=== PATIENT | female | born 1960 | race Caucasian/White ===

== ENCOUNTER 2017-10-03 11:19 | Emergency (ER) | payer OTHER, SELFPAY ==
[2017-10-03 11:31] VITALS: BP 163/73; PULSE 92; RESP 16; TEMP 36.1; O2SAT 99; BMI 44.4
--- NOTE | 2017-10-03 11:47 | DI.RAD.S_ITS ---
PROCEDURE: XR TOE LT MIN 2V INDICATIONS: big toe injury 4 days ago TECHNIQUE: 3 views of the first toe(s) acquired. COMPARISON: None. FINDINGS: Bones: There is dislocation at the first PIP joint. No visualized fracture. No suspicious bony lesions. Soft tissues: No suspicious soft tissue densities. IMPRESSION: First PIP joint dislocation without visualized fracture. Dictated by: Cierra Lombardi M.D. on 10/03/2017 at 12:08 Approved by: Cierra Lombardi M.D. on 10/03/2017 at 12:43
--- NOTE | 2017-10-03 12:05 | ED_ITS ---
HPI - Skin/Abscess/Foreign Bdy General Chief complaint: Skin/Abscess/Foreign Body Stated complaint: PRESSURE WOUND ON LEFT BIG TOE Time Seen by Provider: 10/03/17 11:42 Related Data Home Medications Medication Instructions Recorded Confirmed amitriptyline 25 mg PO DAILY 10/03/17 10/03/17 aspirin 81 mg PO DAILY 10/03/17 10/03/17 empagliflozin [Jardiance] 10 mg PO DAILY 10/03/17 10/03/17 ferrous sulfate 1 tab PO DAILY 10/03/17 10/03/17 insulin aspart U-100 [Novolog 10/03/17 10/03/17 U-100 Insulin aspart] insulin glargine [Toujeo SoloStar 10/03/17 10/03/17 U-300 Insulin] liraglutide [Victoza 2-Tremaine] 10/03/17 10/03/17 metformin 500 mg PO BID 10/03/17 10/03/17 omeprazole 20 mg PO BID 10/03/17 10/03/17 simvastatin 40 mg PO DAILY 10/03/17 10/03/17 valsartan [Diovan] 80 mg PO DAILY 10/03/17 10/03/17 Allergies Allergy/AdvReac Type Severity Reaction Status Date / Time codeine [CODEINE] AdvReac Unknown NAUSEA/VOMI Unverified 10/03/17 11:41 TTING COUNT INCLUDES THE [facility] Social History Smoking Status: Never smoker Exam Initial Vital Signs Initial Vital Signs: Vital Signs Temperature 97.0 F L 10/03/17 11:31 Pulse Rate 92 H 10/03/17 11:31 Respiratory Rate 16 10/03/17 11:31 Blood Pressure 163/73 H 10/03/17 11:31 Pulse Oximetry 99 10/03/17 11:31 Course Orders Ordered: ED Orders 10/03/17 11:47 XR toe LT min 2V Stat Vital Signs - 8 hr 10/03/17 11:31 Temperature 97.0 F L Pulse Rate 92 H Respiratory Rate 16 Blood Pressure 163/73 H Pulse Oximetry 99 Discharge Plan Departure Prescriptions: No Action valsartan [Diovan] 80 mg tablet 80 mg PO DAILY RF: 0 aspirin 81 mg tablet,delayed release (DR/EC) 81 mg PO DAILY RF: 0 simvastatin 40 mg tablet 40 mg PO DAILY RF: 0 amitriptyline 25 mg tablet 25 mg PO DAILY RF: 0 insulin aspart U-100 [Novolog U-100 Insulin aspart] 100 unit/mL solution RF: 0 omeprazole 20 mg capsule,delayed release(DR/EC) 20 mg PO BID RF: 0 metformin 500 mg tablet extended release 24 hr 500 mg PO BID RF: 0 ferrous sulfate 324 mg (65 mg iron) tablet,delayed release (DR/EC) 1 tab PO DAILY RF: 0 liraglutide [Victoza 2-Tremaine] 0.6 mg/0.1 mL (18 mg/3 mL) pen injector RF: 0 empagliflozin [Jardiance] 10 mg tablet 10 mg PO DAILY RF: 0 insulin glargine [Toujeo SoloStar U-300 Insulin] 300 unit/mL (1.5 mL) insulin pen RF: 0
[2017-10-03 12:43] VITALS: BP 146/78; PULSE 82; RESP 16; O2SAT 97
--- NOTE | 2017-10-03 12:52 | DI.RAD.S_ITS ---
PROCEDURE: XR TOE LT MIN 2V INDICATIONS: post reduction TECHNIQUE: 3 views of the left toe(s) acquired. COMPARISON: [facility], , XR TOE LT MIN 2V, 10/03/2017, 11:46. FINDINGS: Bones: No fractures or dislocations. There is anatomic alignment. Great toe interphalangeal joint degeneration, mild. No suspicious bony lesions. Soft tissues: No suspicious soft tissue densities. IMPRESSION: No fracture. Anatomic alignment which appears improved Dictated by: Cesar Lockwood M.D. on 10/03/2017 at 14:02 Approved by: Cesar Lockwood M.D. on 10/03/2017 at 14:06
--- NOTE | 2017-10-03 13:02 | ED.LOWEXIN ---
HPI - Extremity Injury (Lower) General Chief Complaint: Skin/Abscess/Foreign Body Stated Complaint: PRESSURE WOUND ON LEFT BIG TOE Time Seen by Provider: 10/03/17 11:42 Source: patient Mode of arrival: ambulatory Limitations: no limitations History of Present Illness HPI Narrative: Patient is a 57-year-old female who presents with left toe problem. She said she stubbed her toe 4 days ago. 2 days ago she noticed some blackening on her toe. She has bad diabetic neuropathy and does not have much feeling in her toes. She has in the past had a very severe case of cellulitis and pressure ulcers on that foot. So she is worried. She does not have any redness no fevers but she has noticed neuropathy is acting up. MD complaint: other (Left big toe injury) Related Data Home Medications Medication Instructions Recorded Confirmed Vitamin C 1 tab PO DAILY 10/03/17 10/03/17 amitriptyline 25 mg PO QPM 10/03/17 10/03/17 aspirin 81 mg PO QPM 10/03/17 10/03/17 ferrous sulfate 1 tab PO QPM 10/03/17 10/03/17 insulin aspart U-100 [Novolog 1 dose SUB-Q DIRECTED 10/03/17 10/03/17 U-100 Insulin aspart] insulin glargine [Toujeo SoloStar 66 units SUB-Q QPM 10/03/17 10/03/17 U-300 Insulin] liraglutide [Victoza 2-Tremaine] 1 dose SUB-Q DIRECTED 10/03/17 10/03/17 metformin 1,000 mg PO QPM 10/03/17 10/03/17 omega 8-jzc-mle-fish oil [Fish Oil] 1 cap PO DAILY 10/03/17 10/03/17 omeprazole 20 mg PO BID 10/03/17 10/03/17 sennosides [senna] 8.6 mg PO QPM 10/03/17 10/03/17 simvastatin 40 mg PO QPM 10/03/17 10/03/17 valsartan [Diovan] 80 mg PO QPM 10/03/17 10/03/17 Allergies Allergy/AdvReac Type Severity Reaction Status Date / Time codeine [CODEINE] AdvReac Unknown NAUSEA/VOMI Unverified 10/03/17 11:41 TTING Review of Systems Review of Systems GENERAL: Denies chills,fever HEENT: Denies throat pain RESPIRATORY: Denies dyspnea, cough, wheezing CARDIOVASCULAR: Denies chest pain, palpitations GASTROINTESTINAL: Denies nausea, vomiting MUSCULOSKELETAL: Denies extremity pain, injury SKIN: No rash, no laceration, no pruritus NEUROLOGIC: Denies weakness, dizziness, headache, numbness 8 point review of systems is negative except for those stated above and HPI All systems reviewed & are unremarkable except as noted in HPI and below PFSH Medical History Diabetes (Acute) Neuropathy (Acute) Social History Smoking Status: Never smoker Exam Initial Vital Signs Initial Vital Signs: Vital Signs Temperature 97.0 F L 10/03/17 11:31 Pulse Rate 92 H 10/03/17 11:31 Respiratory Rate 16 10/03/17 11:31 Blood Pressure 163/73 H 10/03/17 11:31 Pulse Oximetry 99 10/03/17 11:31 GENERAL: Well-appearing, well-nourished and in no acute distress. CARDIOVASCULAR: peripheral pulses in tact, cap refill <2 sec RESPIRATORY: No respiratory distress, speaks in full sentences without difficulty EXTREMITIES: Normal range of motion, no clubbing or edema. Neurovascularly intact NEUROLOGICAL: Cranial nerves II through XII grossly intact. Normal gait and speech. SKIN: Left big toe has 1.0 cm x 0.5 cm ecchymosis distal tip. No erythema nonpainful to touch. No gross pus were swelling trap refill less than 2 sec Procedures Orthopedic Joint Reduction Joint #1: Time Out Performed: Yes Side: left Joint Reduction Location: toe Analgesia: none Technique used: traction/counter-traction Post-reduction neuro exam: intact and no change Post-reduction vascular: intact and no change Post Reduction X-Ray Obtained: Yes Post Reduction X-Ray Results: reduced Splint Applied: No Patient Tolerated Procedure: Well Course Orders Ordered: ED Orders 10/03/17 11:47 XR toe LT min 2V Stat 10/03/17 12:52 XR toe LT min 2V Stat Vital Signs - 8 hr 10/03/17 11:31 10/03/17 12:43 Temperature 97.0 F L Pulse Rate 92 H 82 Respiratory Rate 16 16 Blood Pressure 163/73 H Blood Pressure [Left Arm] 146/78 H Pulse Oximetry 99 97 MDM - Extremity Injury (Lower) Imaging Data left toe x ray 1: Radiologist's impression: PROCEDURE: XR TOE LT MIN 2V INDICATIONS: big toe injury 4 days ago TECHNIQUE: 3 views of the first toe(s) acquired. COMPARISON: None. FINDINGS: Bones: There is dislocation at the first PIP joint. No visualized fracture. No suspicious bony lesions. Soft tissues: No suspicious soft tissue densities. IMPRESSION: First PIP joint dislocation without visualized fracture. Dictated by: Cierra Lombardi M.D. on 10/03/2017 at 12:08 left toe x ray 2: Radiologist's impression: PROCEDURE: XR TOE LT MIN 2V INDICATIONS: post reduction TECHNIQUE: 3 views of the left toe(s) acquired. COMPARISON: [facility], , XR TOE LT MIN 2V, 10/03/2017, 11:46. FINDINGS: Bones: No fractures or dislocations. There is anatomic alignment. Great toe interphalangeal joint degeneration, mild. No suspicious bony lesions. Soft tissues: No suspicious soft tissue densities. IMPRESSION: No fracture. Anatomic alignment which appears improved Dictated by: Cesar Lockwood M.D. on 10/03/2017 at 14:02 [facility] Narrative Medical decision making narrative: At this point I do not believe this to be a pressure sore. She has a distinct trauma and injury to her big toe. Does not appear infected no sign of cellulitis. Subsequently she was found have a dislocated toe. 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 Black spot and contusion should start to improve in get better over the next couple of days *Continue to take medications as directed *Follow up with your primary care provider in 2-3 days *Return to ER if you should have redness, pain, pus [or] any new, worsening or concerning symptoms Prescriptions: No Action valsartan [Diovan] 80 mg tablet 80 mg PO QPM RF: 0 aspirin 81 mg tablet,delayed release (DR/EC) 81 mg PO QPM RF: 0 simvastatin 40 mg tablet 40 mg PO QPM RF: 0 amitriptyline 25 mg tablet 25 mg PO QPM RF: 0 insulin aspart U-100 [Novolog U-100 Insulin aspart] 100 unit/mL solution 1 dose Sub-Q DIRECTED RF: 0 omeprazole 20 mg capsule,delayed release(DR/EC) 20 mg PO BID RF: 0 metformin 500 mg tablet extended release 24 hr 1,000 mg PO QPM RF: 0 ferrous sulfate 324 mg (65 mg iron) tablet,delayed release (DR/EC) 1 tab PO QPM RF: 0 liraglutide [Victoza 2-Tremaine] 0.6 mg/0.1 mL (18 mg/3 mL) pen injector 1 dose Sub-Q DIRECTED RF: 0 insulin glargine [Toujeo SoloStar U-300 Insulin] 300 unit/mL (1.5 mL) insulin pen 66 units Sub-Q QPM RF: 0 sennosides [senna] 8.6 mg Tablet 8.6 mg PO QPM RF: 0 omega 3-bqv-xpu-fish oil [Fish Oil] 1,000 mg (120 mg-180 mg) Capsule 1 cap PO DAILY RF: 0 Vitamin C 1 tab PO DAILY RF: 0 Referrals: Ayden Scruggs MD [Primary Care Provider] -
== END 2017-10-03 13:20 | disposition home or self-care (01) ==
PROVIDERS: Emergency Provider Emergency Medicine; PCP Internal Medicine
DX: S93.105A Unspecified dislocation of left toe(s), initial encounter (principal); S90.112A Contusion of left great toe without damage to nail, initial encounter; W22.8XXA Striking against or struck by other objects, initial encounter
CPT/HCPCS: 73660; 99282; 99283

== ENCOUNTER → 2017-10-10 13:12 | Outpatient (CLI) | payer OTHER, SELFPAY ==
--- NOTE | 2017-10-10 | OV.WND_ITS ---
Progress Note Details Patient Name: Alida Solano Patient Number: [id number] PatientPatientDate: 10/10/2017 Clinician: Olena Cantu Physician / Laboratory Helper: Justin Avlia SUBJECTIVE Chief Complaint This information was obtained from the patient Trauma to left great toe Allergies codeine HPI This information was obtained from the patient 10/10/17. Seen by Dr. Avila. The patient returns to clinic for review of a possible distal left 1st toe diabetic ulcer following a recent traumatic injury of the toe from hitting it on a chair. She reports increased pain initially and was seen in the ER where xrays indicated a possible dislocation of the DIP joint however she's not seen orthopedics and does not feel the toe is different in terms of size or shape and she does not currently report pain in the toe. 05/06/17. Seen by Rob Pollock PA-C. The patient reports no drainage from her ulcer since her last dressing change. 04/29/17. Seen by Dr. Avila. The patient does not report increased drainage or pain associated with the chronic left foot diabetic ulcer since her last visit. 04/22/17. Seen by Dr. Avila. The patient does not report increased drainage or pain associated with the chronic left foot diabetic ulcer since her last visit. 04/18/17. Seen by Dr. Avila. The patient does not report increased drainage or pain associated with the chronic left foot diabetic ulcer since her last visit. 04/15/17. Seen by Dr. Avila. The patient does not report increased drainage or pain associated with the chronic left foot diabetic ulcer since her last visit and she is tolerating negative pressure wound therapy without difficulty. 04/11/17. Seen by Dr. Avila. The patient does not report increased drainage or pain associated with the chronic left foot diabetic ulcer since her last visit and she is tolerating negative pressure wound therapy without difficulty. Her blood sugars are also much better controlled with most below 150. 04/01/17. Seen by Dr. Avila. The patient states that again the wound VAC became dysfunctional within a few hours of placement after her last visit. She does not report significant drainage from the Wynn grade 3 left foot diabetic ulcer and she is now off antibiotics. Her blood sugar has also improved since she is restarted her Lantus. 03/28/17. Seen by Dr. Avila. The patient had a staph negative pressure dressing placed 2 days ago however she said by the evening it had developed a leak and become dysfunctional she removed. She does not report pain associated with a Wynn grade 3 left foot diabetic ulcer nor increased drainage and she continues on doxycycline for wound infection that started as an abscess. She states her blood sugars have actually been over 300 and her primary care provider is adjusting her medication. She is told to stop her Lantus however her new prescription has not been filled. 03/26/17. Seen by Dr. Avila. The patient does not report pain or increased drainage associated with chronic left foot diabetic ulcer since her last visit. She completed her course of doxycycline yesterday that's been treating the abscess and associated cellulitis. 03/21/17. Seen by Dr. Avila. The patient does not report pain or increased drainage associated with the left foot diabetic ulcers since her last visit. She continues on antibiotics for the recently IandD'd associated abscess and does not report ever side effects and states her blood sugars are well controlled. She is offloading as recommended as well. 03/14/17. Seen by Dr. Avila. The patient is new to our clinic and presents with a left forefoot Wynn grade 3 diabetic ulcer that started as an abscess resulting from two sewing needles stuck in the foot. She developed cellulitis and presented to the [facility] on March 02 where the abscess was IandD'd. She developed severe acute renal failure soon thereafter likely due to IV contrast and possibly IV vancomycin. She was transferred to [facility] for emergent dialysis and her creatinine has now returned to normal. She was seen by her primary care provider earlier today who is concerned about the patient's follow-up since discharge from the hospital on Friday and in a particular her plan for dressings and wound care follow-up going forward. The patient does not report pain in the foot , fevers, or feeling unwell and she is now on doxycycline covering the Staph cultured introperatively. Her diabetes has historically been poorly controlled with her most recent A1c in December being around 10. Family History This information was obtained from the patient Cancer - Mother, Diabetes - Mother, Maternal Grandparents, Sibling, Child, Heart Disease - Father, Hypertension - Father, Sibling Social History This information was obtained from the patient Never smoker, Alcohol Use - None, Caffeine Use - Rarely, Children, Lives in - Private home, Marital Status - , Retired Past Medical History This information was obtained from the patient Patient has a medical history of: Type II Diabetes Acute Renal Failure Hypertension Diabetic foot ulcer - 03/02/2017 (Wynn grade 3; left foot 1st interdiginous space) Surgical History This information was obtained from the patient Patient has a surgical history of: Surgical removal of needles in left foot Tonsillectomy Vitrectomy Cataract surgery Complaints and Symptoms This information was obtained from the patient Patient complains of: General Notes: I have reviewed and concur with the Review of Systems and Past Family Social History documents completed by the clinician, I have reviewed and concur with the Wound Assessment document completed by the clinician Integumentary (Hair/Skin/Nails): Open Sore Musculoskeletal: Assistive Devices, Deformities Neurological: Loss of Protective Sensation Prior Wound History: Drainage, Erythema Patient denies complaints or symptoms related to: Cardiovascular (Central): Irregular heart beat Cardiovascular (Central/Peripheral): Intermittent Claudication, Lower extremity (leg) resting pain, Lower extremity (leg) swelling Constitutional Symptoms (General Health): Chills, Fever Gastrointestinal (GI): Stomach/abdominal pain Hematologic/Lymphatic: Bleeding / Clotting Disorders, Bleeding Tendency Prior Wound History: Bleeding, Pain Psychiatric: Memory Loss Respiratory: Oxygen Use, Shortness of Breath General Notes: Up to date Medications Victoza 2-Tremaine 0.6 mg/0.1 mL (18 mg/3 mL) subcutaneous pen injector subcutaneous pen injector subcutaneous once daily simvastatin 40 mg tablet oral tablet oral once daily metformin 1,000 mg tablet oral 2 2 tablet oral once daily valsartan 80 mg tablet oral tablet oral Novolog U-100 Insulin aspart 100 unit/mL subcutaneous solution subcutaneous 15- 20 15-20 solution subcutaneous every 6-8 hours as needed Gary Uriartear U-300 Insulin 300 unit/mL (1.5 mL) subcutaneous pen subcutaneous 66 66 insulin pen subcutaneous take at bedtime iron 325 mg (65 mg iron) tablet oral tablet oral Aspir-81 81 mg tablet,delayed release oral tablet,delayed release (DR/EC) oral omeprazole 40 mg capsule,delayed release oral capsule,delayed release(DR/EC) oral once daily amitriptyline 25 mg tablet oral tablet oral OBJECTIVE Constitutional Vital signs reviewed and noted. Well developed. Alert. Clean appearing.. Height/ Length: 66 in (167.64 cm), Weight: 275.7 lbs (125.32 kgs), BMI: 44.5. Ears, Nose, Mouth, and Throat: No clinically significant hearing loss on informal examination. Cardiovascular: Affected extremity exhibits no peripheral edema or cyanosis, is warm, and is well perfused. Capillary refill is less than 2 seconds. Gastrointestinal (GI): Obese. Nondistended.. Musculoskeletal: Significant plantar flexion of left 1st toe. Integumentary (Hair, Skin) No periwound erythema, warmth, or significant drainage. No periwound rashes appreciated or noted otherwise.. Refer to appropriate clinician wound documentation for this visit.. Moderate amount of callus over the left distal toe with capillary hemorrhage noted. ASSESSMENT Active Problems ICD-10 (Encounter Diagnosis) M20.62 - Acquired deformities of toe(s), unspecified, left foot (Encounter Diagnosis) L84 - Corns and callosities (Encounter Diagnosis) E11.8 - Type 2 diabetes mellitus with unspecified complications PLAN Additional Orders: Follow-Up Appointments Other information: If you develop fever, chills, increased pain, drainage, redness or swelling please call our office. If after hours, respond to the ER. Should you experience any significant changes in your wound(s) or have any questions regarding your home care instructions please contact the wound center @ [phone]. If after hours, contact your primary care physician or go to the hospital emergency room. Discharge from Outpatient Services. - No wound at this time Scribing Attestation I attest, as the nurse, that I scribed these orders for the physician. I've reviewed the clinician's documentation and agree with the evaluation and plan as written. Also, there's no ulcer over the distal left 1st toe today however there's a significant amount of callus present. She's been advised to liaise with Dr. Gamez, her mmd unit teacher, to discuss diabetic footwear in light of the evolving 1st toe plantarflexion deformity. Electronic Signature(s) Signed By: Date: Justin Avila MD 10/10/2017 15:59:11 Entered By: Justin Avila on 10/10/2017 14:37:06
== END ==
PROVIDERS: PCP Internal Medicine; Visit Provider Internal Medicine
DX: M20.62 Acquired deformities of toe(s), unspecified, left foot (principal); L84 Corns and callosities; E11.8 Type 2 diabetes mellitus with unspecified complications
CPT/HCPCS: 99212

== ENCOUNTER 2019-10-11 07:02 | Emergency (ER) | payer OTHER, SELFPAY ==
[2019-10-11 07:18] VITALS: BP 184/79; PULSE 96; RESP 16; TEMP 36.6; O2SAT 98
--- NOTE | 2019-10-11 07:48 | DI.RAD.S_ITS ---
PROCEDURE: XR FOOT LT MIN 3V INDICATIONS: pustular infected injured left great toe TECHNIQUE: 3 views of the foot were acquired. COMPARISON: None. FINDINGS: Bones: Questionable subtle cortical erosive changes are noted at the distal aspect of the distal first phalanx. No acute fracture or dislocation. Soft tissues: No tibiotalar joint effusion. Achilles tendon appears normal. IMPRESSION: Findings suspicious for bony abnormalities underlying infected right great toe. Findings may be associated with early osteomyelitis. If further characterization is warranted, MRI of the foot with and without contrast could be used. Dictated by: Betzaida Awan M.D. on 10/11/2019 at 8:20 Approved by: Betzaida Awan M.D. on 10/11/2019 at 8:21
--- NOTE | 2019-10-11 07:52 | ED.WOUNDLAC ---
HPI - Wound/Laceration General Chief Complaint: Wound/Laceration Stated Complaint: infection of left foot big toe Time Seen by Provider: 10/11/19 07:48 Source: patient Mode of arrival: Ambulatory Limitations: no limitations History of Present Illness HPI narrative: CC: Infected left great toe HPI: The patient is a 59-year-old female who is a type 2 diabetic with a history of hypertension who comes into the emergency department complaining that she has an infected left great toe. She injured the toe on and about September 28 when she was wearing shoes without socks and developed degloving an abrasion to her great toe. The patient developed a progressive ulcer and infection. She was seen at [facility] last Friday 1 week ago and administered an IV antibiotic and placed on Keflex orally. She was referred to the wound clinic but has not been seen in the wound clinic or been called by the wound clinic. She states that she has neuropathy and is not having any pain or discomfort at this time but periodically has pain from her neuropathy. She states that she has developed worsening pustular drainage as well as a cellulitis over the dorsum of her foot and distal left leg. She denies any new injury. She does not smoke cigarettes drink alcohol or use any drugs. She denies any fever chills or sweats as well as any headache or abnormal behavior. She has had no sore throat nasal congestion cough shortness of breath chest pain palpitations or dizziness. She denies any abdominal pain nausea vomiting diarrhea or any urinary symptoms. Related Data Home Medications Medication Instructions Recorded Confirmed Vitamin C 1 tab PO DAILY 10/03/17 10/03/17 amitriptyline 25 mg PO QPM 10/03/17 10/03/17 aspirin 81 mg PO QPM 10/03/17 10/03/17 ferrous sulfate 1 tab PO QPM 10/03/17 10/03/17 insulin aspart U-100 [Novolog 1 dose SUB-Q DIRECTED 10/03/17 10/03/17 U-100 Insulin aspart] insulin glargine U-300 conc 66 units SUB-Q QPM 10/03/17 10/03/17 [Toujeo SoloStar U-300 Insulin] liraglutide [Victoza 2-Tremaine] 1 dose SUB-Q DIRECTED 10/03/17 10/03/17 metformin 1,000 mg PO QPM 10/03/17 10/03/17 omega 1-zlf-dms-fish oil [Fish Oil] 1 cap PO DAILY 10/03/17 10/03/17 omeprazole 20 mg PO BID 10/03/17 10/03/17 sennosides [senna] 8.6 mg PO QPM 10/03/17 10/03/17 simvastatin 40 mg PO QPM 10/03/17 10/03/17 valsartan [Diovan] 80 mg PO QPM 10/03/17 10/03/17 Previous Rx's Medication Instructions Recorded doxycycline hyclate 100 mg PO BID #20 tab 10/11/19 levofloxacin [Levaquin] 500 mg PO DAILY #10 tab 10/11/19 metronidazole [Flagyl] 500 mg PO BID #20 tab 10/11/19 ondansetron HCl [Zofran] 4 mg PO Q8H PRN #12 tab 10/11/19 Allergies Allergy/AdvReac Type Severity Reaction Status Date / Time codeine [CODEINE] AdvReac Unknown NAUSEA/VOMI Verified 10/11/19 10:46 TTING Review of Systems Review of Systems Narrative: The patient's review of systems were all negative except for those mentioned in the history of present illness. Patient History Medical History Diabetes (Acute) Neuropathy (Acute) Social History Smoking Status: Never smoker Smoking Status: Never smoker Substance Use Type: does not use Exam Narrative Exam Narrative: PHYSICAL EXAM: CONSTITUTIONAL: Awake, Alert, Oriented, Coherent, Cooperative in NAD. Does not appear toxic or ill. HEAD: AT/NC EENT: PERRL, FROM of eyes, NOSE:No epistaxis or nasal drainage MOUTH:Oral mucosa is moist and pink, posterior pharynx is without erythema or exudate. NECK: Supple, no obvious JVD, Trachea is midline without stridor,. SPINE: Palpationof the cervical, Thoracic, Lumbar or Sacral spine reveals no gross deformity or tenderness. No CVA tenderness. THORAX: No deformity, retractions, chest wall tenderness. LUNGS: Clear, symmetrical breath sounds without respiratory distress. HEART: Normal heart tones, regular rhythm and rate without murmur. ABDOMEN: Soft, non-tender, without guarding, rebound, rigidity or palpable mass. EXTREMITIES: The tip of his left great toe is degloved with no skin. It is ulcerated with superficial pus. The dorsum of the foot is minimally erythematous as is the distal left leg without any warmth tenderness or excessive swelling. SKIN: No rash, bruising, petechiae or purpura. NEURO: Awake, alert, oriented, conversive, cranial nerves II-XII are symmetrical , moves all 4 extremities and is ambulatory. The patient has neuropathy in her foot and does not have any pain or discomfort at this time. MENTAL HEALTH: Does not appear anxious or depressed. Initial Vital Signs Initial Vital Signs: Vital Signs Temperature 97.9 F 10/11/19 07:18 Pulse Rate 96 H 10/11/19 07:18 Respiratory Rate 16 10/11/19 07:18 Blood Pressure 184/79 H 10/11/19 07:18 Pulse Oximetry 98 10/11/19 07:18 Course Course Course Narrative: 1045: Patient's laboratory tests are within normal limits. Her inflammatory markers an infectious markers are not tremendously elevated. White blood count is normal. The patient's x-ray suggests the possibility of early osteomyelitis. The patient's antibiotic therapy will be changed to Doxycycline 100 mg BID and Flagyl 500 mg b.i.d.. The patient is a diabetic. Flagyl will be added toanaerobes doxycycline to treat staph Orders Ordered: Discontinued Medications Bacitracin (Bacitracin) 1 applic TOP NOW ONE Stop: 10/11/19 10:22 Vancomycin HCl/Dextrose (Vancomycin) 1,500 mg in 300 mls @ 200 mls/hr IV NOW ONE Stop: 10/11/19 09:20 Last Infusion: 10/11/19 10:45 Dose: 0 mls/hr Documented by: Admin: 10/11/19 08:16 Dose: 200 mls/hr Documented by: JUANCHO Vital Signs Vital signs: Vital Signs - 8 hr 10/11/19 07:18 10/11/19 09:29 Temperature 97.9 F Pulse Rate 96 H 80 Respiratory Rate 16 16 Blood Pressure 184/79 H 107/53 L Pulse Oximetry 98 97 MDM - Wound/Laceration Lab Data Result diagrams: 10/11/19 07:57 10/11/19 07:57 Labs: Lab Results 10/11/19 10/11/1910/10/20 Range/Units 07:57 07:57 07:57 WBC 7.3 (4.5-11.0) X10^3/uL RBC 5.30 H (4.0-5.2) X10^6/uL Hgb 14.9 (12.0-16.0) g/dL Hct 45.0 (36-46) % MCV 85.0 (80-100) fL MCH 28.1 (26-34) PG MCHC 33.0 (30-36) % RDW 13.9 (11.6-14.8) % Plt Count 221 (150-400) X10^3/uL Neut % (Auto) 61.5 (50-75) % Lymph % (Auto) 28.8 (25-40) % [place] % (Auto) 6.6 (3-14) % Eos % (Auto) 2.2 (2-4) % Baso % (Auto) 0.9 (0-2) % Neut # (Auto) 4500 (5788-9186) /uL Lymph # (Auto) 2100 (4313-5000) /uL Lancaster # (Auto) 500 (0-900) /uL Eos # (Auto) 200 (0-450) /uL Baso # (Auto) 100 (0-100) /uL ESR 4 (0-20) MM/HR Sodium 135 L (137-145) mmol/L Potassium 4.4 (3.4-5.1) mmol/L Chloride 98 (98-107) mmol/L Carbon Dioxide 32 (22-32) mmol/L BUN 15 (7-17) mg/dL Creatinine 0.51 L (0.52-1.04) mg/dL Estimated GFR > 60.0 (>60) mL/min BUN/Creatinine Ratio 29.4 H (6-22) Glucose 293 H (70-100) mg/dL Lactate (0.7-2.1) mmol/L Calcium 9.1 (8.4-10.2) mg/dL Total Bilirubin 0.3 (0.2-1.3) mg/dL AST 22 (14-36) IU/L ALT 19 (<35) IU/L Alkaline Phosphatase 132 H (38-126) U/L C-Reactive Protein 1.7 H (<1.0) mg/dL Total Protein 6.4 (6.3-8.2) g/dL Albumin 3.5 (3.5-5.0) g/dL Globulin 2.9 (1.7-4.1) g/dL Albumin/Globulin Ratio 1.2 (1.0-2.8) Procalcitonin < 0.05 (<0.5) ng/mL 10/11/19 Range/Units 07:57 WBC (4.5-11.0) X10^3/uL RBC (4.0-5.2) X10^6/uL Hgb (12.0-16.0) g/dL Hct (36-46) % MCV (80-100) fL MCH (26-34) PG MCHC (30-36) % RDW (11.6-14.8) % Plt Count (150-400) X10^3/uL Neut % (Auto) (50-75) % Lymph % (Auto) (25-40) % Lancaster % (Auto) (3-14) % Eos % (Auto) (2-4) % Baso % (Auto) (0-2) % Neut # (Auto) (0765-7707) /uL Lymph # (Auto) (6376-5601) /uL Lancaster # (Auto) (0-900) /uL Eos # (Auto) (0-450) /uL Baso # (Auto) (0-100) /uL ESR (0-20) MM/HR Sodium (137-145) mmol/L Potassium (3.4-5.1) mmol/L Chloride (98-107) mmol/L Carbon Dioxide (22-32) mmol/L BUN (7-17) mg/dL Creatinine (0.52-1.04) mg/dL Estimated GFR (>60) mL/min BUN/Creatinine Ratio (6-22) Glucose (70-100) mg/dL Lactate 2.0 (0.7-2.1) mmol/L Calcium (8.4-10.2) mg/dL Total Bilirubin (0.2-1.3) mg/dL AST (14-36) IU/L ALT (<35) IU/L Alkaline Phosphatase (38-126) U/L C-Reactive Protein (<1.0) mg/dL Total Protein (6.3-8.2) g/dL Albumin (3.5-5.0) g/dL Globulin (1.7-4.1) g/dL Albumin/Globulin Ratio (1.0-2.8) Procalcitonin (<0.5) ng/mL Discharge Plan Departure Patient Disposition: Home Clinical Impression: Injury of toe on left foot Qualifiers: Encounter type: initial encounter Qualified Code(s): S99.922A - Unspecified injury of left foot, initial encounter Diabetic toe ulcer Qualifiers: Diabetes mellitus type: type 2 Laterality: left Non-pressure ulcer stage: unspecified non-pressure ulcer stage Qualified Code(s): E11.621 - Type 2 diabetes mellitus with foot ulcer Cellulitis Qualifiers: Site of cellulitis: extremity Site of cellulitis of extremity: lower extremity Laterality: left Qualified Code(s): L03.116 - Cellulitis of left lower limb Discharge Date/Time: 10/11/19 11:33 Instructions: DI for Cellulitis -- Adult, DI for Osteomyelitis, DI for Wound Infection Activity Restrictions/Additional Instructions: 1. You need to follow-up with your primary care physician. You need to be re-evaluated in 48-72 hours for a wound infection.. 2. You need to take the antibiotics as prescribed. Doxycycline 100 mg twice a day and Flagyl 500 mg twice a day. 3. You need to make an appointment in be seen in follow-up by the wound clinic as soon as possible. 4. If you develop high worsening pain discomfort fever chills or sweats persistent nausea and vomiting feeling faint or passing-out you need to return to the emergency department. Prescriptions: New ondansetron HCl [Zofran] 4 mg tablet 4 mg PO Q8H PRN (Reason: nausea and vomiting) Qty: 12 RF: 0 levofloxacin [Levaquin] 500 mg tablet 500 mg PO DAILY Qty: 10 RF: 0 metronidazole [Flagyl] 500 mg tablet 500 mg PO BID Qty: 20 RF: 0 doxycycline hyclate 100 mg tablet 100 mg PO BID Qty: 20 RF: 0 No Action valsartan [Diovan] 80 mg tablet 80 mg PO QPM RF: 0 aspirin 81 mg tablet,delayed release (DR/EC) 81 mg PO QPM RF: 0 simvastatin 40 mg tablet 40 mg PO QPM RF: 0 amitriptyline 25 mg tablet 25 mg PO QPM RF: 0 insulin aspart U-100 [Novolog U-100 Insulin aspart] 100 unit/mL solution 1 dose Sub-Q DIRECTED RF: 0 omeprazole 20 mg capsule,delayed release(DR/EC) 20 mg PO BID RF: 0 metformin 500 mg tablet extended release 24 hr 1,000 mg PO QPM RF: 0 ferrous sulfate 324 mg (65 mg iron) tablet,delayed release (DR/EC) 1 tab PO QPM RF: 0 liraglutide [Victoza 2-Tremaine] 0.6 mg/0.1 mL (18 mg/3 mL) pen injector 1 dose Sub-Q DIRECTED RF: 0 insulin glargine U-300 conc [Toujeo SoloStar U-300 Insulin] 300 unit/mL (1.5 mL) insulin pen 66 units Sub-Q QPM RF: 0 sennosides [senna] 8.6 mg Tablet 8.6 mg PO QPM RF: 0 omega 3-ekj-xgd-fish oil [Fish Oil] 1,000 mg (120 mg-180 mg) Capsule 1 cap PO DAILY RF: 0 Vitamin C 1 tab PO DAILY RF: 0 Referrals: Sisi Rushing [Primary Care Provider] -
[2019-10-11 08:10] LABS: Add Manual Diff / Slide Review NO; Basophils Absolute Auto 100 /uL (0-100); Basophils Percent Auto 0.9 % (0-2); Eosinophils Absolute Auto 200 /uL (0-450); Eosinophils Percent Auto 2.2 % (2-4); Hemoglobin 14.9 g/dL (12.0-16.0); Lymphocytes Absolute Auto 2100 /uL (1100-4500); Lymphocytes Percent Auto 28.8 % (25-40); Mean Corpuscular Hemoglobin 28.1 PG (26-34); Monocytes Absolute Auto 500 /uL (0-900); Monocytes Percent Auto 6.6 % (3-14); Neutrophils Absolute Auto 4500 /uL (1500-7000); Neutrophils Percent Auto 61.5 % (50-75); Platelet Count 221 X10^3/uL (150-400); Red Cell Distribution Width 13.9 % (11.6-14.8); White Blood Cell Count 7.3 X10^3/uL (4.5-11.0)
[2019-10-11] MEDS: VANCOMYCIN 1,500 MG/300 ML FROZ.PIGGY 200 MG IV (08:16)
[2019-10-11 08:25] LABS: Alanine Aminotransferase 19 IU/L (<35); Albumin 3.5 g/dL (3.5-5.0); Albumin Globulin Ratio 1.2 (1.0-2.8); Alkaline Phosphatase 132 U/L (38-126); Aspartate Aminotransferase 22 IU/L (14-36); BUN Creatinine Ratio 29.4 (6-22); Bilirubin Total 0.3 mg/dL (0.2-1.3); Blood Urea Nitrogen 15 mg/dL (7-17); C-Reactive Protein Quant 1.7 mg/dL (<1.0); Calcium 9.1 mg/dL (8.4-10.2); Carbon Dioxide 32 mmol/L (22-32); Chloride 98 mmol/L (98-107); Estimated Glomerular Filt Rate > 60.0 mL/min (>60); Globulin 2.9 g/dL (1.7-4.1); Glucose 293 mg/dL (70-100); HEMOLYSIS < 15 (0-50); Potassium 4.4 mmol/L (3.4-5.1); Sodium 135 mmol/L (137-145); Total Protein 6.4 g/dL (6.3-8.2)
[2019-10-11 08:29] LABS: Erythrocyte Sedimentation Rate 4 MM/HR (0-20)
[2019-10-11 08:37] LABS: Procalcitonin < 0.05 ng/mL (<0.5)
[2019-10-11 09:26] VITALS: PULSE 81; O2SAT 96
[2019-10-11 09:29] VITALS: BP 107/53; PULSE 80; RESP 16; O2SAT 97
[2019-10-11 09:30] VITALS: PULSE 81; O2SAT 98
[2019-10-11 09:31] VITALS: BP 107/53; PULSE 81; O2SAT 99
[2019-10-11 10:00] VITALS: PULSE 83; O2SAT 99
--- NOTE | 2019-10-11 11:04 | PC.NURSE ---
Pt scheduled for wound care appointment at [facility] for 10/12/19 at 2pm check in. Pt provided information.
== END 2019-10-11 11:33 | disposition home or self-care (01) ==
PROVIDERS: Emergency Provider Emergency Medicine; PCP Internal Medicine
DX: E11.621 Type 2 diabetes mellitus with foot ulcer (principal); L03.116 Cellulitis of left lower limb; I10 Essential (primary) hypertension
CPT/HCPCS: 36415; 73630; 80053; 83605; 84145; 85025; 85651; 86140; 87070; 87077; 87147; 87205; 96365; 96366; 99284

== ENCOUNTER → 2019-10-12 14:56 | Outpatient (CLI) | payer OTHER, SELFPAY | PROVIDERS: PCP Internal Medicine; Referring Provider Emergency Medicine; Visit Provider Family Medicine | DX: E11.621 Type 2 diabetes mellitus with foot ulcer (principal); L97.521 Non-pressure chronic ulcer of other part of left foot limited to breakdown of skin; L08.9 Local infection of the skin and subcutaneous tissue, unspecified; L60.0 Ingrowing nail | CPT/HCPCS: 11042; 11765; 99203; 99213 ==

== ENCOUNTER → 2019-10-19 11:01 | Outpatient (CLI) | payer OTHER, SELFPAY | PROVIDERS: PCP Internal Medicine; Referring Provider Internal Medicine; Visit Provider Family Medicine | DX: E11.621 Type 2 diabetes mellitus with foot ulcer (principal); L97.521 Non-pressure chronic ulcer of other part of left foot limited to breakdown of skin; L08.9 Local infection of the skin and subcutaneous tissue, unspecified | CPT/HCPCS: 11042 ==

== ENCOUNTER → 2019-10-26 09:59 | Outpatient (CLI) | payer OTHER, SELFPAY | PROVIDERS: PCP Internal Medicine; Referring Provider Internal Medicine; Visit Provider Family Medicine | DX: E11.621 Type 2 diabetes mellitus with foot ulcer (principal); L97.521 Non-pressure chronic ulcer of other part of left foot limited to breakdown of skin; L03.116 Cellulitis of left lower limb | CPT/HCPCS: 99213; 99214 ==

== ENCOUNTER → 2019-10-26 10:05 | Outpatient (CLI) | payer OTHER, SELFPAY ==
[2019-10-26 11:39] LABS: Add Manual Diff / Slide Review NO; Basophils Absolute Auto 100 /uL (0-100); Basophils Percent Auto 0.7 % (0-2); Eosinophils Absolute Auto 200 /uL (0-450); Eosinophils Percent Auto 2.1 % (2-4); Hematocrit 45.6 % (36-46); Hemoglobin 14.9 g/dL (12.0-16.0); Lymphocytes Absolute Auto 3200 /uL (1100-4500); Lymphocytes Percent Auto 37.1 % (25-40); Mean Corpuscular HGB Conc 32.7 % (30-36); Mean Corpuscular Hemoglobin 27.6 PG (26-34); Mean Corpuscular Volume 84.3 fL (80-100); Monocytes Absolute Auto 600 /uL (0-900); Monocytes Percent Auto 6.8 % (3-14); Neutrophils Absolute Auto 4600 /uL (1500-7000); Neutrophils Percent Auto 53.3 % (50-75); Platelet Count 228 X10^3/uL (150-400); White Blood Cell Count 8.6 X10^3/uL (4.5-11.0)
[2019-10-26 11:53] LABS: Erythrocyte Sedimentation Rate 1 MM/HR (0-20)
[2019-10-26 12:24] LABS: C-Reactive Protein Quant 1.4 mg/dL (<1.0)
== END ==
PROVIDERS: PCP Internal Medicine; Referring Provider Family Medicine; Visit Provider Family Medicine
DX: E11.621 Type 2 diabetes mellitus with foot ulcer (principal); L97.521 Non-pressure chronic ulcer of other part of left foot limited to breakdown of skin; L08.9 Local infection of the skin and subcutaneous tissue, unspecified; L03.116 Cellulitis of left lower limb
CPT/HCPCS: 36415; 85025; 85651; 86140; 99213

== ENCOUNTER → 2019-10-28 15:05 | Outpatient (CLI) | payer OTHER, SELFPAY ==
--- NOTE | 2019-10-28 15:06 | DI.NM.S_ITS ---
PROCEDURE: NM BONE 3 PHASE RADIOPHARMACEUTICAL: 19.8 mCi Tc-99m MDP IV. INDICATIONS: Type 2 diabetes mellitus with foot ulcer TECHNIQUE: Multiple bone scintigrams were obtained after intravenous injection of Tc-99m MDP, including flow, blood pool, and delayed images centered to the region of interest. COMPARISON: [facility], CR, XR TOE LT MIN 2V, 10/03/2017, 12:52. [facility], CR, XR TOE LT MIN 2V, 10/03/2017, 11:46. [facility], CR, XR FOOT LT MIN 3V, 10/11/2019, 8:05. FINDINGS: The flow and blood pool images demonstrate increased vascular activity in the distal aspect of the left great toe. Delayed images demonstrate increased activity in the distal left great toe. The comparison radiograph of the left foot demonstrates bony erosion involving the tuft of the 1st distal phalanx. The scintigraphic findings are consistent with osteomyelitis. There is also increased activity on flow, blood pool and delayed images in the lateral aspect of the right foot at the right search, 4th, and 5th metatarsal base. Note is made of degenerative/arthritic changes in multiple interphalangeal joints. IMPRESSION: 1. Osteomyelitis of the distal right great toe. 2. There is also increased activity on flow, blood pool and delayed images in the lateral aspect of the right foot at the right 3rd, 4th, and 5th metatarsal base. Differential diagnosis include infection, acute trauma and inflammatory arthritis. Recommend radiographic correlation. Dictated by: Danisha De La Garza M.D. on 10/29/2019 at 12:50 Approved by: Danisha De La Garza M.D. on 10/29/2019 at 18:00
== END ==
PROVIDERS: PCP Internal Medicine; Referring Provider Family Medicine; Visit Provider Family Medicine
DX: E11.621 Type 2 diabetes mellitus with foot ulcer (principal); L97.521 Non-pressure chronic ulcer of other part of left foot limited to breakdown of skin; M86.9 Osteomyelitis, unspecified; L08.9 Local infection of the skin and subcutaneous tissue, unspecified
CPT/HCPCS: 78315; A9503

== ENCOUNTER → 2019-11-02 14:27 | Outpatient (CLI) | payer OTHER, SELFPAY | PROVIDERS: PCP Internal Medicine; Referring Provider Internal Medicine; Visit Provider Family Medicine | DX: E11.621 Type 2 diabetes mellitus with foot ulcer (principal); L97.521 Non-pressure chronic ulcer of other part of left foot limited to breakdown of skin; L03.116 Cellulitis of left lower limb; M86.172 Other acute osteomyelitis, left ankle and foot | CPT/HCPCS: 99213; 99214 ==

== ENCOUNTER → 2019-11-09 09:39 | Outpatient (CLI) | payer OTHER, SELFPAY | PROVIDERS: PCP Internal Medicine; Referring Provider Internal Medicine; Visit Provider Family Medicine | DX: E11.621 Type 2 diabetes mellitus with foot ulcer (principal); L97.521 Non-pressure chronic ulcer of other part of left foot limited to breakdown of skin; L03.116 Cellulitis of left lower limb; M86.172 Other acute osteomyelitis, left ankle and foot | CPT/HCPCS: 36415; 85025; 85651; 86140; 99213; 99214 ==

== ENCOUNTER → 2019-11-09 09:57 | Outpatient (CLI) | payer OTHER, SELFPAY ==
[2019-11-09 10:53] LABS: Add Manual Diff / Slide Review NO; Basophils Absolute Auto 100 /uL (0-100); Basophils Percent Auto 0.7 % (0-2); Eosinophils Absolute Auto 100 /uL (0-450); Eosinophils Percent Auto 1.7 % (2-4); Hematocrit 45.9 % (36-46); Hemoglobin 14.9 g/dL (12.0-16.0); Lymphocytes Absolute Auto 2200 /uL (1100-4500); Lymphocytes Percent Auto 26.8 % (25-40); Mean Corpuscular HGB Conc 32.6 % (30-36); Mean Corpuscular Hemoglobin 27.5 PG (26-34); Mean Corpuscular Volume 84.5 fL (80-100); Monocytes Absolute Auto 500 /uL (0-900); Neutrophils Absolute Auto 5300 /uL (1500-7000); Neutrophils Percent Auto 64.8 % (50-75); Platelet Count 202 X10^3/uL (150-400); Red Blood Cell Count 5.42 X10^6/uL (4.0-5.2); Red Cell Distribution Width 14.1 % (11.6-14.8); White Blood Cell Count 8.2 X10^3/uL (4.5-11.0)
[2019-11-09 11:20] LABS: Erythrocyte Sedimentation Rate 2 MM/HR (0-20)
[2019-11-09 11:23] LABS: C-Reactive Protein Quant 1.5 mg/dL (<1.0)
== END ==
PROVIDERS: PCP Internal Medicine; Referring Provider Family Medicine; Visit Provider Family Medicine
DX: E11.621 Type 2 diabetes mellitus with foot ulcer (principal); L97.521 Non-pressure chronic ulcer of other part of left foot limited to breakdown of skin
CPT/HCPCS: 36415; 85025; 85651; 86140

== ENCOUNTER → 2019-11-16 09:53 | Outpatient (CLI) | payer OTHER, SELFPAY | PROVIDERS: PCP Internal Medicine; Referring Provider Internal Medicine; Visit Provider Family Medicine | DX: E11.621 Type 2 diabetes mellitus with foot ulcer (principal); L97.521 Non-pressure chronic ulcer of other part of left foot limited to breakdown of skin; M86.172 Other acute osteomyelitis, left ankle and foot; L03.116 Cellulitis of left lower limb | CPT/HCPCS: 99213 ==

== ENCOUNTER → 2019-11-23 13:14 | Outpatient (CLI) | payer OTHER, SELFPAY | PROVIDERS: PCP Internal Medicine; Referring Provider Internal Medicine; Visit Provider Family Medicine | DX: E11.621 Type 2 diabetes mellitus with foot ulcer (principal); L97.521 Non-pressure chronic ulcer of other part of left foot limited to breakdown of skin; M86.172 Other acute osteomyelitis, left ankle and foot | CPT/HCPCS: 11042; 99213 ==

== ENCOUNTER → 2019-11-30 09:18 | Outpatient (CLI) | payer OTHER, SELFPAY | PROVIDERS: PCP Internal Medicine; Referring Provider Internal Medicine; Visit Provider Family Medicine | DX: E11.621 Type 2 diabetes mellitus with foot ulcer (principal); L97.521 Non-pressure chronic ulcer of other part of left foot limited to breakdown of skin; M86.172 Other acute osteomyelitis, left ankle and foot; L08.9 Local infection of the skin and subcutaneous tissue, unspecified; R53.81 Other malaise; R68.83 Chills (without fever); M79.10 Myalgia, unspecified site; R51 Headache; R53.83 Other fatigue; R94.5 Abnormal results of liver function studies; R79.82 Elevated C-reactive protein (CRP); R63.4 Abnormal weight loss; R63.0 Anorexia; E11.65 Type 2 diabetes mellitus with hyperglycemia | CPT/HCPCS: 36415; 80053; 83605; 84145; 85025; 86140; 87040; 97597; 99214 ==

== ENCOUNTER → 2019-11-30 10:22 | Outpatient (CLI) | payer OTHER, SELFPAY ==
[2019-11-30 11:20] LABS: Add Manual Diff / Slide Review NO; Basophils Absolute Auto 0 /uL (0-100); Basophils Percent Auto 0.7 % (0-2); Eosinophils Absolute Auto 0 /uL (0-450); Eosinophils Percent Auto 1.1 % (2-4); Hematocrit 43.2 % (36-46); Hemoglobin 14.2 g/dL (12.0-16.0); Lymphocytes Absolute Auto 900 /uL (1100-4500); Lymphocytes Percent Auto 19.1 % (25-40); Mean Corpuscular HGB Conc 32.9 % (30-36); Mean Corpuscular Hemoglobin 27.6 PG (26-34); Mean Corpuscular Volume 83.7 fL (80-100); Monocytes Absolute Auto 500 /uL (0-900); Neutrophils Absolute Auto 3100 /uL (1500-7000); Neutrophils Percent Auto 68.1 % (50-75); Platelet Count 129 X10^3/uL (150-400); Red Blood Cell Count 5.16 X10^6/uL (4.0-5.2); Red Cell Distribution Width 14.3 % (11.6-14.8); White Blood Cell Count 4.5 X10^3/uL (4.5-11.0)
[2019-11-30 11:31] LABS: Lactate (Lactic Acid) 1.2 mmol/L (0.7-2.1)
[2019-11-30 11:41] LABS: Alanine Aminotransferase 66 IU/L (<35); Albumin 3.2 g/dL (3.5-5.0); Albumin Globulin Ratio 1.3 (1.0-2.8); Alkaline Phosphatase 116 U/L (38-126); Aspartate Aminotransferase 64 IU/L (14-36); BUN Creatinine Ratio 19.3 (6-22); Blood Urea Nitrogen 11 mg/dL (7-17); Calcium 8.7 mg/dL (8.4-10.2); Carbon Dioxide 31 mmol/L (22-32); Chloride 99 mmol/L (98-107); Estimated Glomerular Filt Rate > 60.0 mL/min (>60); Globulin 2.5 g/dL (1.7-4.1); Glucose 303 mg/dL (70-100); HEMOLYSIS < 15 (0-50); Potassium 4.5 mmol/L (3.4-5.1); Sodium 135 mmol/L (137-145); Total Protein 5.7 g/dL (6.3-8.2)
[2019-11-30 12:05] LABS: Procalcitonin 1.12 ng/mL (<0.5)
[2019-11-30 12:08] LABS: C-Reactive Protein Quant 17.5 mg/dL (<1.0)
== END ==
PROVIDERS: PCP Internal Medicine; Referring Provider Family Medicine; Visit Provider Family Medicine
DX: E11.621 Type 2 diabetes mellitus with foot ulcer (principal); L97.521 Non-pressure chronic ulcer of other part of left foot limited to breakdown of skin; M86.172 Other acute osteomyelitis, left ankle and foot
CPT/HCPCS: 36415; 80053; 83605; 84145; 85025; 86140; 87040

== ENCOUNTER → 2019-12-07 09:38 | Outpatient (CLI) | payer OTHER, SELFPAY | PROVIDERS: PCP Internal Medicine; Referring Provider Internal Medicine; Visit Provider Family Medicine | DX: E11.621 Type 2 diabetes mellitus with foot ulcer (principal); L97.521 Non-pressure chronic ulcer of other part of left foot limited to breakdown of skin; M86.172 Other acute osteomyelitis, left ankle and foot; L08.9 Local infection of the skin and subcutaneous tissue, unspecified; Z79.2 Long term (current) use of antibiotics | CPT/HCPCS: 11042; 99212 ==

== ENCOUNTER → 2019-12-14 11:39 | Outpatient (CLI) | payer OTHER, SELFPAY | PROVIDERS: PCP Internal Medicine; Referring Provider Internal Medicine; Visit Provider Family Medicine | DX: E11.621 Type 2 diabetes mellitus with foot ulcer (principal); L97.521 Non-pressure chronic ulcer of other part of left foot limited to breakdown of skin; M86.172 Other acute osteomyelitis, left ankle and foot; L08.9 Local infection of the skin and subcutaneous tissue, unspecified; Z79.2 Long term (current) use of antibiotics | CPT/HCPCS: 11042 ==

== ENCOUNTER → 2019-12-21 09:15 | Outpatient (CLI) | payer OTHER, SELFPAY | PROVIDERS: PCP Internal Medicine; Referring Provider Internal Medicine; Visit Provider Family Medicine | DX: E11.621 Type 2 diabetes mellitus with foot ulcer (principal); L97.521 Non-pressure chronic ulcer of other part of left foot limited to breakdown of skin; M86.172 Other acute osteomyelitis, left ankle and foot; L08.9 Local infection of the skin and subcutaneous tissue, unspecified; Z79.2 Long term (current) use of antibiotics | CPT/HCPCS: 15275; Q4137 ==

== ENCOUNTER → 2019-12-28 10:57 | Outpatient (CLI) | payer OTHER, SELFPAY | PROVIDERS: PCP Internal Medicine; Referring Provider Internal Medicine; Visit Provider Family Medicine | DX: E11.621 Type 2 diabetes mellitus with foot ulcer (principal); L97.521 Non-pressure chronic ulcer of other part of left foot limited to breakdown of skin; M86.172 Other acute osteomyelitis, left ankle and foot; Z79.2 Long term (current) use of antibiotics | CPT/HCPCS: 15275; 99212; Q4137 ==

== ENCOUNTER → 2020-01-05 10:37 | Outpatient (CLI) | payer OTHER, SELFPAY | PROVIDERS: PCP Internal Medicine; Referring Provider Internal Medicine; Visit Provider Family Medicine | DX: E11.621 Type 2 diabetes mellitus with foot ulcer (principal); L97.521 Non-pressure chronic ulcer of other part of left foot limited to breakdown of skin; M86.09 Acute hematogenous osteomyelitis, multiple sites; E11.40 Type 2 diabetes mellitus with diabetic neuropathy, unspecified; Z79.2 Long term (current) use of antibiotics | CPT/HCPCS: 15275; Q4137 ==

== ENCOUNTER → 2020-01-12 10:56 | Outpatient (CLI) | payer OTHER, SELFPAY | PROVIDERS: PCP Internal Medicine; Referring Provider Internal Medicine; Visit Provider Family Medicine | DX: E11.621 Type 2 diabetes mellitus with foot ulcer (principal); L97.521 Non-pressure chronic ulcer of other part of left foot limited to breakdown of skin; M86.172 Other acute osteomyelitis, left ankle and foot; Z79.2 Long term (current) use of antibiotics | CPT/HCPCS: 15275; 99213; Q4137 ==

== ENCOUNTER → 2020-01-18 11:16 | Outpatient (CLI) | payer OTHER, SELFPAY | PROVIDERS: PCP Internal Medicine; Referring Provider Internal Medicine; Visit Provider Family Medicine | DX: E11.43 Type 2 diabetes mellitus with diabetic autonomic (poly)neuropathy (principal); M86.172 Other acute osteomyelitis, left ankle and foot; Z79.2 Long term (current) use of antibiotics | CPT/HCPCS: 99212; 99213 ==

== ENCOUNTER → 2020-02-10 14:11 | Outpatient (CLI) | payer OTHER, SELFPAY | PROVIDERS: PCP Internal Medicine; Referring Provider Internal Medicine; Visit Provider Family Medicine | DX: E11.43 Type 2 diabetes mellitus with diabetic autonomic (poly)neuropathy (principal); R23.4 Changes in skin texture | CPT/HCPCS: 99213 ==

== ENCOUNTER 2020-12-08 08:42 | Emergency (ER) | payer OTHER, SELFPAY ==
[2020-12-08] VITALS (20 sets, daily range): BP systolic 167–204; BP diastolic 72–107; PULSE 75–111; RESP 12–25; TEMP 36.9; O2SAT 87–97; BMI 46.2
--- NOTE | 2020-12-08 08:55 | DI.RAD.S_ITS ---
PROCEDURE: XR CHEST 1V INDICATIONS: short of breath TECHNIQUE: One view of the chest was acquired. COMPARISON: None. FINDINGS: Surgical changes and devices: None. Lungs and pleura: Bilateral interstitial prominence. Linear densities in the left midlung zone is likely atelectasis. No pleural effusions or pneumothorax. Mediastinum: Mediastinal contours appear normal. Heart size is normal. Bones and chest wall: No suspicious bony lesions. Overlying soft tissues appear unremarkable. IMPRESSION: 1. Bilateral interstitial prominence suggesting mild pulmonary congestion. 2. Atelectasis in the left midlung zone. Dictated by: Danisha De La Garza M.D. on 12/08/2020 at 10:05 Approved by: Danisha De La Garza M.D. on 12/08/2020 at 10:06
[2020-12-08 09:29] LABS: Add Manual Diff / Slide Review NO; Basophils Absolute Auto 100 /uL (0-100); Eosinophils Absolute Auto 200 /uL (0-450); Eosinophils Percent Auto 2.6 % (2-4); Hematocrit 40.4 % (36-46); Hemoglobin 12.9 g/dL (12.0-16.0); Lymphocytes Absolute Auto 1500 /uL (1100-4500); Lymphocytes Percent Auto 23.7 % (25-40); Mean Corpuscular HGB Conc 31.8 % (30-36); Mean Corpuscular Volume 81.8 fL (80-100); Monocytes Absolute Auto 400 /uL (0-900); Monocytes Percent Auto 6.7 % (3-14); Neutrophils Absolute Auto 4200 /uL (1500-7000); Platelet Count 230 X10^3/uL (150-400); Red Blood Cell Count 4.94 X10^6/uL (4.0-5.2); Red Cell Distribution Width 15.6 % (11.6-14.8); White Blood Cell Count 6.4 X10^3/uL (4.5-11.0)
--- NOTE | 2020-12-08 09:29 | ED_ITS ---
HPI - SOB/Dyspnea General Chief Complaint: Shortness of Breath/Dyspnea Stated Complaint: SOB Time Seen by Provider: 12/08/20 08:49 Source: patient Mode of arrival: Wheelchair Limitations: no limitations History of Present Illness HPI Narrative: Patient is a 60-year-old female history of diabetes, hypertension who presents with increasing shortness of breath for last 2 days. She has had increased orthopnea shortness of breath with exertion, peripheral was swelling and abdominal swelling. She says that she feels like her abdomen is so swollen. She denies any severe chest pain but has maybe some rate sided chest mild discomfort. She has not had any fever or chills. She denies any productive cough. She is fully COVID vaccinated. Related Data Home Medications Medication Instructions Recorded Confirmed Vitamin C 1 tab PO DAILY 10/03/17 10/03/17 amitriptyline 25 mg tablet 25 mg PO QPM 10/03/17 10/03/17 aspirin 81 mg tablet,delayed 81 mg PO QPM 10/03/17 10/03/17 release ferrous sulfate 324 mg (65 mg 1 tab PO QPM 10/03/17 10/03/17 iron) tablet,delayed release insulin aspart U-100 100 unit/mL 1 dose SUB-Q DIRECTED 10/03/17 10/03/17 subcutaneous solution insulin glargine U-300 conc 300 66 units SUB-Q QPM 10/03/17 10/03/17 unit/mL (1.5 mL) subcutaneous pen liraglutide 0.6 mg/0.1 mL (18 mg/3 1 dose SUB-Q DIRECTED 10/03/17 10/03/17 mL) subcutaneous pen injector metformin 500 mg tablet,extended 1,000 mg PO QPM 10/03/17 10/03/17 release 24 hr omega 9-imp-lnn-fish oil 1,000 mg 1 cap PO DAILY 10/03/17 10/03/17 (120 mg-180 mg) capsule (Fish Oil) omeprazole 20 mg capsule,delayed 20 mg PO BID 10/03/17 10/03/17 release sennosides 8.6 mg tablet (senna) 8.6 mg PO QPM 18 10/03/17 simvastatin 40 mg tablet 40 mg PO QPM 10/03/17 10/03/17 valsartan 80 mg tablet 80 mg PO QPM 10/03/17 10/03/17 Previous Rx's Medication Instructions Recorded doxycycline hyclate 100 mg tablet 100 mg PO BID #20 tab 10/11/19 levofloxacin 500 mg tablet 500 mg PO DAILY #10 tab 10/11/19 (Levaquin) metronidazole 500 mg tablet 500 mg PO BID #20 tab 10/11/19 (Flagyl) ondansetron HCl 4 mg tablet 4 mg PO Q8H PRN #12 tab 10/11/19 (Zofran) furosemide 20 mg tablet (Lasix) 20 mg PO QAM #5 tab 12/08/20 Allergies Allergy/AdvReac Type Severity Reaction Status Date / Time codeine [CODEINE] AdvReac Unknown NAUSEA/VOMI Verified 10/11/19 10:46 TTING iv contrast Allergy Uncoded 12/08/20 08:54 Review of Systems Review of Systems Narrative: GENERAL: Denies chills, fatigue, malaise, fever, sweats, travel HEENT: Denies sinus pain, ear pain, sore throat, difficulty swallowing, neck pain RESPIRATORY: See HPI CARDIOVASCULAR: Denies chest pain, palpitations, orthopnea, edema GASTROINTESTINAL: Denies nausea, vomiting, abdominal pain, diarrhea, constipation, melena. : Denies dysuria, frequency, incontinence, hematuria, urinary retention, flank pain. MUSCULOSKELETAL: Denies weakness, joint pain, or bony pain SKIN: No rash, no erythema, no pruritus NEUROLOGIC: Denies weakness, dizziness, headache, numbness, change in speech, confusion PSYCHIATRIC: No concerning psychosocial issues. 12 point review of systems is negative except for those stated above and HPI Patient History Medical History (Updated 12/08/20 @ 12:47 by Juliana Bhatti DO) Diabetes Neuropathy Social History Smoking Status: Never smoker Smoking Status: Never smoker alcohol intake frequency: holidays/special occasions only Substance Use Type: does not use Exam Initial Vital Signs Initial Vital Signs: Vital Signs Temperature 98.5 F 12/08/20 08:50 Pulse Rate 82 12/08/20 08:50 Respiratory Rate 19 12/08/20 08:50 Blood Pressure 191/107 H 12/08/20 08:50 Pulse Oximetry 97 12/08/20 08:50 GENERAL: Alert 60-year-old female BMI 46 HEENT: Head atraumatic,EOMI, pupils reactive, face symmetric, moist mucous membranes CARDIOVASCULAR: Regular rate and rhythm without murmurs, rubs or gallops. RESPIRATORY: Breath sounds equal bilaterally, no wheezes rales or rhonchi. ABDOMEN: Soft, nontender. Normoactive bowel sounds all 4 quadrants. No guarding or rebound. EXTREMITIES: Normal range of motion, no clubbing. +2 pitting edema. Neur ovascularly intact NEUROLOGICAL: Alert and oriented x4.Normal gait and speech. SKIN: Warm, dry, no laceration, no petechiae, no rashes or lesions. Course Orders Ordered: ED Orders 12/08/20 09:25 Complete Blood Count AUTO DIFF Stat Comprehensive Metabolic Panel Stat D Dimer Stat Magnesium Stat NT-proBNP (BNP-Adult 18+) Stat Troponin & CK Cardiac Panel Stat 12/08/20 10:36 Urinalysis and Microscopic Stat 12/08/20 11:29 US periph venous low extrem bi Stat Discontinued Medications Albuterol/Ipratropium (Albuterol/Ipratropium 3 Ml Ampul) 3 ml INH NOW ONE Stop: 12/08/20 08:55 Last Admin: 12/08/20 09:31 Dose: 3 ml Documented by: TYLER Diphenhydramine HCl (Diphenhydramine 50 Mg/Ml Vial) 25 mg IV NOW ONE Stop: 12/08/20 11:13 Last Admin: 12/08/20 11:37 Dose: Not Given Documented by: JUNIOR Furosemide (Furosemide 40 Mg/4 Ml Vial) 40 mg IV NOW ONE Stop: 12/08/20 09:55 Last Admin: 12/08/20 10:07 Dose: 40 mg Documented by: OSWALDO Methylprednisolone (Methylprednisolone 125 Mg/2 Ml Vial) 125 mg IV NOW ONE Stop: 12/08/20 11:13 Last Admin: 12/08/20 11:38 Dose: Not Given Documented by: JUNIOR Vital Signs Vital signs: Vital Signs - 8 hr 12/08/20 10:36 12/08/20 11:01 12/08/20 11:03 Pulse Rate 83 111 H 95 H Respiratory Rate 13 25 H 18 Blood Pressure 191/87 H Pulse Oximetry 95 87 L 93 12/08/20 11:30 12/08/20 11:31 12/08/20 12:00 Pulse Rate 83 82 84 Respiratory Rate 13 19 21 Blood Pressure 173/72 H Pulse Oximetry 92 93 92 12/08/20 12:01 12/08/20 12:30 12/08/20 12:31 Pulse Rate 84 83 83 Respiratory Rate 18 16 21 Blood Pressure 197/82 H 181/77 H Pulse Oximetry 95 91 94 12/08/20 12:44 12/08/20 12:46 12/08/20 13:00 Pulse Rate 83 80 80 Respiratory Rate 12 15 22 Blood Pressure 200/87 H 188/75 H 187/88 H Pulse Oximetry 94 95 93 MDM - SOB/Dyspnea Lab Data Result diagrams: 12/08/20 09:25 12/08/20 09:25 Labs: Lab Results 12/08/20 12/08/20 12/08/20 Range/Units 09:12 09:25 09:25 WBC 6.4 (4.5-11.0) X10^3/uL RBC 4.94 (4.0-5.2) X10^6/uL Hgb 12.9 (12.0-16.0) g/dL Hct 40.4 (36-46) % MCV 81.8 (80-100) fL MCH 26.0 (26-34) PG MCHC 31.8 (30-36) % RDW 15.6 H (11.6-14.8) % Plt Count 230 (150-400) X10^3/uL Neut % (Auto) 66.0 (50-75) % Lymph % (Auto) 23.7 L (25-40) % [place] % (Auto) 6.7 (3-14) % Eos % (Auto) 2.6 (2-4) % Baso % (Auto) 1.0 (0-2) % Neut # (Auto) 4200 (7909-7095) /uL Lymph # (Auto) 1500 (0240-7370) /uL [place] # (Auto) 400 (0-900) /uL Eos # (Auto) 200 (0-450) /uL Baso # (Auto) 100 (0-100) /uL D-Dimer (<230) ng/mL Sodium (137-145) mmol/L Potassium (3.4-5.1) mmol/L Chloride (98-107) mmol/L Carbon Dioxide (22-32) mmol/L BUN (7-17) mg/dL Creatinine (0.52-1.04) mg/dL Estimated GFR (>60) mL/min BUN/Creatinine Ratio (6-22) Glucose (70-100) mg/dL Calcium (8.4-10.2) mg/dL Magnesium (1.6-2.3) mg/dL Total Bilirubin (0.2-1.3) mg/dL AST (14-36) IU/L ALT (<35) IU/L Alkaline Phosphatase (38-126) U/L Total Creatine Kinase (30-135) U/L CK-MB (CK-2) CK-MB (CK-2) Rel Index Troponin I (0.01-0.034) ng/mL NT-Pro-B Natriuret Pep 330 H (<125) pg/mL Total Protein (6.3-8.2) g/dL Albumin (3.5-5.0) g/dL Globulin (1.7-4.1) g/dL Albumin/Globulin Ratio (1.0-2.8) Urine Color Urine Appearance Urine pH (4.5-8.0) Ur Specific [place] (1.000-1.035) Urine Protein (Negative) Urine Glucose (UA) (Negative) g/dL Urine Ketones (NEGATIVE) Urine Occult Blood (Negative) Urine Nitrate (Negative) Urine Bilirubin (NEGATIVE) Urine Urobilinogen (0.2) E.U./dL Ur Leukocyte Esterase (NEGATIVE) Urine RBC (0-5/HPF) Urine WBC (0-5/HPF) Ur Squamous Epith Cells (0-5/HPF) Urine Bacteria (None) Ur Culture Indicated? SARS-CoV-2 (PCR) Negative (Negative) 12/08/20 12/08/20 12/08/20 Range/Units 09:25 09:25 10:36 WBC (4.5-11.0) X10^3/uL RBC (4.0-5.2) X10^6/uL Hgb (12.0-16.0) g/dL Hct (36-46) % MCV (80-100) fL MCH (26-34) PG MCHC (30-36) % RDW (11.6-14.8) % Plt Count (150-400) X10^3/uL Neut % (Auto) (50-75) % Lymph % (Auto) (25-40) % [place] % (Auto) (3-14) % Eos % (Auto) (2-4) % Baso % (Auto) (0-2) % Neut # (Auto) (5282-9612) /uL Lymph # (Auto) (3902-4689) /uL [place] # (Auto) (0-900) /uL Eos # (Auto) (0-450) /uL Baso # (Auto) (0-100) /uL D-Dimer 386 H (<230) ng/mL Sodium 136 L (137-145) mmol/L Potassium 4.5 (3.4-5.1) mmol/L Chloride 100 (98-107) mmol/L Carbon Dioxide 31 (22-32) mmol/L BUN 15 (7-17) mg/dL Creatinine 0.52 (0.52-1.04) mg/dL Estimated GFR > 60.0 (>60) mL/min BUN/Creatinine Ratio 28.8 H (6-22) Glucose 295 H (70-100) mg/dL Calcium 9.3 (8.4-10.2) mg/dL Magnesium 1.7 (1.6-2.3) mg/dL Total Bilirubin 0.5 (0.2-1.3) mg/dL AST 20 (14-36) IU/L ALT 19 (<35) IU/L Alkaline Phosphatase 112 (38-126) U/L Total Creatine Kinase 23 L (30-135) U/L CK-MB (CK-2) TNP CK-MB (CK-2) Rel Index TNP Troponin I < 0.012 (0.01-0.034) ng/mL NT-Pro-B Natriuret Pep (<125) pg/mL Total Protein 6.5 (6.3-8.2) g/dL Albumin 3.6 (3.5-5.0) g/dL Globulin 2.9 (1.7-4.1) g/dL Albumin/Globulin Ratio 1.2 (1.0-2.8) Urine Color Yellow Urine Appearance Clear Urine pH 7.0 (4.5-8.0) Ur Specific [place] 1.015 (1.000-1.035) Urine Protein 2+ H (Negative) Urine Glucose (UA) 2+ H (Negative) g/dL Urine Ketones Negative (NEGATIVE) Urine Occult Blood Negative (Negative) Urine Nitrate Negative (Negative) Urine Bilirubin Negative (NEGATIVE) Urine Urobilinogen 0.2 (0.2) E.U./dL Ur Leukocyte Esterase Negative (NEGATIVE) Urine RBC None seen (0-5/HPF) Urine WBC None seen (0-5/HPF) Ur Squamous Epith Cells 5-10 /hpf H (0-5/HPF) Urine Bacteria None seen (None) Ur Culture Indicated? Cult not indicated SARS-CoV-2 (PCR) (Negative) Imaging Data Chest x-ray: Radiologist's Impression: PROCEDURE:? XR CHEST 1V ? INDICATIONS:? short of breath ? TECHNIQUE:? One view of the chest was acquired.? ? COMPARISON:? None. ? FINDINGS:? ? Surgical changes and devices:? None.? ? Lungs and pleura:? Bilateral interstitial prominence.? Linear densities in the left midlung zone is likely atelectasis.? No pleural effusions or pneumothorax.? ? Mediastinum:? Mediastinal contours appear normal.? Heart size is normal.? ? Bones and chest wall:? No suspicious bony lesions.? Overlying soft tissues appear unremarkable.? ? IMPRESSION:? ? 1. Bilateral interstitial prominence suggesting mild pulmonary congestion. 2. Atelectasis in the left midlung zone.? ? ? Dictated by: Danisha De La Garza M.D. on 12/08/2020 at 10:05 ? ? US - DVT: Radiologist's Impression: PROCEDURE:? US PERIPH VENOUS LOW EXTREM BI ? INDICATIONS:? ELEVATED D-DIMER ? TECHNIQUE:? Real-time imaging, as well as color and pulse Doppler interrogation, were performed of the deep veins of both legs from the inguinal ligament to the popliteal fossa.? ? COMPARISON:? None. ? FINDINGS:? Technically limited due to patient's body habitus. ? Right: The common femoral, femoral and popliteal veins are normally compressible, and free of intraluminal thrombus.? Color and pulse Doppler demonstrate normal phasic intravascular flow.? There is normal augmentation response to distal compression maneuver.? ? Left: The common femoral, femoral and popliteal veins are normally compressible, and free of intraluminal thrombus.? Color and pulse Doppler demonstrate normal phasic intravascular flow.? There is normal augmentation response to distal compression maneuver.? ? IMPRESSION:? No deep venous thrombosis in lower extremities identified. ? ? Dictated by: Danisha De La Garza M.D. on 12/08/2020 at 12:56 ? ? Approved by: Danisha De La Garza M.D. on 12/08/2020 at 12:56 ? ECG Data Interpretation: Normal sinus rhythm rate 77 WI interval 138 QRS [address] changes no T-wave inversions no priors to compare MDM Narrative Medical decision making narrative: Patient D-dimer slightly elevated. Initially CT angio ordered however she had renal issues with contrast in the past. She is taking metformin. We did discuss holding metformin and continuing do CT angio however patient's symptoms are very consistent with water retention and probable new onset congestive heart failure. O2 sats within normal limits BNP slightly elevated at 300. Decision for ultrasound the lower extremities bilaterally which are negative. Will start patient on Lasix with close outpatient follow-up and outpatient echocardiogram Patient has been to the bathroom numerous times she is overall feeling significantly better already. I discussed with her daily weights and decrease salt intake. She will follow-up with her PCP in regards to echocardiogram Discharge Plan Departure Patient Disposition: Home Clinical Impression: Edema, peripheral Instructions: DI for Heart Failure, Edema Activity Restrictions/Additional Instructions: *You have been diagnosed with peripheral edema *What to do: At this time her symptoms are most concerning for congestive heart failure. You will need an outpatient echocardiogram to look at how well your heart is pumping. For now let us take off some of the fluid with a water pill. You will need to follow up with her primary care provider next week so please call today to schedule an appointment I recommend weighing herself every day to see if you are gaining water weight *Continue to take medications as directed Lasix 20 mg once a day for 4 days--> SENT TO [facility] *Follow up with your primary care provider in 2-3 days *Return to ER if you should have increasing shortness of breath, chest pain, fever any new, worsening or concerning symptoms Prescriptions: New furosemide [Lasix] 20 mg tablet 20 mg PO QAM Qty: 5 RF: 0 No Action valsartan [Diovan] 80 mg tablet 80 mg PO QPM RF: 0 aspirin 81 mg tablet,delayed release (DR/EC) 81 mg PO QPM RF: 0 simvastatin 40 mg tablet 40 mg PO QPM RF: 0 amitriptyline 25 mg tablet 25 mg PO QPM RF: 0 insulin aspart U-100 [Novolog U-100 Insulin aspart] 100 unit/mL solution 1 dose Sub-Q DIRECTED RF: 0 omeprazole 20 mg capsule,delayed release(DR/EC) 20 mg PO BID RF: 0 metformin 500 mg tablet extended release 24 hr 1,000 mg PO QPM RF: 0 ferrous sulfate 324 mg (65 mg iron) tablet,delayed release (DR/EC) 1 tab PO QPM RF: 0 liraglutide [Victoza 2-Tremaine] 0.6 mg/0.1 mL (18 mg/3 mL) pen injector 1 dose Sub-Q DIRECTED RF: 0 insulin glargine U-300 conc [Toujeo SoloStar U-300 Insulin] 300 unit/mL (1.5 mL) insulin pen 66 units Sub-Q QPM RF: 0 sennosides [senna] 8.6 mg Tablet 8.6 mg PO QPM RF: 0 omega 1-zxe-pte-fish oil [Fish Oil] 1,000 mg (120 mg-180 mg) Capsule 1 cap PO DAILY RF: 0 Vitamin C 1 tab PO DAILY RF: 0 ondansetron HCl [Zofran] 4 mg tablet 4 mg PO Q8H PRN (Reason: nausea and vomiting) Qty: 12 RF: 0 levofloxacin [Levaquin] 500 mg tablet 500 mg PO DAILY Qty: 10 RF: 0 metronidazole [Flagyl] 500 mg tablet 500 mg PO BID Qty: 20 RF: 0 doxycycline hyclate 100 mg tablet 100 mg PO BID Qty: 20 RF: 0 Referrals: Sisi Rushing MD [Primary Care Provider] -
[2020-12-08] MEDS: ALBUTEROL/IPRATROPIUM 3 ML AMPUL INH (09:31)
--- NOTE | 2020-12-08 09:35 | RT ---
Pt ksotas sethi tx well, on room air with no distress noted. at bedside
[2020-12-08 09:37] LABS: COVID19 -Nasal RAPID Negative (Negative)
[2020-12-08 09:40] LABS: Alanine Aminotransferase 19 IU/L (<35); Albumin 3.6 g/dL (3.5-5.0); Albumin Globulin Ratio 1.2 (1.0-2.8); Alkaline Phosphatase 112 U/L (38-126); Aspartate Aminotransferase 20 IU/L (14-36); BUN Creatinine Ratio 28.8 (6-22); Bilirubin Total 0.5 mg/dL (0.2-1.3); Blood Urea Nitrogen 15 mg/dL (7-17); Calcium 9.3 mg/dL (8.4-10.2); Carbon Dioxide 31 mmol/L (22-32); Chloride 100 mmol/L (98-107); Creatine Kinase 23 U/L (30-135); Estimated Glomerular Filt Rate > 60.0 mL/min (>60); Globulin 2.9 g/dL (1.7-4.1); Glucose 295 mg/dL (70-100); HEMOLYSIS < 15 (0-50); Magnesium 1.7 mg/dL (1.6-2.3); Potassium 4.5 mmol/L (3.4-5.1); Sodium 136 mmol/L (137-145); Total Protein 6.5 g/dL (6.3-8.2)
[2020-12-08 09:49] LABS: NT-proBNP (BNP-Adult 18+) 330 pg/mL (<125)
[2020-12-08 09:51] LABS: Troponin I < 0.012 ng/mL (0.01-0.034)
--- NOTE | 2020-12-08 09:54 | PC.NURSE ---
pt states she hasn't been feeling well since nov 18. started with abd bloating with tenderness on palpation. and discomfort and a feeling of fullness and decreased appetite. Pt states SOB aproxx 4 days ago worse with ambulation and is unable to lay flat. Reports a increase of edema to BLE with 2+ pitting.
[2020-12-08] MEDS: FUROSEMIDE 40 MG/4 ML VIAL IV (10:07)
[2020-12-08 10:13] LABS: D Dimer 386 ng/mL (<230)
[2020-12-08 10:45] LABS: Bacteria Urine None Seen; RBC Urine None Seen (0-5/HPF); WBC Urine None Seen (0-5/HPF)
[2020-12-08 10:46] LABS: Appearance Urine UA CLEAR; Bilirubin Urine UA NEGATIVE (NEGATIVE); Color Urine UA YELLOW; Glucose Urine UA 2+ g/dL (Negative); Ketones Urine UA NEGATIVE (NEGATIVE); Leukocyte Esterase Urine UA NEGATIVE (NEGATIVE); Nitrite Urine UA NEGATIVE (Negative); Occult Blood Urine UA NEGATIVE (Negative); Protein Urine UA 2+ (Negative); Specific Gravity Urine UA 1.015 (1.000-1.035); Urobilinogen Urine UA 0.2 E.U./dL (0.2)
[2020-12-08 10:53] LABS: Culture Indicated Urine Cult Not Indicated; Squamous Epithelial Cell Urine 5-10 /HPF (0-5/HPF)
--- NOTE | 2020-12-08 11:29 | DI.US.S_ITS ---
PROCEDURE: US PERIPH VENOUS LOW EXTREM BI INDICATIONS: ELEVATED D-DIMER TECHNIQUE: Real-time imaging, as well as color and pulse Doppler interrogation, were performed of the deep veins of both legs from the inguinal ligament to the popliteal fossa. COMPARISON: None. FINDINGS: Technically limited due to patient's body habitus. Right: The common femoral, femoral and popliteal veins are normally compressible, and free of intraluminal thrombus. Color and pulse Doppler demonstrate normal phasic intravascular flow. There is normal augmentation response to distal compression maneuver. Left: The common femoral, femoral and popliteal veins are normally compressible, and free of intraluminal thrombus. Color and pulse Doppler demonstrate normal phasic intravascular flow. There is normal augmentation response to distal compression maneuver. IMPRESSION: No deep venous thrombosis in lower extremities identified. Dictated by: Danisha De La Garza M.D. on 12/08/2020 at 12:56 Approved by: Danisha De La Garza M.D. on 12/08/2020 at 12:56
== END 2020-12-08 13:16 | disposition home or self-care (01) ==
PROVIDERS: Emergency Provider Emergency Medicine; PCP Internal Medicine
DX: R60.9 Edema, unspecified (principal); R19.00 Intra-abdominal and pelvic swelling, mass and lump, unspecified site; R79.89 Other specified abnormal findings of blood chemistry; Z20.822 Contact with and (suspected) exposure to COVID-19
CPT/HCPCS: 36415; 71045; 80053; 81001; 82550; 83735; 83880; 84484; 85025; 85379; 87635; 93005; 93970; 94640; 96374; 99284; C9803; J1940

== ENCOUNTER → 2021-02-22 14:51 | Outpatient (CLI) | payer OTHER, SELFPAY ==
--- NOTE | 2021-02-22 15:16 | DI.ECHO.S_ITS ---
:Referring: KRUPA ROBLES : + + Interpretation Summary The left ventricular cavity is small. There is mild concentric left ventricular hypertrophy. The ejection fraction is estimated to be 70-75%. The LV is hyperdynamic. Doppler measurement is suggestive of an intracavitary gradient. Diastolic parameters suggest probable normal left ventricular diastolic function and normal filling pressures Right ventricular systolic function is at the lower limits of normal. The IVC is of normal diameter and collapses greater than 50% with a sniff. This suggests a low right atrial pressure of 3 mm Hg. No significnant valvular disease. There is no pericardial effusion. Procedure: A two-dimensional transthoracic echocardiogram with color flow and Doppler was performed. The study quality was technically adequate. Comparison is made with the echocardiogram of 03/05/2017. The patient was in sinus rhythm with heart rates between 76-94 bpm during the exam. Left Ventricle: The left ventricular cavity is small. An intracavitary gradient is suspected. There is mild concentric left ventricular hypertrophy. The ejection fraction is estimated to be 70-75%. Left ventricular wall motion is normal. Diastolic parameters suggest probable normal left ventricular diastolic function and normal filling pressures. Right Ventricle: The right ventricle is normal size. Right ventricular systolic function is at the lower limits of normal. Atria: The left atrial size is normal. Right atrial size is normal. There is no Doppler evidence for an interatrial shunt. Mitral Valve: The mitral valve leaflets are slightly calcified. There is mild mitral annular calcification. There is trace mitral regurgitation. Aortic Valve: The aortic valve is trileaflet. The aortic valve opens well. There is no aortic valve stenosis. No aortic regurgitation is present. Tricuspid Valve: The tricuspid valve is not well visualized, but is grossly normal. There is a trace or physiologic amount of tricuspid regurgitation. Pulmonic Valve: The pulmonic valve is not well visualized. There is no pulmonic valvular regurgitation. Great Vessels: The aortic root is normal size. The dimensions of the ascending aorta are normal. The IVC is of normal diameter and collapses greater than 50% with a sniff. This suggests a low right atrial pressure of 3 mm Hg. Pericardium/ Pleura There is no pericardial effusion. There is no pleural effusion. MMode/2D Measurements & Calculations LVIDd: 3.4 cm LVOT diam: 2.1 cm LVIDs: 2.2 cm Ao root diam: 3.1 cm FS: 35.8 % asc Aorta Diam: 3.1 cm IVSd: 1.0 cm LVPWd: 1.2 cm LV boles. diameter/BSA (cm/m^2): 1.5 LV sys. diameter/BSA (cm/m^2): 0.96 LA A2 area: 17.5 cm2 RA long axis: 4.6 cm LA A4 area: 15.5 cm2 RA area: 12.4 cm2 LA length (vol): 4.9 cm RA vol: 28.1 ml LA vol: 46.7 ml RA : 12.3 ml/m2 LA vol index: 20.5 ml/m2 IVC diam: 0.85 cm RVD1 (basal): 3.1 cm TAPSE: 1.5 cm Doppler Measurements & Calculations Ao V2 max: 148.5 cm/sec LVOT Max Surya: 98.3 cm/sec Ao V2 mean: 105.7 cm/sec LV V1 max P.9 mmHg Ao max P.8 mmHg LV V1 VTI: 19.6 cm Ao mean P.8 mmHg FANY(I,D): 2.3 cm2 Ao V2 VTI: 29.9 cm FANY(V,D): 2.4 cm2 sev ratio: 0.66 FANY indexed to BSA (cm^2/m^2): 1.0 MV E max surya: 95.8 cm/sec PA V2 max: 125.5 cm/sec MV A max surya: 99.6 cm/sec PA V2 mean: 90.6 cm/sec MV E/A: 0.96 PA mean P.6 mmHg Med Peak E' Surya: 6.1 cm/sec PA pr(Accel): 41.3 mmHg E/E' med: 15.6 Lat Peak E' Surya: 9.9 cm/sec E/E' lat: 9.7 E/e' average: 12.7 MV dec time: 0.24 sec SV(LVOT): 69.6 ml Reading Physician:PM
== END ==
PROVIDERS: PCP Internal Medicine; Referring Provider Internal Medicine; Visit Provider Internal Medicine
DX: I50.9 Heart failure, unspecified (principal)
CPT/HCPCS: 93306

== ENCOUNTER 2022-09-23 07:47 | Emergency (ER) | payer OTHER, SELFPAY ==
[2022-09-23] VITALS (8 sets, daily range): BP systolic 146–208; BP diastolic 68–94; PULSE 74–91; RESP 16; TEMP 36.2; O2SAT 93–97; BMI 47.0
--- NOTE | 2022-09-23 08:09 | DI.US.S_ITS ---
PROCEDURE: US PERIPH VENOUS LOW EXTREM LT INDICATIONS: CELLULITIS; EDEMA TECHNIQUE: Real-time imaging, as well as color and pulse Doppler interrogation, were performed of the lower extremity deep veins from the inguinal ligament to the popliteal fossa. COMPARISON: None. FINDINGS: The common femoral, femoral and popliteal veins are normally compressible, and free of intraluminal thrombus. Color and pulse Doppler demonstrate normal phasic intraluminal flow. There is normal augmentation response to distal compression maneuver. IMPRESSION: No deep venous thrombosis. Dictated by: Cierra Lombardi M.D. on 09/23/2022 at 9:24 Approved by: Cierra Lombardi M.D. on 09/23/2022 at 9:25
--- NOTE | 2022-09-23 08:10 | ED.EXTPRO ---
HPI - Extremity Problem General Chief complaint: Extremity Problem,Nontraumatic Stated complaint: thinks she has a blood clot in LT leg Time Seen by Provider: 09/23/22 08:02 History of Present Illness HPI Narrative: Patient here with . Complains of left lower have anterior leg discomfort and redness. Patient states feels like cellulitis again. She was treated for the same the past 3 years by primary care with doxycycline and it did resolve. She has diabetes with neuropathy. Neuropathy pain increased with this in the past 4 days when symptoms started this past . No known injury or skin injury. No prior history of blood clots in legs or lungs. She denies any calf pain at this time. No thigh pain. No fever chills. Patient in no distress. Pants removed for exam. Shoes and socks removed Related Data Home Medications Medication Instructions Recorded Confirmed Vitamin C 1 tab PO DAILY 10/03/17 10/03/17 amitriptyline 25 mg tablet 25 mg PO QPM 10/03/17 10/03/17 aspirin 81 mg tablet,delayed 81 mg PO QPM 10/03/17 10/03/17 release ferrous sulfate 324 mg (65 mg 1 tab PO QPM 10/03/17 10/03/17 iron) tablet,delayed release insulin aspart U-100 100 unit/mL 1 dose SUBCUT DIRECTED 10/03/17 10/03/17 subcutaneous solution insulin glargine U-300 conc 300 66 units SUBCUT QPM 10/03/17 10/03/17 unit/mL (1.5 mL) subcutaneous pen liraglutide 0.6 mg/0.1 mL (18 mg/3 1 dose SUBCUT DIRECTED 10/03/17 10/03/17 mL) subcutaneous pen injector metformin 500 mg tablet,extended 1,000 mg PO QPM 10/03/17 10/03/17 release 24 hr omega [id number] oil 1,000 mg 1 cap PO DAILY 10/03/17 10/03/17 (120 mg-180 mg) capsule (Fish Oil) omeprazole 20 mg capsule,delayed 20 mg PO BID 10/03/17 10/03/17 release sennosides 8.6 mg tablet (senna) 8.6 mg PO QPM 10/03/17 10/03/17 simvastatin 40 mg tablet 40 mg PO QPM 10/03/17 10/03/17 valsartan 80 mg tablet 80 mg PO QPM 10/03/17 10/03/17 Previous Rx's Medication Instructions Recorded doxycycline hyclate 100 mg tablet 100 mg PO BID #20 tabs 10/11/19 levofloxacin 500 mg tablet 500 mg PO DAILY #10 tabs 10/11/19 (Levaquin) metronidazole 500 mg tablet 500 mg PO BID #20 tabs 10/11/19 (Flagyl) ondansetron HCl 4 mg tablet 4 mg PO Q8H PRN nausea and 10/11/19 (Zofran) vomiting #12 tabs furosemide 20 mg tablet (Lasix) 20 mg PO QAM #5 tabs 12/08/20 doxycycline monohydrate 100 mg 100 mg PO BID #14 caps 09/23/22 capsule Allergies Allergy/AdvReac Type Severity Reaction Status Date / Time codeine [CODEINE] AdvReac Unknown NAUSEA/VOMI Verified 10/11/19 10:46 TTING iv contrast Allergy Uncoded 12/08/20 08:54 Review of Systems Review of Systems Narrative: GENERAL: negative chills, fatigue, malaise, fever, sweats. HEENT: negative sinus pain, ear pain, sore throat RESPIRATORY: negative dyspnea, cough CARDIOVASCULAR: negative chest pain, palpitations GASTROINTESTINAL: negative nausea, vomiting, abdominal pain : negative dysuria, frequency, hematuria MUSCULOSKELETAL: negative muscle or bony pain SKIN: negative rash, skin lesions, positive erythema NEUROLOGIC: negative weakness, numbness ROS Unobtainable: All systems reviewed & are unremarkable except as noted in HPI and below Patient History Medical History (Updated 09/23/22 @ 08:32 by Justin Macario MD) Diabetes Neuropathy Social History Smoking Status: Never smoker Smoking Status: Never smoker alcohol intake frequency: holidays/special occasions only Substance Use Type: does not use Exam Narrative Exam Narrative: GENERAL: in no distress, not toxic not dyspneic HEAD: Normocephalic. EYES: Pupils equal round EXTREMITIES: No gross deformities. Examination left lower extremity nontender knee and ankle and foot. Foot warm soft and pink with brisk cap refills and strong pedal pulse. There is mild erythema to the distal 3rd of the anterior left leg. There is no no calf tenderness. Negative Harmon test negative Homans test. No palpable cords in the calf. Skin is intact. No lymphangitis or red streaking. The area erythema has no induration. It is dry. No vesicles. No lesions. No crepitus. No pain out of proportion to exam. Clinically not necrotizing fasciitis NEURO: AOx4. SKIN: Warm and dry PSYCH: Not anxious, is cooperative Initial Vital Signs Initial Vital Signs: Vital Signs Pulse Rate 91 H 09/23/22 07:58 Blood Pressure 208/94 H 09/23/22 07:58 Pulse Oximetry 96 09/23/22 07:58 Course Orders Ordered: Discontinued Medications Doxycycline Hyclate (Doxycycline Hyclate 100 Mg Tablet) 100 mg PO NOW ONE Stop: 09/23/22 08:10 Last Admin: 09/23/22 08:17 Dose: 100 mg Documented By: CTS Vital Signs Vital signs: Vital Signs - 8 hr 09/23/22 07:59 09/23/22 07:58 09/23/22 07:58 Temperature 97.1 F L Pulse Rate 91 H 91 H Respiratory Rate 16 Blood Pressure 208/94 H 208/94 H Pulse Oximetry 97 96 Oxygen Delivery Method Room Air 09/23/22 08:00 09/23/22 08:01 09/23/22 08:01 Temperature Pulse Rate 87 80 Respiratory Rate Blood Pressure 177/77 H Pulse Oximetry 96 96 Oxygen Delivery Method 09/23/22 08:30 09/23/22 08:31 09/23/22 08:31 Temperature Pulse Rate 75 75 Respiratory Rate Blood Pressure 146/68 H Pulse Oximetry 95 94 Oxygen Delivery Method 09/23/22 09:00 09/23/22 09:00 09/23/22 09:30 Temperature Pulse Rate 74 Respiratory Rate Blood Pressure 158/69 H 168/79 H Pulse Oximetry 93 Oxygen Delivery Method 09/23/22 09:30 Temperature Pulse Rate 75 Respiratory Rate Blood Pressure Pulse Oximetry 94 Oxygen Delivery Method Room Air MDM - Extremity (Nontraumatic) Imaging Data US - DVT: Radiologist's Impression: Ultrasound Report Signed Patient: Alida Solano MR#: [id number] : 1960 Acct:[id number] Age/Sex: 62 / F Date of Service: 09/23/22 Loc: ED Accession Number: [id number] ?? Procedure: US periph venous low extrem lt Ordering Provider: Justin Macario MD PROCEDURE:? US PERIPH VENOUS LOW EXTREM LT ? INDICATIONS:? CELLULITIS; EDEMA ? TECHNIQUE:? Real-time imaging, as well as color and pulse Doppler interrogation, were performed of the lower extremity deep veins from the inguinal ligament to the popliteal fossa.? ? COMPARISON:? None. ? FINDINGS:? The common femoral, femoral and popliteal veins are normally compressible, and free of intraluminal thrombus.? Color and pulse Doppler demonstrate normal phasic intraluminal flow.? There is normal augmentation response to distal compression maneuver. ? ? IMPRESSION:? No deep venous thrombosis. ? ? Dictated by: Cierra Lombardi M.D. on 09/23/2022 at 9:24 ? ? Approved by: Cierra Lombardi M.D. on 09/23/2022 at 9:25 ? MDM Narrative Medical decision making narrative: Patient here with . Complains of left lower have anterior leg discomfort and redness. Patient states feels like cellulitis again. She was treated for the same the past 3 years by primary care with doxycycline and it did resolve. She has diabetes with neuropathy. Neuropathy pain increased with this in the past 4 days when symptoms started this past . No known injury or skin injury. No prior history of blood clots in legs or lungs. She denies any calf pain at this time. No thigh pain. No fever chills. Patient in no distress. Pants removed for exam. Shoes and socks removed After history and exam doxycycline venous ultrasound of the leg [facility] CC: Left leg redness Complicating co-morbidities: History of cellulitis in the same leg. History of diabetes. History of neuropathy Data collected from: Patient and Medical records reviewed: Primary care office visit for left leg cellulitis October 11, 2019 and treated with doxycycline Differential considered: Includes but not limited to DVT SVT cellulitis necrotizing fasciitis Exam documented above, pertinent findings include: Mild erythema distal 3rd of the anterior left leg, nontender calf, no crepitus Lab Test results independently reviewed as above. Pertinent findings: No blood work indicated this time. Patient not toxic. Exam is reassuring Imaging studies independently reviewed: Left lower extremity venous Doppler negative for DVT Consultations: None indicated at this time Treatments: Doxycycline Re-evaluations: 9:37 a.m. Reviewed results with patient and . Patient agrees with treatment plan. Return precautions reviewed with her. She does agree for treatment of likely early cellulitis. She agrees at this time no blood work is indicated. Patient is not toxic. She desires discharge home. Blood pressure 158/79. Patient states she was just nervous when she arrived here. Discussion: Appropriate for discharge home. Treated clinically for early cellulitis. Clinically not necrotizing fasciitis. No blood work indicated at this time. No known injury. Antibiotics have been started here. Patient has primary care to follow up with this week. Nontoxic at discharge. Return precautions reviewed with her. She desires discharge home. Diagnosis: Left leg cellulitis Discharge Plan Departure Patient Disposition: Home Clinical Impression: Cellulitis Instructions: DI for Cellulitis -- Adult Activity Restrictions/Additional Instructions: Please see family doctor this week for re-evaluation. Please continue home medications. Prescription antibiotic doxycycline has been sent to your pharmacy to continue this afternoon. Return if worse if any questions or concerns. Prescriptions: New doxycycline monohydrate 100 mg capsule 100 mg PO BID Qty: 14 0RF No Action furosemide [Lasix] 20 mg tablet 20 mg PO QAM Qty: 5 0RF valsartan [Diovan] 80 mg tablet 80 mg PO QPM aspirin 81 mg tablet,delayed release (DR/EC) 81 mg PO QPM simvastatin 40 mg tablet 40 mg PO QPM amitriptyline 25 mg tablet 25 mg PO QPM insulin aspart U-100 [Novolog U-100 Insulin aspart] 100 unit/mL solution 1 dose Sub-Q DIRECTED omeprazole 20 mg capsule,delayed release(DR/EC) 20 mg PO BID metformin 500 mg tablet extended release 24 hr 1,000 mg PO QPM ferrous sulfate 324 mg (65 mg iron) tablet,delayed release (DR/EC) 1 tab PO QPM liraglutide [Victoza 2-Tremaine] 0.6 mg/0.1 mL (18 mg/3 mL) pen injector 1 dose Sub-Q DIRECTED Patient Comments: patient has not started yet insulin glargine U-300 conc [Toujeo SoloStar U-300 Insulin] 300 unit/mL (1.5 mL) insulin pen 66 units Sub-Q QPM sennosides [senna] 8.6 mg Tablet 8.6 mg PO QPM omega [id number]-fish oil [Fish Oil] 1,000 mg (120 mg-180 mg) Capsule 1 cap PO DAILY Vitamin C 1 tab PO DAILY ondansetron HCl [Zofran] 4 mg tablet 4 mg PO Q8H PRN (Reason: nausea and vomiting) Qty: 12 0RF levofloxacin [Levaquin] 500 mg tablet 500 mg PO DAILY Qty: 10 0RF metronidazole [Flagyl] 500 mg tablet 500 mg PO BID Qty: 20 0RF doxycycline hyclate 100 mg tablet 100 mg PO BID Qty: 20 0RF Referrals: ProviderJeff [Primary Care Provider] - Stand Alone Forms: Patient Portal/API
[2022-09-23] MEDS: DOXYCYCLINE HYCLATE 100 MG TABLET PO (08:17)
== END 2022-09-23 09:45 | disposition home or self-care (01) ==
PROVIDERS: Emergency Provider Emergency Medicine
DX: L03.116 Cellulitis of left lower limb (principal); Z79.899 Other long term (current) drug therapy
CPT/HCPCS: 93971; 99283

== ENCOUNTER 2022-10-25 12:35 | Inpatient (IN) | payer OTHER, SELFPAY ==
[2022-10-25] VITALS (30 sets, daily range): BP systolic 128–190; BP diastolic 58–82; PULSE 109–121; RESP 17–24; TEMP 36.3–37.3; O2SAT 95–100; BMI 43.0; BMI 40.7
--- NOTE | 2022-10-25 12:54 | DI.RAD.S_ITS ---
PROCEDURE: XR CHEST 1V INDICATIONS: suspected sepsis TECHNIQUE: One view of the chest was acquired. COMPARISON: [facility], CR, XR CHEST 1V, 12/08/2020, 9:08. FINDINGS: Surgical changes and devices: None. Lungs and pleura: Lungs are clear. No pleural effusions or pneumothorax. Mediastinum: Mediastinal contours appear normal. Heart size is normal. Bones and chest wall: No suspicious bony lesions. Overlying soft tissues appear unremarkable. IMPRESSION: No acute cardiopulmonary abnormality. Dictated by: Khai Colmenares M.D. on 10/25/2022 at 13:22 Approved by: Khai Colmenares M.D. on 10/25/2022 at 13:23
[2022-10-25 13:13] LABS: Prothrombin Time 11.2 SECONDS (10.1-12.7)
[2022-10-25] MEDS: SODIUM CHLORIDE 0.9% 1,000 ML 1000 ML IV ×7 (13:14→19:12)
[2022-10-25] MEDS: ONDANSETRON 4 MG/2 ML INJ IV ×3 (13:15→21:23)
[2022-10-25 13:16] LABS: PTT Partial Thromboplastin Tim 36 SECONDS (26-36)
[2022-10-25 13:19] LABS: Add Manual Diff / Slide Review NO; Basophils Absolute Auto 100 /uL (0-100); Basophils Percent Auto 0.5 % (0-2); Eosinophils Absolute Auto 0 /uL (0-450); Hematocrit 53.3 % (36-46); Hemoglobin 16.3 g/dL (12.0-16.0); Lymphocytes Absolute Auto 1900 /uL (1100-4500); Lymphocytes Percent Auto 15.5 % (25-40); Mean Corpuscular HGB Conc 30.5 % (30-36); Mean Corpuscular Hemoglobin 26.4 PG (26-34); Mean Corpuscular Volume 86.5 fL (80-100); Monocytes Absolute Auto 1100 /uL (0-900); Neutrophils Absolute Auto 9300 /uL (1500-7000); Platelet Count 329 X10^3/uL (150-400); Red Blood Cell Count 6.16 X10^6/uL (4.0-5.2); White Blood Cell Count 12.4 X10^3/uL (4.5-11.0)
[2022-10-25 13:20] LABS: Lactate (Lactic Acid) 3.1 mmol/L (0.7-2.1)
[2022-10-25 13:21] LABS: Alanine Aminotransferase 21 IU/L (<35); Albumin 4.1 g/dL (3.5-5.0); Albumin Globulin Ratio 1.5 (1.0-2.8); Alkaline Phosphatase 133 U/L (38-126); Aspartate Aminotransferase 33 IU/L (14-36); BUN Creatinine Ratio 17.2 (6-22); Bilirubin Total 0.4 mg/dL (0.2-1.3); Blood Urea Nitrogen 26 mg/dL (7-17); Calcium 9.2 mg/dL (8.4-10.2); Chloride 97 mmol/L (98-107); Estimated Glomerular Filt Rate 39 mL/min (>60); Globulin 2.7 g/dL (1.7-4.1); HEMOLYSIS < 15 (0-50); Lipase 53 U/L (23-300); Potassium 5.1 mmol/L (3.4-5.1); Sodium 135 mmol/L (137-145); Total Protein 6.8 g/dL (6.3-8.2)
[2022-10-25 13:31] LABS: Carbon Dioxide 7 mmol/L (22-32); Glucose 698 mg/dL (80-110)
[2022-10-25 13:37] LABS: Procalcitonin 0.15 ng/mL (<0.5)
[2022-10-25 13:52] LABS: Influenza A - CEPHEID Flu A NEGATIVE (NEGATIVE); Influenza B - CEPHEID Flu B NEGATIVE (NEGATIVE); Respiratory Syncytial Virus Negative (Negative)
[2022-10-25 14:00] LABS: COVID-19 CEPHEID 4-PLEX PCR Negative (Negative)
--- NOTE | 2022-10-25 14:14 | ED.NAVMDI ---
HPI - Nausea/Vomiting/Diarrhea General Chief complaint: Nausea/Vomiting/Diarrhea Stated complaint: N/V T-2 Time Seen by Provider: 10/25/22 13:39 Source: patient Mode of arrival: Wheelchair History of Present Illness HPI Narrative: Patient 62-year-old female history of insulin-dependent diabetes, with neuropathy, hypertension hyperlipidemia presents today with nausea vomiting. Reports that it started yesterday she is been throwing up nonstop for the last 24 hours. She reports that she is not felt well for last 1 week having some cough and congestion. Denies fever or chills. He denies any abdominal pain. She can not keep anything down. Denies any abdominal pain. Related Data Home Medications Medication Instructions Recorded Confirmed Vitamin C 1 tab PO DAILY 10/03/17 10/25/22 amitriptyline 25 mg tablet 25 mg PO QPM 10/03/17 10/25/22 aspirin 81 mg tablet,delayed 81 mg PO QPM 10/03/17 10/25/22 release insulin aspart U-100 100 unit/mL 1 dose SUBCUT DIRECTED 10/03/17 10/25/22 subcutaneous solution insulin glargine U-300 conc 300 66 units SUBCUT QPM 10/03/17 10/25/22 unit/mL (1.5 mL) subcutaneous pen metformin 500 mg tablet,extended 1,000 mg PO QPM 10/03/17 10/25/22 release 24 hr omega 6-beo-lny-fish oil 1,000 mg 1 cap PO DAILY 10/03/17 10/25/22 (120 mg-180 mg) capsule (Fish Oil) omeprazole 20 mg capsule,delayed 20 mg PO BID 10/03/17 10/25/22 release sennosides 8.6 mg tablet (senna) 8.6 mg PO QPM 10/03/17 10/25/22 simvastatin 40 mg tablet 40 mg PO QPM 10/03/17 10/25/22 valsartan 80 mg tablet 80 mg PO QPM 10/03/17 10/25/22 Previous Rx's Medication Instructions Recorded doxycycline hyclate 100 mg tablet 100 mg PO BID #20 tabs 10/11/19 metronidazole 500 mg tablet 500 mg PO BID #20 tabs 10/11/19 (Flagyl) ondansetron HCl 4 mg tablet 4 mg PO Q8H PRN nausea and 10/11/19 (Zofran) vomiting #12 tabs doxycycline monohydrate 100 mg 100 mg PO BID #14 caps 09/23/22 capsule Allergies Allergy/AdvReac Type Severity Reaction Status Date / Time Iodinated Contrast Media Allergy Severe Difficulty Verified 10/25/22 12:44 Breathing codeine [CODEINE] AdvReac Unknown NAUSEA/VOMI Verified 10/11/19 10:46 TTING Review of Systems Review of Systems ROS Unobtainable: All systems reviewed & are unremarkable except as noted in HPI and below Patient History Medical History (Updated 10/25/22 @ 14:35 by Juliana Bhatti DO) Diabetes Neuropathy Social History household members: spouse Smoking Status: Never smoker Smoking Status: Never smoker alcohol intake frequency: holidays/special occasions only Substance Use Type: does not use Exam Initial Vital Signs Initial Vital Signs: Vital Signs Temperature 97.4 F L 10/25/22 12:38 Pulse Rate 115 H 10/25/22 12:38 Respiratory Rate 22 10/25/22 12:38 Blood Pressure 128/58 L 10/25/22 12:38 Pulse Oximetry 99 10/25/22 12:38 Oxygen Delivery Method Room Air 10/25/22 12:38 GENERAL: Alert 62-year-old female appears to not feel well HEENT: Head atraumatic,EOMI, pupils reactive, face symmetric, dry mucous membranes CARDIOVASCULAR: Regular rate and rhythm without murmurs, rubs or gallops. RESPIRATORY: Breath sounds equal bilaterally, no wheezes rales or rhonchi. ABDOMEN: Soft, nontender. Normoactive bowel sounds all 4 quadrants. No guarding or rebound. EXTREMITIES: Normal range of motion, no clubbing or edema. Neurovascularly intact NEUROLOGICAL: Alert and oriented x4. SKIN: Warm, dry, no laceration, no petechiae, no rashes or lesions. Course Orders Ordered: ED Orders 10/25/22 12:35 Ketones (Beta-Hydroxybutyrate) Stat 10/25/22 12:54 XR chest 1V Stat EKG-12 Lead Stat RT Consult Eval and Treat NOW 10/25/22 12:55 Complete Blood Count AUTO DIFF Stat Comprehensive Metabolic Panel Stat Covid-19 + FLU A/B + RSV - PCR Stat Lactate (Lactic Acid) Stat Lipase Stat PTT Partial Thromboplastin Mal Stat Procalcitonin Stat Prothrombin Time INR Stat 10/25/22 13:57 Blood Culture Stat Venous Blood Gas Stat 10/25/22 14:33 Respiratory Panel (Film Array) Stat Acetaminophen (Acetaminophen 325 Mg Tablet) 650 mg PO Q4HR PRN PRN Reason: Fever/Mild Pain (1-3) Famotidine (Famotidine 20 Mg/2 Ml Vial) 20 mg IV BID ANNE Last Admin: 10/25/22 16:04 Dose: 20 mg Documented By: EDILSON Heparin Sodium (Porcine) (Heparin 5,000 Unit/Ml Vial) 5,000 unit SUBCUT BID ANNE Insulin Human Regular 100 unit (/ Sodium Chloride) 101 mls @ 6 mls/hr IV TITRATE ANNE; Protocol Last Titration: 10/25/22 16:06 Dose: 19.4 ml/hr, 19.4 mls/hr Documented By: EDILSON Co-signed By: MS Admin: 10/25/22 14:23 Dose: 6 ml/hr, 6 mls/hr Documented By: SB Co-signed By: EDILSON(2) Sodium Chloride (Normal Saline 0.9%) 1,000 mls @ 250 mls/hr IV CONT ANNE Stop: 10/26/22 02:59 Last Admin: 10/25/22 16:04 Dose: 999 mls/hr Documented By: EDILSON Sodium Chloride (Normal Saline 0.9%) 1,000 mls @ 1,000 mls/hr IV BOLUS ONE Stop: 10/25/22 19:09 Last Admin: 10/25/22 18:44 Dose: 1,000 mls/hr Documented By: EDILSON Sodium Chloride (Normal Saline 0.9%) 1,000 mls @ 1,000 mls/hr IV BOLUS ONE Stop: 10/25/22 19:45 Melatonin (Melatonin 3 Mg Tablet) 6 mg PO BEDTIME PRN PRN Reason: Insomnia Metoclopramide HCl (Metoclopramide 10 Mg/2 Ml Inj) 10 mg IV Q6HR PRN PRN Reason: Nausea And Vomiting Naloxone HCl (Naloxone 0.4 Mg/Ml Vial) 0.2 mg IV Q2MIN PRN PRN Reason: Opiate Reversal Ondansetron HCl (Ondansetron 4 Mg Odt) 4 mg SL NOW PRN PRN Reason: Nausea And Vomiting Ondansetron HCl (Ondansetron 4 Mg/2 Ml Inj) 4 mg IV Q4HR PRN PRN Reason: Nausea And Vomiting Last Admin: 10/25/22 16:06 Dose: 4 mg Documented By: EDILSON Polyethylene Glycol (Polyethylene Glycol 3350 17 Gm Powd.Pack) 17 gm PO DAILY PRN PRN Reason: Constipation Sennosides (Sennosides 8.6 Mg Tablet) 8.6 mg PO BID PRN PRN Reason: Constipation Discontinued Medications Sodium Chloride (Normal Saline 0.9%) 1,000 mls @ 1,000 mls/hr IV BOLUS ONE Stop: 10/25/22 13:53 Last Infusion: 10/25/22 14:30 Dose: 0 mls/hr Documented By: Admin: 10/25/22 13:14 Dose: 1,000 mls/hr Documented By: MARTÍNEZ Sodium Chloride (Normal Saline 0.9%) 1,000 mls @ 1,000 mls/hr IV BOLUS ONE Stop: 10/25/22 15:19 Last Infusion: 10/25/22 15:32 Dose: 0 mls/hr Documented By: Admin: 10/25/22 14:30 Dose: 1,000 mls/hr Documented By: DEEJAY Sodium Chloride (Normal Saline 0.9%) 1,000 mls @ 1,000 mls/hr IV BOLUS ONE Stop: 10/25/22 15:58 Last Admin: 10/25/22 15:34 Dose: 1,000 mls/hr Documented By: DEEJAY Sodium Chloride (Normal Saline 0.9%) 1,000 mls @ 1,000 mls/hr IV BOLUS ONE Stop: 10/25/22 17:08 Last Admin: 10/25/22 16:51 Dose: 1,000 mls/hr Documented By: EDILSON Sodium Chloride (Normal Saline 0.9%) 1,000 mls @ 1,000 mls/hr IV BOLUS ONE Stop: 10/25/22 18:08 Last Admin: 10/25/22 17:18 Dose: 1,000 mls/hr Documented By: EDILSON Ondansetron HCl (Ondansetron 4 Mg/2 Ml Inj) 4 mg IV NOW PRN PRN Reason: Nausea And Vomiting Last Admin: 10/25/22 13:15 Dose: 4 mg Documented By: MARTÍNEZ Vital Signs Vital signs: Vital Signs - 8 hr 10/25/22 12:38 10/25/22 14:07 10/25/22 14:08 Temperature 97.4 F L Pulse Rate 115 H 118 H 116 H Respiratory Rate 22 Blood Pressure 128/58 L Pulse Oximetry 99 95 100 Oxygen Delivery Method Room Air 10/25/22 14:08 10/25/22 14:30 10/25/22 14:30 Temperature Pulse Rate 118 H Respiratory Rate 20 Blood Pressure 136/60 137/63 Pulse Oximetry 100 Oxygen Delivery Method MDM - Nausea/Vomiting/Diarrhea Lab Data 10/25/22 12:55 10/25/22 17:24 Labs: Lab Results 10/25/22 10/25/22 10/25/22 Range/Units 12:35 12:35 12:35 WBC (4.5-11.0) X10^3/uL RBC (4.0-5.2) X10^6/uL Hgb (12.0-16.0) g/dL Hct (36-46) % MCV (80-100) fL MCH (26-34) PG MCHC (30-36) % RDW (11.6-14.8) % Plt Count (150-400) X10^3/uL Neut % (Auto) (50-75) % Lymph % (Auto) (25-40) % [place] % (Auto) (3-14) % Eos % (Auto) (2-4) % Baso % (Auto) (0-2) % Neut # (Auto) (9107-9022) /uL Lymph # (Auto) (6103-9357) /uL [place] # (Auto) (0-900) /uL Eos # (Auto) (0-450) /uL Baso # (Auto) (0-100) /uL PT (10.1-12.7) SECONDS INR (0.9-1.3) APTT (26-36) SECONDS VBG pH (7.33-7.43) VBG pCO2 (45-50) mmHg VBG pO2 (35-45) mmHg VBG HCO3 (24-28) mmol/L VBG Total CO2 (24-29) mmol/L VBG O2 Saturation (70-75) % VBG Base Excess (0-4) mmol/L FiO2 Sodium (137-145) mmol/L Potassium (3.4-5.1) mmol/L Chloride (98-107) mmol/L Carbon Dioxide (22-32) mmol/L BUN (7-17) mg/dL Creatinine (0.52-1.04) mg/dL Estimated GFR (>60) mL/min BUN/Creatinine Ratio (6-22) Glucose (80-110) mg/dL Hemoglobin A1c Cancelled Lactate (0.7-2.1) mmol/L Calcium (8.4-10.2) mg/dL Magnesium 2.2 (1.6-2.3) mg/dL Total Bilirubin (0.2-1.3) mg/dL AST (14-36) IU/L ALT (<35) IU/L Alkaline Phosphatase (38-126) U/L Total Protein (6.3-8.2) g/dL Albumin (3.5-5.0) g/dL Globulin (1.7-4.1) g/dL Albumin/Globulin Ratio (1.0-2.8) Lipase (23-300) U/L Procalcitonin (<0.5) ng/mL Ketones 10.42 H (<0.27) mmol/L Chlamy pneumoniae PCR (Not Detect) Adenovirus (PCR) (Not Detect) B. pertussis DNA (PCR) (Not Detecte) B.parapertussis DNA PCR (Not Detecte) Coronavirus OC43 (PCR) (Not Detect) Coronavirus HKU1 (PCR) (Not Detect) Coronavirus 229E (PCR) (Not Detect) SARS-CoV-2 (PCR) (Negative) Coronavirus NL63 (PCR) (Not Detect) Human Metapneumovir PCR (Not Detect) Influenza A (RT-PCR) (NEGATIVE) Influenza Type A (PCR) (Not Detect) Influenza B (RT-PCR) (NEGATIVE) Influenza Type B (PCR) (Not Detect) M. pneumoniae (PCR) (Not Detect) Parainfluenza 1 (PCR) (Not Detect) Parainfluenza 2 (PCR) (Not Detect) Parainfluenza 3 (PCR) (Not Detect) Parainfluenza 4 (PCR) (Not Detect) RSV (PCR) (Negative) Entero/Rhino (PCR) (Not Detect) 10/25/22 10/25/22 10/25/22 Range/Units 12:55 12:55 12:55 WBC 12.4 H (4.5-11.0) X10^3/uL RBC 6.16 H (4.0-5.2) X10^6/uL Hgb 16.3 H (12.0-16.0) g/dL Hct 53.3 H (36-46) % MCV 86.5 (80-100) fL MCH 26.4 (26-34) PG MCHC 30.5 (30-36) % RDW 16.0 H (11.6-14.8) % Plt Count 329 (150-400) X10^3/uL Neut % (Auto) 75.0 (50-75) % Lymph % (Auto) 15.5 L (25-40) % [place] % (Auto) 9.0 (3-14) % Eos % (Auto) 0.0 L (2-4) % Baso % (Auto) 0.5 (0-2) % Neut # (Auto) 9300 H (5216-2922) /uL Lymph # (Auto) 1900 (5421-5297) /uL [place] # (Auto) 1100 H (0-900) /uL Eos # (Auto) 0 (0-450) /uL Baso # (Auto) 100 (0-100) /uL PT 11.2 (10.1-12.7) SECONDS INR 1.0 (0.9-1.3) APTT 36 (26-36) SECONDS VBG pH (7.33-7.43) VBG pCO2 (45-50) mmHg VBG pO2 (35-45) mmHg VBG HCO3 (24-28) mmol/L VBG Total CO2 (24-29) mmol/L VBG O2 Saturation (70-75) % VBG Base Excess (0-4) mmol/L FiO2 Sodium 135 L (137-145) mmol/L Potassium 5.1 (3.4-5.1) mmol/L Chloride 97 L (98-107) mmol/L Carbon Dioxide 7 L* (22-32) mmol/L BUN 26 H (7-17) mg/dL Creatinine 1.51 H (0.52-1.04) mg/dL Estimated GFR 39 L (>60) mL/min BUN/Creatinine Ratio 17.2 (6-22) Glucose 698 H* (80-110) mg/dL Hemoglobin A1c Lactate (0.7-2.1) mmol/L Calcium 9.2 (8.4-10.2) mg/dL Magnesium (1.6-2.3) mg/dL Total Bilirubin 0.4 (0.2-1.3) mg/dL AST 33 (14-36) IU/L ALT 21 (<35) IU/L Alkaline Phosphatase 133 H (38-126) U/L Total Protein 6.8 (6.3-8.2) g/dL Albumin 4.1 (3.5-5.0) g/dL Globulin 2.7 (1.7-4.1) g/dL Albumin/Globulin Ratio 1.5 (1.0-2.8) Lipase 53 (23-300) U/L Procalcitonin 0.15 (<0.5) ng/mL Ketones (<0.27) mmol/L Chlamy pneumoniae PCR (Not Detect) Adenovirus (PCR) (Not Detect) B. pertussis DNA (PCR) (Not Detecte) B.parapertussis DNA PCR (Not Detecte) Coronavirus OC43 (PCR) (Not Detect) Coronavirus HKU1 (PCR) (Not Detect) Coronavirus 229E (PCR) (Not Detect) SARS-CoV-2 (PCR) (Negative) Coronavirus NL63 (PCR) (Not Detect) Human Metapneumovir PCR (Not Detect) Influenza A (RT-PCR) (NEGATIVE) Influenza Type A (PCR) (Not Detect) Influenza B (RT-PCR) (NEGATIVE) Influenza Type B (PCR) (Not Detect) M. pneumoniae (PCR) (Not Detect) Parainfluenza 1 (PCR) (Not Detect) Parainfluenza 2 (PCR) (Not Detect) Parainfluenza 3 (PCR) (Not Detect) Parainfluenza 4 (PCR) (Not Detect) RSV (PCR) (Negative) Entero/Rhino (PCR) (Not Detect) 10/25/22 10/25/22 10/25/22 Range/Units 12:55 12:55 13:57 WBC (4.5-11.0) X10^3/uL RBC (4.0-5.2) X10^6/uL Hgb (12.0-16.0) g/dL Hct (36-46) % MCV (80-100) fL MCH (26-34) PG MCHC (30-36) % RDW (11.6-14.8) % Plt Count (150-400) X10^3/uL Neut % (Auto) (50-75) % Lymph % (Auto) (25-40) % [place] % (Auto) (3-14) % Eos % (Auto) (2-4) % Baso % (Auto) (0-2) % Neut # (Auto) (4680-4695) /uL Lymph # (Auto) (2139-0453) /uL [place] # (Auto) (0-900) /uL Eos # (Auto) (0-450) /uL Baso # (Auto) (0-100) /uL PT (10.1-12.7) SECONDS INR (0.9-1.3) APTT (26-36) SECONDS VBG pH 7.08 L* (7.33-7.43) VBG pCO2 29.0 L (45-50) mmHg VBG pO2 36 (35-45) mmHg VBG HCO3 9 L (24-28) mmol/L VBG Total CO2 9 L (24-29) mmol/L VBG O2 Saturation 48 L (70-75) % VBG Base Excess -22.0 L (0-4) mmol/L FiO2 20 Sodium (137-145) mmol/L Potassium (3.4-5.1) mmol/L Chloride (98-107) mmol/L Carbon Dioxide (22-32) mmol/L BUN (7-17) mg/dL Creatinine (0.52-1.04) mg/dL Estimated GFR (>60) mL/min BUN/Creatinine Ratio (6-22) Glucose (80-110) mg/dL Hemoglobin A1c Lactate 3.1 H (0.7-2.1) mmol/L Calcium (8.4-10.2) mg/dL Magnesium (1.6-2.3) mg/dL Total Bilirubin (0.2-1.3) mg/dL AST (14-36) IU/L ALT (<35) IU/L Alkaline Phosphatase (38-126) U/L Total Protein (6.3-8.2) g/dL Albumin (3.5-5.0) g/dL Globulin (1.7-4.1) g/dL Albumin/Globulin Ratio (1.0-2.8) Lipase (23-300) U/L Procalcitonin (<0.5) ng/mL Ketones (<0.27) mmol/L Chlamy pneumoniae PCR (Not Detect) Adenovirus (PCR) (Not Detect) B. pertussis DNA (PCR) (Not Detecte) B.parapertussis DNA PCR (Not Detecte) Coronavirus OC43 (PCR) (Not Detect) Coronavirus HKU1 (PCR) (Not Detect) Coronavirus 229E (PCR) (Not Detect) SARS-CoV-2 (PCR) Negative (Negative) Coronavirus NL63 (PCR) (Not Detect) Human Metapneumovir PCR (Not Detect) Influenza A (RT-PCR) Flu a negative (NEGATIVE) Influenza Type A (PCR) (Not Detect) Influenza B (RT-PCR) Flu b negative (NEGATIVE) Influenza Type B (PCR) (Not Detect) M. pneumoniae (PCR) (Not Detect) Parainfluenza 1 (PCR) (Not Detect) Parainfluenza 2 (PCR) (Not Detect) Parainfluenza 3 (PCR) (Not Detect) Parainfluenza 4 (PCR) (Not Detect) RSV (PCR) Negative (Negative) Entero/Rhino (PCR) (Not Detect) 10/25/22 Range/Units 14:33 WBC (4.5-11.0) X10^3/uL RBC (4.0-5.2) X10^6/uL Hgb (12.0-16.0) g/dL Hct (36-46) % MCV (80-100) fL MCH (26-34) PG MCHC (30-36) % RDW (11.6-14.8) % Plt Count (150-400) X10^3/uL Neut % (Auto) (50-75) % Lymph % (Auto) (25-40) % [place] % (Auto) (3-14) % Eos % (Auto) (2-4) % Baso % (Auto) (0-2) % Neut # (Auto) (8131-5526) /uL Lymph # (Auto) (1457-5312) /uL [place] # (Auto) (0-900) /uL Eos # (Auto) (0-450) /uL Baso # (Auto) (0-100) /uL PT (10.1-12.7) SECONDS INR (0.9-1.3) APTT (26-36) SECONDS VBG pH (7.33-7.43) VBG pCO2 (45-50) mmHg VBG pO2 (35-45) mmHg VBG HCO3 (24-28) mmol/L VBG Total CO2 (24-29) mmol/L VBG O2 Saturation (70-75) % VBG Base Excess (0-4) mmol/L FiO2 Sodium (137-145) mmol/L Potassium (3.4-5.1) mmol/L Chloride (98-107) mmol/L Carbon Dioxide (22-32) mmol/L BUN (7-17) mg/dL Creatinine (0.52-1.04) mg/dL Estimated GFR (>60) mL/min BUN/Creatinine Ratio (6-22) Glucose (80-110) mg/dL Hemoglobin A1c Lactate (0.7-2.1) mmol/L Calcium (8.4-10.2) mg/dL Magnesium (1.6-2.3) mg/dL Total Bilirubin (0.2-1.3) mg/dL AST (14-36) IU/L ALT (<35) IU/L Alkaline Phosphatase (38-126) U/L Total Protein (6.3-8.2) g/dL Albumin (3.5-5.0) g/dL Globulin (1.7-4.1) g/dL Albumin/Globulin Ratio (1.0-2.8) Lipase (23-300) U/L Procalcitonin (<0.5) ng/mL Ketones (<0.27) mmol/L Chlamy pneumoniae PCR Not detected (Not Detect) Adenovirus (PCR) Not detected (Not Detect) B. pertussis DNA (PCR) Not detected (Not Detecte) B.parapertussis DNA PCR Not detected (Not Detecte) Coronavirus OC43 (PCR) Not detected (Not Detect) Coronavirus HKU1 (PCR) Not detected (Not Detect) Coronavirus 229E (PCR) Not detected (Not Detect) SARS-CoV-2 (PCR) Not detected (Negative) Coronavirus NL63 (PCR) Not detected (Not Detect) Human Metapneumovir PCR Not detected (Not Detect) Influenza A (RT-PCR) (NEGATIVE) Influenza Type A (PCR) Not detected (Not Detect) Influenza B (RT-PCR) (NEGATIVE) Influenza Type B (PCR) Not detected (Not Detect) M. pneumoniae (PCR) Not detected (Not Detect) Parainfluenza 1 (PCR) Not detected (Not Detect) Parainfluenza 2 (PCR) Not detected (Not Detect) Parainfluenza 3 (PCR) Not detected (Not Detect) Parainfluenza 4 (PCR) Not detected (Not Detect) RSV (PCR) Not detected (Negative) Entero/Rhino (PCR) Not detected (Not Detect) Imaging Data Chest x-ray: Radiologist's Impression: PROCEDURE:? XR CHEST 1V ? INDICATIONS:? suspected sepsis ? TECHNIQUE:? One view of the chest was acquired.? ? COMPARISON:? [facility], , XR CHEST 1V, 12/08/2020, 9:08. ? FINDINGS:? ? Surgical changes and devices:? None.? ? Lungs and pleura:? Lungs are clear.? No pleural effusions or pneumothorax.? ? Mediastinum:? Mediastinal contours appear normal.? Heart size is normal.? ? Bones and chest wall:? No suspicious bony lesions.? Overlying soft tissues appear unremarkable.? ? IMPRESSION:? No acute cardiopulmonary abnormality. ? ? ? Dictated by: Khai Colmenares M.D. on 10/25/2022 at 13:22 ? ECG Data Interpretation: Sinus tachycardia rate 117 [place] interval 140 QRS [address] changes low voltage no T-wave inversions MDM Narrative Medical decision making narrative: Patient 62-year-old female history of insulin-dependent diabetes not for about 1 week presents today for nausea vomiting. She is confirmed to be in DKA with a pH is 7.0 bicarb 7 glucose of 698 is an anion gap of 31. IV fluids have been started insulin drip has been started Zofran given. She is clinically dry on exam. No obvious source of infection her viral panel is negative chest x-ray is clear. She is some mild leukocytosis of 12 with a lactate of 3.1. Still awaiting urine sample. Dr. Sharma updated patient's symptoms test results and kindly accepts to the ICU Discharge Plan Departure Patient Disposition: Admitted As Inpatient Clinical Impression: DKA (diabetic ketoacidosis) Admit Date/Time: 10/25/22 14:39 Admit Provider: Chas Sharma
[2022-10-25] MEDS: INSULIN REGULAR, HUMAN 100 UNIT in SODIUM CHLORIDE 0.9% 100 ML 6 UNIT IV (14:23)
[2022-10-25 14:37] LABS: HCO3 VBG 9 mmol/L (24-28); PO2 VBG 36 mmHg (35-45)
[2022-10-25 14:38] LABS: Fractionated Inspired Oxygen 20; Oxygen Saturation VBG 48 % (70-75); Total CO2 VBG 9 mmol/L (24-29); pH VBG 7.08 (7.33-7.43)
--- NOTE | 2022-10-25 14:57 | PM.HP.1 ---
History of Present Illness History of Present Illness Date Patient Seen: 10/25/22 Chief complaint: N/V T-2 Narrative: Alida Solano is a 62-year-old female with past medical history of type 2 diabetes, neuropathy, hypertension, hyperlipidemia, GERD, and morbid obesity who presents with acute NV and found to be in DKA. Patient states she began feeling poorly the past few days. Had diarrhea yesterday and then began vomiting shortly after non-stop. She stopped taking her insulin because she was feeling so bad. She came to the ED where she was found to be in DKA with BG of 698, pH of 7, bicarb of 7 and gap of 31. She reports having DKA once back in 2007. She denies cough, sore throat, rhinorrhea or SOB. No dysuria. She was given 2L boluses and started on insulin drip with DKA protocol. [facility] Medical History (Updated 10/25/22 @ 14:35 by Juliana Bhatti DO) Diabetes Neuropathy Social History household members: spouse Smoking Status: Never smoker Meds Home Medications and Allergies Home Medications Medication Instructions Recorded Confirmed Type Vitamin C 1 tab PO DAILY 10/03/17 10/25/22 History amitriptyline 25 mg tablet 25 mg PO QPM 10/03/17 10/25/22 History aspirin 81 mg tablet,delayed 81 mg PO QPM 10/03/17 10/25/22 History release insulin aspart U-100 100 unit/mL 1 dose SUBCUT DIRECTED 10/03/17 10/25/22 History subcutaneous solution insulin glargine U-300 conc 300 66 units SUBCUT QPM 10/03/17 10/25/22 History unit/mL (1.5 mL) subcutaneous pen metformin 500 mg tablet,extended 1,000 mg PO QPM 10/03/17 10/25/22 History release 24 hr omega 2-ozj-urw-fish oil 1,000 mg 1 cap PO DAILY 10/03/17 10/25/22 History (120 mg-180 mg) capsule (Fish Oil) omeprazole 20 mg capsule,delayed 20 mg PO BID 10/03/17 10/25/22 History release sennosides 8.6 mg tablet (senna) 8.6 mg PO QPM 10/03/17 10/25/22 History simvastatin 40 mg tablet 40 mg PO QPM 10/03/17 10/25/22 History valsartan 80 mg tablet 80 mg PO QPM 10/03/17 10/25/22 History doxycycline hyclate 100 mg tablet 100 mg PO BID #20 tabs 10/11/19 10/25/22 Rx metronidazole 500 mg tablet 500 mg PO BID #20 tabs 10/11/19 10/25/22 Rx (Flagyl) ondansetron HCl 4 mg tablet 4 mg PO Q8H PRN nausea and 10/11/19 10/25/22 Rx (Zofran) vomiting #12 tabs doxycycline monohydrate 100 mg 100 mg PO BID #14 caps 09/23/22 10/25/22 Rx capsule Allergies Allergy/AdvReac Type Severity Reaction Status Date / Time Iodinated Contrast Media Allergy Severe Difficulty Verified 10/25/22 12:44 Breathing codeine [CODEINE] AdvReac Unknown NAUSEA/VOMI Verified 10/11/19 10:46 TTING Review of Systems Review of Systems Narrative: All other systems reviewed with the patient and are negative unless otherwise stated. Exam Vital Signs (past 8 hours): - 10/25/22 12:38 Temperature 97.4 F L Pulse Rate 115 H Respiratory Rate 22 Blood Pressure 128/58 L Pulse Oximetry 99 Oxygen Delivery Method Room Air Oxygen Delivery Method Room Air Narrative Exam Narrative: GEN: ill-appearing obese female HEENT: very dry mucous membranes, PERRL NECK: trachea midline, no JVD CV: regular rate and rhythm, no murmurs PULM: clear bilaterally ABD: soft, nontender, nondistended, no organomegaly EXT: warm and well perfused with no edema NEURO: awake, alert, oriented, no focal deficits Objective Labs 10/25/22 12:55 10/25/22 12:55 Labs: Laboratory Results - last 24 hr 10/25/22 10/25/22 10/25/22 12:55 12:55 12:55 WBC 12.4 H RBC 6.16 H Hgb 16.3 H Hct 53.3 H MCV 86.5 MCH 26.4 MCHC 30.5 RDW 16.0 H Plt Count 329 Neut % (Auto) 75.0 Lymph % (Auto) 15.5 L [place] % (Auto) 9.0 Eos % (Auto) 0.0 L Baso % (Auto) 0.5 Neut # (Auto) 9300 H Lymph # (Auto) 1900 [place] # (Auto) 1100 H Eos # (Auto) 0 Baso # (Auto) 100 PT 11.2 INR 1.0 APTT 36 VBG pH VBG pCO2 VBG pO2 VBG HCO3 VBG Total CO2 VBG O2 Saturation VBG Base Excess FiO2 Sodium 135 L Potassium 5.1 Chloride 97 L Carbon Dioxide 7 L* BUN 26 H Creatinine 1.51 H Estimated GFR 39 L BUN/Creatinine Ratio 17.2 Glucose 698 H* Lactate Calcium 9.2 Total Bilirubin 0.4 AST 33 ALT 21 Alkaline Phosphatase 133 H Total Protein 6.8 Albumin 4.1 Globulin 2.7 Albumin/Globulin Ratio 1.5 Lipase 53 Procalcitonin 0.15 SARS-CoV-2 (PCR) Influenza A (RT-PCR) Influenza B (RT-PCR) RSV (PCR) 10/25/22 10/25/22 10/25/22 12:55 12:55 13:57 WBC RBC Hgb Hct MCV MCH MCHC RDW Plt Count Neut % (Auto) Lymph % (Auto) [place] % (Auto) Eos % (Auto) Baso % (Auto) Neut # (Auto) Lymph # (Auto) [place] # (Auto) Eos # (Auto) Baso # (Auto) PT INR APTT VBG pH 7.08 L* VBG pCO2 29.0 L VBG pO2 36 VBG HCO3 9 L VBG Total CO2 9 L VBG O2 Saturation 48 L VBG Base Excess -22.0 L FiO2 20 Sodium Potassium Chloride Carbon Dioxide BUN Creatinine Estimated GFR BUN/Creatinine Ratio Glucose Lactate 3.1 H Calcium Total Bilirubin AST ALT Alkaline Phosphatase Total Protein Albumin Globulin Albumin/Globulin Ratio Lipase Procalcitonin SARS-CoV-2 (PCR) Negative Influenza A (RT-PCR) Flu a negative Influenza B (RT-PCR) Flu b negative RSV (PCR) Negative Assessment & Plan Assessment & Plan narrative: # severe DKA -presented with NV, found to have BG of 698, bicarb 7, pH 7 and gap 31 -continue insulin drip -s/p 3L NS boluses -ketones positive at 10 -continue DKA protocol -tele-ICU consulted # PATY -rerenal due to NV -Cr 1.51 and baseline 0.5 -IVF -monitor # hypertension -hold home ARB due to PATY #hyperlipidemia -continue statin # GERD -continue PPI # morbid obesity -BMI 40.7 # neuropathy -continue amitriptyline Code status is full code. DVT prophylaxis with heparin subcutaneous. Proxy is spouse Lemuel. I have reviewed home meds and used all available resources to reconcile the home meds. I spent a total of 35 minutes of critical care time on this patient's care today; this time is exclusive of procedural time. This patient will be admitted as ICU and will require greater than 2 midnights of hospital time to treat severe DKA.
[2022-10-25 15:01] LABS: Reflexed Lactate in 2 Hours Y
[2022-10-25 15:18] LABS: Magnesium 2.2 mg/dL (1.6-2.3)
[2022-10-25 15:39] LABS: Adenovirus Not Detected (Not Detect); B. parapertussis Not Detected (Not Detecte); Bordetella pertussis Not Detected (Not Detecte); Chlamydophila pneumoniae Not Detected (Not Detect); Coronavirus 229E Not Detected (Not Detect); Coronavirus HKU1 Not Detected (Not Detect); Coronavirus NL 63 Not Detected (Not Detect); Coronavirus OC43 Not Detected (Not Detect); Human Metapneumovirus Not Detected (Not Detect); Human Rhinovirus/Enterovirus Not Detected (Not Detect); Influenza A Not Detected (Not Detect); Influenza B Not Detected (Not Detect); Mycoplasma pneumoniae Not Detected (Not Detect); Parainfluenza Virus 1 Not Detected (Not Detect); Parainfluenza Virus 2 Not Detected (Not Detect); Parainfluenza Virus 3 Not Detected (Not Detect); Parainfluenza Virus 4 Not Detected (Not Detect); Respiratory Syncytial Virus Not Detected (Not Detect); SARS- CoV-2 Not Detected (Not Detecte)
[2022-10-25 15:46] LABS: Lactate 2HR (Lactic Acid Rflx) 1.9 mmol/L (0.7-2.1)
[2022-10-25 15:56] LABS: Ketones (Beta-Hydroxybutyrate) 10.42 mmol/L (<0.27)
[2022-10-25] MEDS: FAMOTIDINE 20 MG/2 ML VIAL IV (16:04)
[2022-10-25] MEDS: SODIUM CHLORIDE 0.9% 1,000 ML 999 ML IV (16:04)
--- NOTE | 2022-10-25 16:04 | PM.CN.EICU ---
History of Present Illness Consult details IF CAMERA ACTIVATED, patient seen via real-time interactive audiovisual communication: Camera activated Chief complaint: N/V T-2 Consent obtained for tele-board certified behavioral analyst care: Yes Patient Location: ICU Provider location (State): [place] Other participants/roles: bedside nursing team Dr. Sharma [facility] Medical History (Updated 10/25/22 @ 14:35 by Juliana Bhatti DO) Diabetes Neuropathy Social History Smoking Status: Never smoker Current Medications Current Medications Medications: Home Medications Vitamin C 1 tab PO DAILY 10/03/17 [History Confirmed 10/03/17] amitriptyline 25 mg tablet 25 mg PO QPM 10/03/17 [History Confirmed 10/03/17] aspirin 81 mg tablet,delayed release 81 mg PO QPM 10/03/17 [History Confirmed 10/03/17] ferrous sulfate 324 mg (65 mg iron) tablet,delayed release 1 tab PO QPM 10/03/17 [History Confirmed 10/03/17] insulin aspart U-100 100 unit/mL subcutaneous solution 1 dose SUBCUT DIRECTED 10/03/17 [History Confirmed 10/03/17] insulin glargine U-300 conc 300 unit/mL (1.5 mL) subcutaneous pen 66 units SUBCUT QPM 10/03/17 [History Confirmed 10/03/17] liraglutide 0.6 mg/0.1 mL (18 mg/3 mL) subcutaneous pen injector 1 dose SUBCUT DIRECTED 10/03/17 [History Confirmed 10/03/17] metformin 500 mg tablet,extended release 24 hr 1,000 mg PO QPM 10/03/17 [History Confirmed 10/03/17] omega [id number]-[id number]-diq-fish oil 1,000 mg (120 mg-180 mg) capsule (Fish Oil) 1 cap PO DAILY 10/03/17 [History Confirmed 10/03/17] omeprazole 20 mg capsule,delayed release 20 mg PO BID 10/03/17 [History Confirmed 10/03/17] sennosides 8.6 mg tablet (senna) 8.6 mg PO QPM 10/03/17 [History Confirmed 10/03/17] simvastatin 40 mg tablet 40 mg PO QPM 10/03/17 [History Confirmed 10/03/17] valsartan 80 mg tablet 80 mg PO QPM 10/03/17 [History Confirmed 10/03/17] doxycycline hyclate 100 mg tablet 100 mg PO BID #20 tabs 10/11/19 [Rx] levofloxacin 500 mg tablet (Levaquin) 500 mg PO DAILY #10 tabs 10/11/19 [Rx] metronidazole 500 mg tablet (Flagyl) 500 mg PO BID #20 tabs 10/11/19 [Rx] ondansetron HCl 4 mg tablet (Zofran) 4 mg PO Q8H PRN nausea and vomiting #12 tabs 10/11/19 [Rx] furosemide 20 mg tablet (Lasix) 20 mg PO QAM #5 tabs 12/08/20 [Rx] doxycycline monohydrate 100 mg capsule 100 mg PO BID #14 caps 09/23/22 [Rx] Visit Medications (administered) Generic Name Dose Route Start Last Admin Trade Name Freq PRN Reason Stop Dose Admin Insulin Human Regular 100 unit 101 mls @ 6 mls/hr 10/25/22 13:45 10/25/22 14:23 / Sodium Chloride IV 6 ml/hr TITRATE ANNE 6 mls/hr Administration Protocol Exam Vital Signs (past 8 hours): - 10/25/22 12:38 10/25/22 14:07 10/25/22 14:08 Temperature 97.4 F L Pulse Rate 115 H 118 H 116 H Respiratory Rate 22 Blood Pressure 128/58 L Pulse Oximetry 99 95 100 Oxygen Delivery Method Room Air 10/25/22 14:08 10/25/22 14:30 10/25/22 14:30 Temperature Pulse Rate 118 H Respiratory Rate 20 Blood Pressure 136/60 137/63 Pulse Oximetry 100 Oxygen Delivery Method 10/25/22 14:49 10/25/22 14:49 10/25/22 15:00 Temperature Pulse Rate 118 H Respiratory Rate 21 Blood Pressure 135/60 161/82 H Pulse Oximetry 99 Oxygen Delivery Method 10/25/22 15:00 10/25/22 15:16 10/25/22 15:24 Temperature Pulse Rate 119 H 121 H Respiratory Rate 21 Blood Pressure 186/70 H Pulse Oximetry 100 Oxygen Delivery Method 10/25/22 15:24 10/25/22 15:30 Temperature Pulse Rate 117 H Respiratory Rate 22 Blood Pressure 150/66 H Pulse Oximetry 99 Oxygen Delivery Method Room Air Oxygen Delivery Method Room Air Objective Labs 10/25/22 12:55 10/25/22 12:55 Labs: Laboratory Results - last 24 hr 10/25/22 10/25/22 10/25/22 12:35 12:35 12:35 WBC RBC Hgb Hct MCV MCH MCHC RDW Plt Count Neut % (Auto) Lymph % (Auto) [place] % (Auto) Eos % (Auto) Baso % (Auto) Neut # (Auto) Lymph # (Auto) [place] # (Auto) Eos # (Auto) Baso # (Auto) PT INR APTT VBG pH VBG pCO2 VBG pO2 VBG HCO3 VBG Total CO2 VBG O2 Saturation VBG Base Excess FiO2 Sodium Potassium Chloride Carbon Dioxide BUN Creatinine Estimated GFR BUN/Creatinine Ratio Glucose Hemoglobin A1c Cancelled Lactate Calcium Magnesium 2.2 Total Bilirubin AST ALT Alkaline Phosphatase Total Protein Albumin Globulin Albumin/Globulin Ratio Lipase Procalcitonin Ketones 10.42 H Chlamy pneumoniae PCR Adenovirus (PCR) B. pertussis DNA (PCR) B.parapertussis DNA PCR Coronavirus OC43 (PCR) Coronavirus HKU1 (PCR) Coronavirus 229E (PCR) SARS-CoV-2 (PCR) Coronavirus NL63 (PCR) Human Metapneumovir PCR Influenza A (RT-PCR) Influenza Type A (PCR) Influenza B (RT-PCR) Influenza Type B (PCR) M. pneumoniae (PCR) Parainfluenza 1 (PCR) Parainfluenza 2 (PCR) Parainfluenza 3 (PCR) Parainfluenza 4 (PCR) RSV (PCR) Entero/Rhino (PCR) 10/25/22 10/25/22 10/25/22 12:55 12:55 12:55 WBC 12.4 H RBC 6.16 H Hgb 16.3 H Hct 53.3 H MCV 86.5 MCH 26.4 MCHC 30.5 RDW 16.0 H Plt Count 329 Neut % (Auto) 75.0 Lymph % (Auto) 15.5 L [place]ains % (Auto) 9.0 Eos % (Auto) 0.0 L Baso % (Auto) 0.5 Neut # (Auto) 9300 H Lymph # (Auto) 1900 [place]ains # (Auto) 1100 H Eos # (Auto) 0 Baso # (Auto) 100 PT 11.2 INR 1.0 APTT 36 VBG pH VBG pCO2 VBG pO2 VBG HCO3 VBG Total CO2 VBG O2 Saturation VBG Base Excess FiO2 Sodium 135 L Potassium 5.1 Chloride 97 L Carbon Dioxide 7 L* BUN 26 H Creatinine 1.51 H Estimated GFR 39 L BUN/Creatinine Ratio 17.2 Glucose 698 H* Hemoglobin A1c Lactate Calcium 9.2 Magnesium Total Bilirubin 0.4 AST 33 ALT 21 Alkaline Phosphatase 133 H Total Protein 6.8 Albumin 4.1 Globulin 2.7 Albumin/Globulin Ratio 1.5 Lipase 53 Procalcitonin 0.15 Ketones Chlamy pneumoniae PCR Adenovirus (PCR) B. pertussis DNA (PCR) B.parapertussis DNA PCR Coronavirus OC43 (PCR) Coronavirus HKU1 (PCR) Coronavirus 229E (PCR) SARS-CoV-2 (PCR) Coronavirus NL63 (PCR) Human Metapneumovir PCR Influenza A (RT-PCR) Influenza Type A (PCR) Influenza B (RT-PCR) Influenza Type B (PCR) M. pneumoniae (PCR) Parainfluenza 1 (PCR) Parainfluenza 2 (PCR) Parainfluenza 3 (PCR) Parainfluenza 4 (PCR) RSV (PCR) Entero/Rhino (PCR) 10/25/22 10/25/22 10/25/22 12:55 12:55 13:57 WBC RBC Hgb Hct MCV MCH MCHC RDW Plt Count Neut % (Auto) Lymph % (Auto) [place] % (Auto) Eos % (Auto) Baso % (Auto) Neut # (Auto) Lymph # (Auto) [place] # (Auto) Eos # (Auto) Baso # (Auto) PT INR APTT VBG pH 7.08 L* VBG pCO2 29.0 L VBG pO2 36 VBG HCO3 9 L VBG Total CO2 9 L VBG O2 Saturation 48 L VBG Base Excess -22.0 L FiO2 20 Sodium Potassium Chloride Carbon Dioxide BUN Creatinine Estimated GFR BUN/Creatinine Ratio Glucose Hemoglobin A1c Lactate 3.1 H Calcium Magnesium Total Bilirubin AST ALT Alkaline Phosphatase Total Protein Albumin Globulin Albumin/Globulin Ratio Lipase Procalcitonin Ketones Chlamy pneumoniae PCR Adenovirus (PCR) B. pertussis DNA (PCR) B.parapertussis DNA PCR Coronavirus OC43 (PCR) Coronavirus HKU1 (PCR) Coronavirus 229E (PCR) SARS-CoV-2 (PCR) Negative Coronavirus NL63 (PCR) Human Metapneumovir PCR Influenza A (RT-PCR) Flu a negative Influenza Type A (PCR) Influenza B (RT-PCR) Flu b negative Influenza Type B (PCR) M. pneumoniae (PCR) Parainfluenza 1 (PCR) Parainfluenza 2 (PCR) Parainfluenza 3 (PCR) Parainfluenza 4 (PCR) RSV (PCR) Negative Entero/Rhino (PCR) 10/25/22 10/25/22 14:33 15:22 WBC RBC Hgb Hct MCV MCH MCHC RDW Plt Count Neut % (Auto) Lymph % (Auto) [place]ains % (Auto) Eos % (Auto) Baso % (Auto) Neut # (Auto) Lymph # (Auto) [place] # (Auto) Eos # (Auto) Baso # (Auto) PT INR APTT VBG pH VBG pCO2 VBG pO2 VBG HCO3 VBG Total CO2 VBG O2 Saturation VBG Base Excess FiO2 Sodium Potassium Chloride Carbon Dioxide BUN Creatinine Estimated GFR BUN/Creatinine Ratio Glucose Hemoglobin A1c Lactate 1.9 Calcium Magnesium Total Bilirubin AST ALT Alkaline Phosphatase Total Protein Albumin Globulin Albumin/Globulin Ratio Lipase Procalcitonin Ketones Chlamy pneumoniae PCR Not detected Adenovirus (PCR) Not detected B. pertussis DNA (PCR) Not detected B.parapertussis DNA PCR Not detected Coronavirus OC43 (PCR) Not detected Coronavirus HKU1 (PCR) Not detected Coronavirus 229E (PCR) Not detected SARS-CoV-2 (PCR) Not detected Coronavirus NL63 (PCR) Not detected Human Metapneumovir PCR Not detected Influenza A (RT-PCR) Influenza Type A (PCR) Not detected Influenza B (RT-PCR) Influenza Type B (PCR) Not detected M. pneumoniae (PCR) Not detected Parainfluenza 1 (PCR) Not detected Parainfluenza 2 (PCR) Not detected Parainfluenza 3 (PCR) Not detected Parainfluenza 4 (PCR) Not detected RSV (PCR) Not detected Entero/Rhino (PCR) Not detected Assessment & Plan Assessment & Plan narrative: patient seen chart/labs/imaging reviewed 62 year old female with PMHx of DM admitted to ICU with: Severe DKA acute renal failure dehydration volume depletion currently afebrilee, alert awake, HR 120s pH 7.0 co2 7 creat 1.5 wbc 12 plan -avoid/benzos -ivf -insulin drip -DKA protocol -monitor ins/outs -replace lytes prn -renal sono -does not appear infections can hold abx -check urine lytes -diet if can tolerated -gi/dvt ppx -please eva eICU if condition changes total ccm time 45 mins.
[2022-10-25 17:41] LABS: MRSA (Nasal) PCR Not Detected (Not Detect)
[2022-10-25 17:49] LABS: Glucose 519 mg/dL (80-110)
[2022-10-25 17:52] LABS: Appearance Urine UA CLEAR; Bilirubin Urine UA 2+ (NEGATIVE); Color Urine UA YELLOW; Glucose Urine UA 3+ g/dL (Negative); Ketones Urine UA 3+ (NEGATIVE); Leukocyte Esterase Urine UA NEGATIVE (NEGATIVE); Nitrite Urine UA NEGATIVE (Negative); Occult Blood Urine UA 1+ (Negative); Protein Urine UA 2+ (Negative); Urobilinogen Urine UA 0.2 E.U./dL (0.2)
[2022-10-25 17:54] LABS: pH Urine UA 5.5 (4.5-8.0)
[2022-10-25 18:11] LABS: Ictotest Urine Negative (Negative)
[2022-10-25 18:14] LABS: Bacteria Urine Few (2-10); Culture Indicated Urine Cult Not Indicated; RBC Urine 1-5/HPF (0-5/HPF); Squamous Epithelial Cell Urine 5-10 /HPF (0-5/HPF); WBC Urine 1-5/HPF (0-5/HPF)
[2022-10-25 18:56] LABS: BUN Creatinine Ratio 25.7 (6-22); Blood Urea Nitrogen 27 mg/dL (7-17); Calcium 8.1 mg/dL (8.4-10.2); Carbon Dioxide 13 mmol/L (22-32); Chloride 109 mmol/L (98-107); Estimated Glomerular Filt Rate > 60 mL/min (>60); Glucose 380 mg/dL (80-110); HEMOLYSIS 21 (0-50); Potassium 4.2 mmol/L (3.4-5.1); Sodium 140 mmol/L (137-145)
[2022-10-25] MEDS: INSULIN DRIP PREMIX 100 UNIT/100 ML PLAST..BAG 19.4 UNIT IV (19:20)
--- NOTE | 2022-10-25 19:57 | PM.ICURNDS ---
- Date Patient Seen: 10/25/22 Time Patient Seen: 19:58 :: This patient was seen via real time interactive two-way audiovisual telecommunication. Note: no acute events since admission recieved 6L of NS AG improved creat improved rios placed, appears to have adequate urine output suggest -change IVF to LR -continue DKA protocol
[2022-10-25] MEDS: LACTATED RINGERS 1,000 ML 150 ML IV (20:00)
--- NOTE | 2022-10-25 20:19 | PC.NURSE ---
Addendum entered by Nallely Fry R.N. 10/26/22 00:13: 0000- Patient has been medicated twice for nausea and vomiting. Patient allowed sips/chips only until no further n/v. Dr. Falcon called Chem results order recieved. Patient stable at this time. Original Note: 1999- Rios catheter placed. Patient had 600+ of clear yellow urine. Dr. Mcdaniel aware and fluid bolus stopped. LR at 150hr started per order. Pt rios cath placement was difficult as patient is very large and her meatus is deep and posterior. Will monitor.
[2022-10-25] MEDS: HEPARIN 5,000 UNIT/ML VIAL 5000 UNIT SUBCUT (21:00)
[2022-10-25 22:37] LABS: BUN Creatinine Ratio 28.8 (6-22); Blood Urea Nitrogen 23 mg/dL (7-17); Calcium 7.9 mg/dL (8.4-10.2); Carbon Dioxide 18 mmol/L (22-32); Chloride 111 mmol/L (98-107); Estimated Glomerular Filt Rate > 60 mL/min (>60); Glucose 173 mg/dL (80-110); HEMOLYSIS 38 (0-50); Potassium 4.2 mmol/L (3.4-5.1); Sodium 140 mmol/L (137-145)
--- NOTE | 2022-10-25 23:04 | PM.EVENT ---
Event Note Event Note (Rapid Response, Code, or fall): Notifed by RN Co2 18 and AG 10. Currently on insulin gtt 10 units/hr. Will transition to lantus 30 units and ISS. Dc insulin gtt 2 hours after initiation of lantus 30 units. D/w bedside RN.
[2022-10-25] MEDS: POTASSIUM CHLORIDE IN WATER 10 MEQ/100 ML PIGGYBACK 100 MEQ IV (23:12)
[2022-10-25] MEDS: INSULIN GLARGINE 100 UNIT/ML 3ML PEN 30 UNIT SUBCUT (23:12)
[2022-10-26] VITALS (33 sets, daily range): BP systolic 121–205; BP diastolic 50–96; PULSE 96–121; RESP 7–33; TEMP 36.3–37.6; O2SAT 94–99
[2022-10-26] MEDS: POTASSIUM CHLORIDE IN WATER 10 MEQ/100 ML PIGGYBACK 100 MEQ IV (00:33)
[2022-10-26] MEDS: LACTATED RINGERS 1,000 ML 150 ML IV ×2 (02:16→09:00)
[2022-10-26 03:09] LABS: Alanine Aminotransferase 20 IU/L (<35); Albumin 3.4 g/dL (3.5-5.0); Albumin Globulin Ratio 1.2 (1.0-2.8); Alkaline Phosphatase 108 U/L (38-126); Aspartate Aminotransferase 39 IU/L (14-36); BUN Creatinine Ratio 28.2 (6-22); Bilirubin Total 0.4 mg/dL (0.2-1.3); Blood Urea Nitrogen 20 mg/dL (7-17); Carbon Dioxide 18 mmol/L (22-32); Chloride 110 mmol/L (98-107); Estimated Glomerular Filt Rate > 60 mL/min (>60); Globulin 2.9 g/dL (1.7-4.1); Glucose 163 mg/dL (80-110); HEMOLYSIS 38 (0-50); Potassium 4.2 mmol/L (3.4-5.1); Sodium 140 mmol/L (137-145); Total Protein 6.3 g/dL (6.3-8.2)
[2022-10-26 03:17] LABS: Add Manual Diff / Slide Review NO; Basophils Absolute Auto 0 /uL (0-100); Basophils Percent Auto 0.3 % (0-2); Eosinophils Absolute Auto 0 /uL (0-450); Eosinophils Percent Auto 0.1 % (2-4); Hemoglobin 13.9 g/dL (12.0-16.0); Lymphocytes Absolute Auto 1100 /uL (1100-4500); Lymphocytes Percent Auto 15.4 % (25-40); Mean Corpuscular HGB Conc 32.2 % (30-36); Mean Corpuscular Hemoglobin 26.3 PG (26-34); Mean Corpuscular Volume 81.5 fL (80-100); Monocytes Absolute Auto 1100 /uL (0-900); Monocytes Percent Auto 15.7 % (3-14); Neutrophils Absolute Auto 4900 /uL (1500-7000); Neutrophils Percent Auto 68.5 % (50-75); Platelet Count 203 X10^3/uL (150-400); Red Blood Cell Count 5.28 X10^6/uL (4.0-5.2); Red Cell Distribution Width 15.3 % (11.6-14.8); White Blood Cell Count 7.2 X10^3/uL (4.5-11.0)
[2022-10-26 05:48] LABS: Labcorp Hemoglobin (Hb) A1c 11.6 % (4.8-5.6)
[2022-10-26] MEDS: INSULIN LISPRO 100 UNIT/ML 3ML VIAL SUBCUT ×3 (07:42→17:04)
[2022-10-26] MEDS: AMLODIPINE 5 MG TABLET 10 MG PO (08:43)
[2022-10-26] MEDS: HEPARIN 5,000 UNIT/ML VIAL 5000 UNIT SUBCUT ×2 (08:43→20:26)
[2022-10-26] MEDS: FAMOTIDINE 20 MG/2 ML VIAL IV ×2 (08:43→20:26)
[2022-10-26] MEDS: ASPIRIN EC 81 MG TABLET PO (12:17)
[2022-10-26] MEDS: METFORMIN XR 500 MG TABLET 1000 MG PO (12:18)
[2022-10-26] MEDS: VALSARTAN 80 MG TABLET PO (12:18)
--- NOTE | 2022-10-26 14:22 | P.PN_ITS ---
Exam Vital Signs (past 8 hours): - 10/26/22 08:00 10/26/22 06:30 10/26/22 07:00 Temperature Pulse Rate 113 H 116 H Respiratory Rate 33 H 20 Blood Pressure Pulse Oximetry 97 98 Oxygen Delivery Method Room Air 10/26/22 07:30 10/26/22 07:50 10/26/22 07:50 Temperature 97.8 F Pulse Rate 117 H 115 H Respiratory Rate 7 L 21 Blood Pressure 173/81 H Pulse Oximetry 97 97 Oxygen Delivery Method 10/26/22 08:00 10/26/22 08:00 10/26/22 08:30 Temperature Pulse Rate 111 H 115 H Respiratory Rate 19 20 Blood Pressure 177/83 H Pulse Oximetry 98 98 Oxygen Delivery Method 10/26/22 09:00 Temperature Pulse Rate 103 H Respiratory Rate 31 H Blood Pressure Pulse Oximetry 99 Oxygen Delivery Method Oxygen Delivery Method Room Air Oxygen Flow Rate 0 Narrative Exam Narrative: GEN: ill-appearing obese female HEENT: very dry mucous membranes, PERRL NECK: trachea midline, no JVD CV: regular rate and rhythm, no murmurs PULM: clear bilaterally ABD: soft, nontender, nondistended, no organomegaly EXT: warm and well perfused with no edema NEURO: awake, alert, oriented, no focal deficits Objective Labs 10/26/22 03:09 10/26/22 02:45 Labs: Laboratory Results - last 24 hr 10/25/22 10/25/22 10/25/22 12:35 12:35 12:35 WBC RBC Hgb Hct MCV MCH MCHC RDW Plt Count Neut % (Auto) Lymph % (Auto) [place] % (Auto) Eos % (Auto) Baso % (Auto) Neut # (Auto) Lymph # (Auto) [place] # (Auto) Eos # (Auto) Baso # (Auto) VBG pH VBG pCO2 VBG pO2 VBG HCO3 VBG Total CO2 VBG O2 Saturation VBG Base Excess FiO2 Sodium Potassium Chloride Carbon Dioxide BUN Creatinine Estimated GFR BUN/Creatinine Ratio Glucose Hemoglobin A1c Cancelled Hgb A1c (Ref Lab) Lactate Calcium Magnesium 2.2 Total Bilirubin AST ALT Alkaline Phosphatase Total Protein Albumin Globulin Albumin/Globulin Ratio Urine Color Urine Appearance Urine pH Ur Specific [place] Urine Protein Urine Glucose (UA) Urine Ketones Urine Occult Blood Urine Nitrate Urine Bilirubin Ur Bilirubin Confirm Urine Urobilinogen Ur Leukocyte Esterase Urine RBC Urine WBC Ur Squamous Epith Cells Urine Bacteria Urine Yeast Ur Culture Indicated? Nasal Screen MRSA (PCR) Ketones 10.42 H Chlamy pneumoniae PCR Adenovirus (PCR) B. pertussis DNA (PCR) B.parapertussis DNA PCR Coronavirus OC43 (PCR) Coronavirus HKU1 (PCR) Coronavirus 229E (PCR) SARS-CoV-2 (PCR) Coronavirus NL63 (PCR) Human Metapneumovir PCR Influenza Type A (PCR) Influenza Type B (PCR) M. pneumoniae (PCR) Parainfluenza 1 (PCR) Parainfluenza 2 (PCR) Parainfluenza 3 (PCR) Parainfluenza 4 (PCR) RSV (PCR) Entero/Rhino (PCR) 10/25/22 10/25/22 10/25/22 12:55 13:57 14:33 WBC RBC Hgb Hct MCV MCH MCHC RDW Plt Count Neut % (Auto) Lymph % (Auto) [place] % (Auto) Eos % (Auto) Baso % (Auto) Neut # (Auto) Lymph # (Auto) [place] # (Auto) Eos # (Auto) Baso # (Auto) VBG pH 7.08 L* VBG pCO2 29.0 L VBG pO2 36 VBG HCO3 9 L VBG Total CO2 9 L VBG O2 Saturation 48 L VBG Base Excess -22.0 L FiO2 20 Sodium Potassium Chloride Carbon Dioxide BUN Creatinine Estimated GFR BUN/Creatinine Ratio Glucose Hemoglobin A1c Hgb A1c (Ref Lab) 11.6 H Lactate Calcium Magnesium Total Bilirubin AST ALT Alkaline Phosphatase Total Protein Albumin Globulin Albumin/Globulin Ratio Urine Color Urine Appearance Urine pH Ur Specific [place] Urine Protein Urine Glucose (UA) Urine Ketones Urine Occult Blood Urine Nitrate Urine Bilirubin Ur Bilirubin Confirm Urine Urobilinogen Ur Leukocyte Esterase Urine RBC Urine WBC Ur Squamous Epith Cells Urine Bacteria Urine Yeast Ur Culture Indicated? Nasal Screen MRSA (PCR) Ketones Chlamy pneumoniae PCR Not detected Adenovirus (PCR) Not detected B. pertussis DNA (PCR) Not detected B.parapertussis DNA PCR Not detected Coronavirus OC43 (PCR) Not detected Coronavirus HKU1 (PCR) Not detected Coronavirus 229E (PCR) Not detected SARS-CoV-2 (PCR) Not detected Coronavirus NL63 (PCR) Not detected Human Metapneumovir PCR Not detected Influenza Type A (PCR) Not detected Influenza Type B (PCR) Not detected M. pneumoniae (PCR) Not detected Parainfluenza 1 (PCR) Not detected Parainfluenza 2 (PCR) Not detected Parainfluenza 3 (PCR) Not detected Parainfluenza 4 (PCR) Not detected RSV (PCR) Not detected Entero/Rhino (PCR) Not detected 10/25/22 10/25/22 10/25/22 15:22 15:43 17:24 WBC RBC Hgb Hct MCV MCH MCHC RDW Plt Count Neut % (Auto) Lymph % (Auto) [place] % (Auto) Eos % (Auto) Baso % (Auto) Neut # (Auto) Lymph # (Auto) [place] # (Auto) Eos # (Auto) Baso # (Auto) VBG pH VBG pCO2 VBG pO2 VBG HCO3 VBG Total CO2 VBG O2 Saturation VBG Base Excess FiO2 Sodium Potassium Chloride Carbon Dioxide BUN Creatinine Estimated GFR BUN/Creatinine Ratio Glucose 519 H* Hemoglobin A1c Hgb A1c (Ref Lab) Lactate 1.9 Calcium Magnesium Total Bilirubin AST ALT Alkaline Phosphatase Total Protein Albumin Globulin Albumin/Globulin Ratio Urine Color Urine Appearance Urine pH Ur Specific [place] Urine Protein Urine Glucose (UA) Urine Ketones Urine Occult Blood Urine Nitrate Urine Bilirubin Ur Bilirubin Confirm Urine Urobilinogen Ur Leukocyte Esterase Urine RBC Urine WBC Ur Squamous Epith Cells Urine Bacteria Urine Yeast Ur Culture Indicated? Nasal Screen MRSA (PCR) Not detected Ketones Chlamy pneumoniae PCR Adenovirus (PCR) B. pertussis DNA (PCR) B.parapertussis DNA PCR Coronavirus OC43 (PCR) Coronavirus HKU1 (PCR) Coronavirus 229E (PCR) SARS-CoV-2 (PCR) Coronavirus NL63 (PCR) Human Metapneumovir PCR Influenza Type A (PCR) Influenza Type B (PCR) M. pneumoniae (PCR) Parainfluenza 1 (PCR) Parainfluenza 2 (PCR) Parainfluenza 3 (PCR) Parainfluenza 4 (PCR) RSV (PCR) Entero/Rhino (PCR) 10/25/22 10/25/22 10/25/22 17:49 18:30 22:15 WBC RBC Hgb Hct MCV MCH MCHC RDW Plt Count Neut % (Auto) Lymph % (Auto) [place] % (Auto) Eos % (Auto) Baso % (Auto) Neut # (Auto) Lymph # (Auto) [place] # (Auto) Eos # (Auto) Baso # (Auto) VBG pH VBG pCO2 VBG pO2 VBG HCO3 VBG Total CO2 VBG O2 Saturation VBG Base Excess FiO2 Sodium 140 140 Potassium 4.2 4.2 Chloride 109 H 111 H Carbon Dioxide 13 L 18 L BUN 27 H 23 H Creatinine 1.05 H 0.80 Estimated GFR > 60 > 60 BUN/Creatinine Ratio 25.7 H 28.8 H Glucose 380 H D 173 H D Hemoglobin A1c Hgb A1c (Ref Lab) Lactate Calcium 8.1 L 7.9 L Magnesium Total Bilirubin AST ALT Alkaline Phosphatase Total Protein Albumin Globulin Albumin/Globulin Ratio Urine Color Yellow Urine Appearance Clear Urine pH 5.5 Ur Specific [place] 1.020 Urine Protein 2+ H Urine Glucose (UA) 3+ H Urine Ketones 3+ H Urine Occult Blood 1+ H Urine Nitrate Negative Urine Bilirubin 2+ H Ur Bilirubin Confirm Negative Urine Urobilinogen 0.2 Ur Leukocyte Esterase Negative Urine RBC 1-5/hpf Urine WBC 1-5/hpf Ur Squamous Epith Cells 5-10 /hpf H Urine Bacteria Few (2-10) H Urine Yeast 1-5/hpf H Ur Culture Indicated? Cult not indicated Nasal Screen MRSA (PCR) Ketones Chlamy pneumoniae PCR Adenovirus (PCR) B. pertussis DNA (PCR) B.parapertussis DNA PCR Coronavirus OC43 (PCR) Coronavirus HKU1 (PCR) Coronavirus 229E (PCR) SARS-CoV-2 (PCR) Coronavirus NL63 (PCR) Human Metapneumovir PCR Influenza Type A (PCR) Influenza Type B (PCR) M. pneumoniae (PCR) Parainfluenza 1 (PCR) Parainfluenza 2 (PCR) Parainfluenza 3 (PCR) Parainfluenza 4 (PCR) RSV (PCR) Entero/Rhino (PCR) 10/26/22 10/26/22 02:45 03:09 WBC 7.2 RBC 5.28 H Hgb 13.9 Hct 43.0 MCV 81.5 D MCH 26.3 MCHC 32.2 RDW 15.3 H Plt Count 203 Neut % (Auto) 68.5 Lymph % (Auto) 15.4 L [place] % (Auto) 15.7 H Eos % (Auto) 0.1 L Baso % (Auto) 0.3 Neut # (Auto) 4900 Lymph # (Auto) 1100 [place] # (Auto) 1100 H Eos # (Auto) 0 Baso # (Auto) 0 VBG pH VBG pCO2 VBG pO2 VBG HCO3 VBG Total CO2 VBG O2 Saturation VBG Base Excess FiO2 Sodium 140 Potassium 4.2 Chloride 110 H Carbon Dioxide 18 L BUN 20 H Creatinine 0.71 Estimated GFR > 60 BUN/Creatinine Ratio 28.2 H Glucose 163 H Hemoglobin A1c Hgb A1c (Ref Lab) Lactate Calcium 8.0 L Magnesium Total Bilirubin 0.4 AST 39 H ALT 20 Alkaline Phosphatase 108 Total Protein 6.3 Albumin 3.4 L Globulin 2.9 Albumin/Globulin Ratio 1.2 Urine Color Urine Appearance Urine pH Ur Specific [place] Urine Protein Urine Glucose (UA) Urine Ketones Urine Occult Blood Urine Nitrate Urine Bilirubin Ur Bilirubin Confirm Urine Urobilinogen Ur Leukocyte Esterase Urine RBC Urine WBC Ur Squamous Epith Cells Urine Bacteria Urine Yeast Ur Culture Indicated? Nasal Screen MRSA (PCR) Ketones Chlamy pneumoniae PCR Adenovirus (PCR) B. pertussis DNA (PCR) B.parapertussis DNA PCR Coronavirus OC43 (PCR) Coronavirus HKU1 (PCR) Coronavirus 229E (PCR) SARS-CoV-2 (PCR) Coronavirus NL63 (PCR) Human Metapneumovir PCR Influenza Type A (PCR) Influenza Type B (PCR) M. pneumoniae (PCR) Parainfluenza 1 (PCR) Parainfluenza 2 (PCR) Parainfluenza 3 (PCR) Parainfluenza 4 (PCR) RSV (PCR) Entero/Rhino (PCR) [facility] Medical History (Updated 10/25/22 @ 14:35 by Juliana Bhatti DO) Diabetes Neuropathy Social History household members: spouse Smoking Status: Never smoker Assessment & Plan Assessment & Plan narrative: # severe DKA, resolved -presented with NV, found to have BG of 698, bicarb 7, pH 7 and gap 31 -continue insulin drip -s/p 4L NS boluses -ketones positive at 10 -now off insulin drip and transitioned to lantus 30u nightly and SSI -tele-ICU consulted and appreciate recs -advance diet # PATY, resolved -rerenal due to NV -Cr 1.51 and baseline 0.5 -Cr now normal after IVF -monitor # hypertension -resume home valsartan #hyperlipidemia -continue statin # GERD -continue PPI # morbid obesity -BMI 40.7 # neuropathy -continue amitriptyline Code status is full code. DVT prophylaxis with heparin subcutaneous. Proxy is spouse Lemuel. Dispo: Home in 1-2 days. Quality VTE Deep Vein Thrombosis/Pulmonary Embolism Present on Admission: No
--- NOTE | 2022-10-26 14:37 | CM.DANOTE ---
Initial DCP Assessment Note Pt is a 62 yo female, resident of [place], admitted inpatient for management of DKA PCP: MEGAN Aguilar Provider Payer: Raffi Rodriguez Reviewed chart, pt discussed in multidisciplinary rounds this morning. Patient has been placed back on her home lantus, diet advanced and much improved. Patient likely to be able to discharge home over the next 24-48 hrs Met w/patient and spouse, introduced self and role. Patient appears tired but in good spirits, explains she lives in [place] with spouse, indp and active at baseline. Patient fearful about returning home via spouse's auto r/t the difficulty in getting downstairs and into their car to come to the ER. Patient/spouse live upstairs in a two story home. Suggested BLS if absolutely necessary to get patient up to her home, then discussed the likelihood of out of pocket cost associated with this transport Patient and spouse agreed if patient is not strong enough to go up their stairs BLS would be required and they were agreeable to out of pocket expense Otherwise, no needs from this CM team anticipated No barriers identified at this time to patient's safe discharge home w/family to assist; possible need for BLS r/t multiple stairs at home, close outpatient f/u recommended. need for PT eval (?) EBER Dawson Discharge Planning/Care Management CM Discharge Assessment Start: 10/26/22 14:34 Freq: Status: Active Protocol: Document 10/26/22 14:35 LIUDMILA (Rec: 10/26/22 14:37 LIUDMILA [id number]) Discharge Planning Assessment Assigned Liner Machine Operator EBER Clayton DPOA/Assigned Designee Name Lemuel Solano, spouse Contact Information [phone] Advance Directives? Yes Advance Directives on File Yes: per patient History Provided By Patient,Significant Other, Medical Record Prior Living Arrangements House Household Members spouse Type of transporation used prior to Drives own vehicle admit Independent with ADL's Yes Is patient alert and oriented? Yes Barriers to Discharge No Discharge Plan Home Transportation Arrangement BLS (?) Referrals Initiated None needed Whiteboard Updated in Patient Room with Yes name and ext. # of Liner Machine Operator
[2022-10-26] MEDS: INSULIN LISPRO 100 UNIT/ML 3ML VIAL 15 UNIT SUBCUT (17:42)
--- NOTE | 2022-10-26 18:44 | PC.NURSE ---
Pt transferred to floor care from ICU at 1500. Pt's BGs running around 250 all day. Notified MD Sharma - additional 15u short acting insulin ordered QAC. Increased long-acting insulin as well. Pt OOB from bed to wheelchair with SBA. Pt reports she is unable to get upstairs in her home - where the main living space is. PT/OT consult ordered by MD Sharma. This RN spent 1hr+ doing diabetes education, motivational interviewing, and empathic listening with patient. Pt states she is willing to go see an quarry supervisor. She states she eats mostly high protein, lower carb foods at home. She states she often forgets to give herself insulin before meals and either forgets entirely or gives herself insulin after meals. She is A&Ox4, though she often dozes off 1/2 way through a sentence and/or forgets and searches for words that she doesn't remember. This happened multiple times during our conversation today. D/c'ed IV fluids as pt drinking adequately. Pt reports still having little appetite. Ate approximately 1/3 of her dinner. Ramiro tuttle. Will continue to monitor.
[2022-10-26] MEDS: ATORVASTATIN 20 MG TABLET PO (20:26)
[2022-10-26] MEDS: MELATONIN 3 MG TABLET 6 MG PO (20:26)
[2022-10-26] MEDS: AMITRIPTYLINE 25 MG TABLET PO (20:26)
[2022-10-26] MEDS: INSULIN GLARGINE 100 UNIT/ML 3ML PEN 30 UNIT SUBCUT (20:27)
[2022-10-27] VITALS: BP 145/62; PULSE 92; RESP 18; TEMP 36.6; O2SAT 98
[2022-10-27 05:05] LABS: Add Manual Diff / Slide Review NO; Basophils Absolute Auto 0 /uL (0-100); Basophils Percent Auto 0.6 % (0-2); Eosinophils Absolute Auto 100 /uL (0-450); Eosinophils Percent Auto 1.5 % (2-4); Hematocrit 41.1 % (36-46); Hemoglobin 13.7 g/dL (12.0-16.0); Lymphocytes Absolute Auto 1500 /uL (1100-4500); Lymphocytes Percent Auto 27.1 % (25-40); Mean Corpuscular HGB Conc 33.2 % (30-36); Mean Corpuscular Hemoglobin 26.8 PG (26-34); Mean Corpuscular Volume 80.7 fL (80-100); Monocytes Absolute Auto 500 /uL (0-900); Monocytes Percent Auto 9.2 % (3-14); Neutrophils Absolute Auto 3500 /uL (1500-7000); Neutrophils Percent Auto 61.6 % (50-75); Platelet Count 181 X10^3/uL (150-400); Red Blood Cell Count 5.09 X10^6/uL (4.0-5.2); Red Cell Distribution Width 15.9 % (11.6-14.8); White Blood Cell Count 5.6 X10^3/uL (4.5-11.0)
[2022-10-27 05:10] LABS: Alanine Aminotransferase 16 IU/L (<35); Albumin 2.9 g/dL (3.5-5.0); Albumin Globulin Ratio 1.2 (1.0-2.8); Alkaline Phosphatase 93 U/L (38-126); Aspartate Aminotransferase 24 IU/L (14-36); BUN Creatinine Ratio 20.4 (6-22); Bilirubin Total 0.5 mg/dL (0.2-1.3); Blood Urea Nitrogen 11 mg/dL (7-17); Carbon Dioxide 20 mmol/L (22-32); Chloride 108 mmol/L (98-107); Estimated Glomerular Filt Rate > 60 mL/min (>60); Globulin 2.5 g/dL (1.7-4.1); Glucose 229 mg/dL (80-110); HEMOLYSIS < 15 (0-50); Potassium 3.7 mmol/L (3.4-5.1); Sodium 137 mmol/L (137-145); Total Protein 5.4 g/dL (6.3-8.2)
[2022-10-27] MEDS: INSULIN LISPRO 100 UNIT/ML 3ML VIAL 15 UNIT SUBCUT ×2 (08:27→12:06)
[2022-10-27] MEDS: INSULIN LISPRO 100 UNIT/ML 3ML VIAL SUBCUT ×2 (08:27→12:06)
[2022-10-27] MEDS: VALSARTAN 80 MG TABLET PO (08:30)
[2022-10-27] MEDS: METFORMIN XR 500 MG TABLET 1000 MG PO (08:30)
[2022-10-27] MEDS: ASPIRIN EC 81 MG TABLET PO (08:30)
[2022-10-27] MEDS: HEPARIN 5,000 UNIT/ML VIAL 5000 UNIT SUBCUT (08:30)
[2022-10-27] MEDS: AMLODIPINE 5 MG TABLET 10 MG PO (08:30)
[2022-10-27] MEDS: FAMOTIDINE 20 MG/2 ML VIAL IV (08:30)
[2022-10-27 09:12] VITALS: BP 131/63; PULSE 100; RESP 17; TEMP 35.7; O2SAT 98
[2022-10-27] MEDS: INSULIN GLARGINE 100 UNIT/ML 3ML PEN 30 UNIT SUBCUT (09:21)
--- NOTE | 2022-10-27 12:25 | PT.OIE ---
Current Diagnoses Type 2 diabetes mellitus with ketoacidosis without coma (10/25/22) Past Medical History (Last Reviewed 10/25/22 @ 14:27 by Juliana Bhatti DO) Diabetes Neuropathy Visit Care Team Role Provider Type Jeff MEGAN Provider Primary Care Provider Non-Staff Specialty: Medical Address: Phone: Email: Trish Langford MD Other Providers Physician Specialty: Medical Address: Phone: Fax: Email: Ana María Tenorio MD Other Providers Physician Specialty: Medical Address: Phone: Fax: Email: Ramez Mcdaniel MD Other Providers Physician Specialty: Medical Address: [address] [place], [address] Phone: Fax: Email: Miguelina Syed MD Other Providers Physician Specialty: Internal Medicine Address: Phone: Fax: Email: Pa Pérez MD Other Providers Physician Specialty: Medical Address: Phone: Fax: Email: Marbella Hunter MD Other Providers Physician Specialty: Anesthesiology Internal Medicine Address: [address] [place] [address], [phone] Fax: Email: [email or web address] Nataliya Ochoa MD Other Providers Physician Specialty: Internal Medicine Address: [address] [place], [address] Phone: Fax: Email: [email or web address] David Shaver MD Other Providers Physician Specialty: Internal Medicine Address: Phone: Fax: Email: Eric Slaughter MD Other Providers Physician Specialty: Medical Address: Phone: Fax: Email: Jay Trujillo MD Other Providers Physician Specialty: Internal Medicine Address: [address] [place], [address] Phone: Fax: Email: Kamron Hernández MD Other Providers Physician Specialty: Medical Address: [address] [place] [address], [address] Phone: Fax: Email: Randy Martínez MD Other Providers Physician Specialty: Medical Address: Phone: Fax: Email: Jaimee Romero Other Providers Physician Specialty: Medical Address: Phone: Fax: Email: Alayna Jade MD Other Providers Physician Specialty: Internal Medicine Address: Phone: Fax: Email: Juliana Bhatti DO Emergency Provider Physician Referring Provider Specialty: Emergency Medicine Address: [address] [place] [address], [address] Email: [email or web address] Chas Sharma DO Admit Provider Physician Attending Provider Specialty: Internal Medicine Address: [address] [place] [address], [phone] Email: [email or web address]
[2022-10-27 12:26] VITALS: BP 121/64; PULSE 106; RESP 18; TEMP 36.4; O2SAT 97
--- NOTE | 2022-10-27 13:40 | PM.DS.1 ---
History of Present Illness History of Present Illness Date Patient Seen: 10/27/22 Time Patient Seen: 13:40 Chief complaint: N/V T-2 Narrative: Per admitting provider, Alida Solano is a 62-year-old female with past medical history of type 2 diabetes, neuropathy, hypertension, hyperlipidemia, GERD, and morbid obesity who presents with acute NV and found to be in DKA. Patient states she began feeling poorly the past few days. Had diarrhea yesterday and then began vomiting shortly after non-stop. She stopped taking her insulin because she was feeling so bad. She came to the ED where she was found to be in DKA with BG of 698, pH of 7, bicarb of 7 and gap of 31. She reports having DKA once back in 2007. She denies cough, sore throat, rhinorrhea or SOB. No dysuria. She was given 2L boluses and started on insulin drip with DKA protocol. 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 Routine Comment: Consulting Provider: [employer] Reason for consultation: Manager Family services 10/26/22 08:20 Consult to Dietitian, Adult Routine Comment: Reason For Exam: A1c 11% 10/26/22 15:46 Consult to Occupational Therapy Evaluate & Treat Comment: Physician Instructions: Evaluate and treat Consult to Physical Therapy Evaluate & Treat Comment: Physician Instructions: Evaluate and Treat Discharge provider: Francisco Beauchamp DO Summary Hospital Course Discharge Diagnosis: # severe DKA, resolved # PATY, resolved # hypertension #hyperlipidemia # GERD # morbid obesity # neuropathy Hospital Course: This is a 62 year old female with IDDM who was admitted with severe DKA. She improved with insulin infusion and was transitioned to Lantus therapy in the hospital. Patient reports running out of Toujeo last week and having difficulty obtaining from mail pharmacy. Home dosing was sent to her pharmacy at the time of discharge. 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 Patient was weak, but felt improved and did not wish to work with stairs with physical therapy on the day of discharge. She was tolerating a diet without symptoms at the time of discharge. No infectious etiologies for DKA were found. Recommend continued follow up with primary care provider for ongoing therapy of diabetes. Time Spent with Patient Time spent: Greater than 30 minutes Exam Vital Signs (past 8 hours): - 10/27/22 09:12 10/27/22 12:26 Temperature 96.2 F L 97.6 F Pulse Rate 100 H 106 H Respiratory Rate 17 18 Blood Pressure 131/63 121/64 Pulse Oximetry 98 97 Oxygen Flow Rate 0 0 Oxygen Delivery Method Room Air Oxygen Flow Rate 0 Narrative Exam Narrative: GEN: ill-appearing obese female HEENT: very dry mucous membranes, PERRL NECK: trachea midline, no JVD CV: regular rate and rhythm, no murmurs PULM: clear bilaterally ABD: soft, nontender, nondistended, no organomegaly EXT: warm and well perfused with no edema NEURO: awake, alert, oriented, no focal deficits Objective Labs 10/27/22 04:35 10/27/22 04:35 Labs: Laboratory Results - last 24 hr 10/27/22 10/27/22 04:35 04:35 WBC 5.6 RBC 5.09 Hgb 13.7 Hct 41.1 MCV 80.7 MCH 26.8 MCHC 33.2 RDW 15.9 H Plt Count 181 Neut % (Auto) 61.6 Lymph % (Auto) 27.1 [place] % (Auto) 9.2 Eos % (Auto) 1.5 L Baso % (Auto) 0.6 Neut # (Auto) 3500 Lymph # (Auto) 1500 [place] # (Auto) 500 Eos # (Auto) 100 Baso # (Auto) 0 Sodium 137 Potassium 3.7 Chloride 108 H Carbon Dioxide 20 L BUN 11 Creatinine 0.54 Estimated GFR > 60 BUN/Creatinine Ratio 20.4 Glucose 229 H Calcium 8.0 L Total Bilirubin 0.5 AST 24 ALT 16 Alkaline Phosphatase 93 Total Protein 5.4 L Albumin 2.9 L Globulin 2.5 Albumin/Globulin Ratio 1.2 ON LICENSE OF [facility] Medical History (Updated 10/25/22 @ 14:35 by Juliana Bhatti DO) Diabetes Neuropathy Social History household members: spouse Smoking Status: Never smoker Discharge Plan Discharge Plan Patient Disposition: Home Provider Discharge Comment: You were admitted to the hospital with DKA after running out of long acting insulin. This was sent to your local pharmacy, do not hesitate to contact the hospital with any issues regarding insulin though a temporary lantus prescription was sent to get you through this time without Gary given prior authorization need. Discharge orders & Medications Prescriptions: New insulin glargine [Lantus Solostar U-100 Insulin] 100 unit/mL (3 mL) insulin pen 60 unit SUBCUT BID 30 Days Qty: 30 0RF Continued valsartan 80 mg tablet 80 mg PO QPM aspirin 81 mg tablet,delayed release (DR/EC) 81 mg PO QPM simvastatin 40 mg tablet 40 mg PO QPM amitriptyline 25 mg tablet 25 mg PO QPM insulin aspart U-100 100 unit/mL solution 1 dose Sub-Q DIRECTED omeprazole 20 mg capsule,delayed release(DR/EC) 20 mg PO BID metformin 500 mg tablet extended release 24 hr 1,000 mg PO QPM sennosides [senna] 8.6 mg Tablet 8.6 mg PO QPM omega 8-msg-ddn-fish oil [Fish Oil] 1,000 mg (120 mg-180 mg) Capsule 1 cap PO DAILY Vitamin C 1 tab PO DAILY ondansetron HCl [Zofran] 4 mg tablet 4 mg PO Q8H PRN (Reason: nausea and vomiting) Qty: 12 0RF doxycycline hyclate 100 mg tablet 100 mg PO BID Qty: 20 0RF Patient Comments: pt unsure which doxycycline she's using Changed insulin glargine U-300 conc 300 unit/mL (1.5 mL) insulin pen 66 unit Sub-Q QPM 30 Days Qty: 6.6 0RF Discontinued metronidazole [Flagyl] 500 mg tablet 500 mg PO BID Qty: 20 0RF Patient Comments: pt unsure if shes taking doxycycline monohydrate 100 mg capsule 100 mg PO BID Qty: 14 0RF Patient Comments: pt unsure which doxycycline she's using Follow up/Referrals: ProviderJeff [Primary Care Provider] - Diet/Activity/Treatments Diet: Diet as Tolerated and Carb-consistent/Diabetic Activity: As tolerated Visit Report/Discharge Packet Instructions: DI for Diabetic Ketoacidosis Stand Alone Forms: Patient Portal/API, Stroke Signs & Symptoms Discharge Data Primary Care Provider: ProviderJeff Quality VTE Deep Vein Thrombosis/Pulmonary Embolism Present on Admission: No
--- NOTE | 2022-10-27 14:10 | PT.IIE ---
Current Diagnoses Type 2 diabetes mellitus with ketoacidosis without coma (10/25/22) Medical History (Last Reviewed 10/25/22 @ 14:27 by Juliana Bhatti DO) Diabetes Neuropathy Physical Therapy Inpatient Evaluation/Re-Eval M1 PT/OT-IP Prior Functional Status Start: 10/27/22 12:10 Freq: NEEDED Status: Active Protocol: Document 10/27/22 12:10 [facility] (Rec: 10/27/22 12:25 [facility] [id number]) Medical Review Prior Functional Status Medical History Reviewed Yes Diet/Fluid Consistency Regular Mobility and Gait pt has a cane at home and uses when needed, at times she uses it on her stairs Social History Household Members spouse Living Arrangements House Number of Stairs To Enter/Railing? 2 stairs to enter and then main living is up upstairs. There is a rail on the upper half of the staircase but not on the lower half. pt notes she often uses her cane on the lower half Home Equipment Straight Cane M2 PT-IP Current Condition Start: 10/27/22 12:10 Freq: NEEDED Status: Active Protocol: Document 10/27/22 12:10 [facility] (Rec: 10/27/22 12:25 [facility] [id number]) Physical Therapy Current Condition Current Condition Evaluation Date 10/27/22 Treatment Diagnosis DKA diabetic keto acidosis Onset Date 10/26/22 M3 PT-IP Subjective Start: 10/27/22 12:10 Freq: NEEDED Status: Active Protocol: Document 10/27/22 12:10 [facility] (Rec: 10/27/22 12:25 [facility] [id number]) Subjective Physical Therapy Visit Type Type Initial Evaluation Visit Start Time 11:35 Visit Stop Time 12:05 Total Visit Minutes 30 Physical Therapy Visit Comments Patient Comments pt reports she is feeling much better today, yesterday she didn't think she would be able to go home and make it up her stairs but today she is feeling like she could Patient Goals pt's goals are to return home Therapy Pain Assessment Pain When Pain Assessed At Rest Pain Present Pain Present Denied Pain M4 PT-IP Mobility and Gait Start: 10/27/22 12:10 Freq: NEEDED Status: Active Protocol: Document 10/27/22 12:10 [facility] (Rec: 10/27/22 12:25 [facility] [id number]) PT-Bed Mobility Assessment Rolling Type of Rolling Roll to Right Level of Assist Minimal Assistance Supine to Sit Supine to Sit Minimal Assistance Sit to Supine Sit to Supine Contact Guard Assistance Scooting Scooting to Edge of Bed Standby Assistance PT-Transfer Assessment Sit to and From Stand Sit to and from Stand Contact Guard Assistance Equipment Transfer Assistive Device Gait Belt,Front Wheeled Walker Orthotic/Prosthetic Devices or Brace: No Transfers Transfer Destination Bed Transfer Technique ambulation in room Transfer Ability Level of Assist Contact Guard Assistance Comments Mobility Comments pt required min A for upper body to transfer to sitting at the edge of the bed, once seated she demonstrated good balance and was able to transfer to standing with FWW with CGA. She ambualted in room with fww and CGA Gait Assessment Gait Gait Assistance Required: Contact Guard Assist Distance (Feet) 15 Assistive Devices Assistive Device Gait Belt,Front Wheeled Walker Gait Deviations General Gait Pattern Wide Based Gait Factors Limiting Gait Function Factors Limiting Gait Function Decreased Activity Tolerance, Decreased Strength Comments Gait Comments pt ambulated in room with fww with CGA. She did well with ambulation with the fww. She does feel like she can do her stairs but felt fatigued after walking in room and did not wish to attempt stairs now . I offered to wheel her down to the stairs in a WC but she wanted to wait to attempt stairs. She demonstrated good balance and tolerance for gait with fww PT-Balance Assessment Sitting Balance and Reactions Static Sitting Balance Ability Good Dynamic Sitting Balance Ability Good Standing Balance and Reactions Static Standing Balance Ability Good Dynamic Standing Balance Ability Good Device Used fww M5 PT-IP Objective Assessments Start: 10/27/22 12:10 Freq: NEEDED Status: Active Protocol: Document 10/27/22 12:10 [facility] (Rec: 10/27/22 12:25 [facility] [id number]) Orientation Orientation/Cognition Level of Alertness Alert Safety Awareness Understands Safety Issues Memory Description No Deficits Noted Gross Range of Motion Upper Extremity ROM Assessment Within Functional Limits Lower Extremity ROM Assessment Within Functional Limits Strength Upper Extremity Strength Assessment Within Functional Limits Lower Extremity Strength Assessment Bilaterally Impaired Comments Strength Comments generalized LE Weakness and uses a cane at home for assistance, pt has history of LE neuropathy Coordination Assessment Gross Coordination Gross Coordination WNL Muscle Tone Muscle Tone WNL Yes M6 PT-IP Treatment Start: 10/27/22 12:10 Freq: NEEDED Status: Active Protocol: Document 10/27/22 12:10 [facility] (Rec: 10/27/22 12:25 [facility] [id number]) Physical Therapy Treatment Exercises Exercises Ankle Pumps Education Education Provided Safety M7 PT-IP Assessment and Plan Start: 10/27/22 12:10 Freq: NEEDED Status: Active Protocol: Document 10/27/22 12:10 [facility] (Rec: 10/27/22 12:25 [facility] [id number]) PT Summary Assessment and Plan Potential Rehabilitation Potential Excellent Status of Condition at Evaluation Stable Summary Impairments Strength,Balance,Bed Mobility, Transfers,Gait,Activity Tolerance Assessment Summary 62 year old female admitted with DKA diabetic ketoacidosis , feeling much better today and feeling that she can go home. She was able to ambulate in room approx 15 feet with CGA. Pt needs to be able to go up 2 sets of stairs to get to her main living area. I offered to wheel to to the stairs however she notes she felt to fatigued after bed mobility and ambulation and she wished to wait for stairs. Pt feels she can do her stairs now where as yesterday she did not think she would be able to . Pt has a cane at home but may benefit from a FWW for increased support until she is stronger. Goals Bed Mobility Goal Standby Assistance Transfer Goal Standby Assistance Gait Goal Contact Guard Assistance Gait Distance 25 Other Goals pt is able to ascend and descend stairs x 2 sets Days to Meet Goals 5 Frequency of Treatment Frequency Of Treatment Twice a Day Treatment Plan Physical Therapy Treatment Plan Bed Mobility Training,Transfer Training,Gait Training, Therapeutic Exercise Other Recommendations and Next Treatment work with patient on stair Focus training next visit Weight Bearing Status Weight Bearing Status Full Weight Bearing Recommendations To Nursing Amount of Assist Needed 1 Person Assist Discharge Recommendations PT Discharge Recommendations Home,Home with Assistance Equipment Needed for Home Before pt may benefit from a FWW for Discharge home until she is feeling increased strength
--- NOTE | 2022-10-27 14:24 | PT.IIE ---
Current Diagnoses Type 2 diabetes mellitus with ketoacidosis without coma (10/25/22) Medical History (Last Reviewed 10/25/22 @ 14:27 by Juliana Bhatti DO) Diabetes Neuropathy Physical Therapy Inpatient Evaluation/Re-Eval M1 PT/OT-IP Prior Functional Status Start: 10/27/22 12:10 Freq: NEEDED Status: Active Protocol: Document 10/27/22 12:10 [facility] (Rec: 10/27/22 12:25 [facility] [id number]) Medical Review Prior Functional Status Medical History Reviewed Yes Diet/Fluid Consistency Regular Mobility and Gait pt has a cane at home and uses when needed, at times she uses it on her stairs Social History Household Members spouse Living Arrangements House Number of Stairs To Enter/Railing? 2 stairs to enter and then main living is up upstairs. There is a rail on the upper half of the staircase but not on the lower half. pt notes she often uses her cane on the lower half Home Equipment Straight Cane M2 PT-IP Current Condition Start: 10/27/22 12:10 Freq: NEEDED Status: Active Protocol: Document 10/27/22 12:10 [facility] (Rec: 10/27/22 12:25 [facility] [id number]) Physical Therapy Current Condition Current Condition Evaluation Date 10/27/22 Treatment Diagnosis DKA diabetic keto acidosis Onset Date 10/26/22 M3 PT-IP Subjective Start: 10/27/22 12:10 Freq: NEEDED Status: Active Protocol: Document 10/27/22 12:10 [facility] (Rec: 10/27/22 12:25 [facility] [id number]) Subjective Physical Therapy Visit Type Type Initial Evaluation Visit Start Time 11:35 Visit Stop Time 12:05 Total Visit Minutes 30 Physical Therapy Visit Comments Patient Comments pt reports she is feeling much better today, yesterday she didn't think she would be able to go home and make it up her stairs but today she is feeling like she could Patient Goals pt's goals are to return home Therapy Pain Assessment Pain When Pain Assessed At Rest Pain Present Pain Present Denied Pain M4 PT-IP Mobility and Gait Start: 10/27/22 12:10 Freq: NEEDED Status: Active Protocol: Document 10/27/22 12:10 [facility] (Rec: 10/27/22 12:25 [facility] [id number]) PT-Bed Mobility Assessment Rolling Type of Rolling Roll to Right Level of Assist Minimal Assistance Supine to Sit Supine to Sit Minimal Assistance Sit to Supine Sit to Supine Contact Guard Assistance Scooting Scooting to Edge of Bed Standby Assistance PT-Transfer Assessment Sit to and From Stand Sit to and from Stand Contact Guard Assistance Equipment Transfer Assistive Device Gait Belt,Front Wheeled Walker Orthotic/Prosthetic Devices or Brace: No Transfers Transfer Destination Bed Transfer Technique ambulation in room Transfer Ability Level of Assist Contact Guard Assistance Comments Mobility Comments pt required min A for upper body to transfer to sitting at the edge of the bed, once seated she demonstrated good balance and was able to transfer to standing with FWW with CGA. She ambualted in room with fww and CGA Gait Assessment Gait Gait Assistance Required: Contact Guard Assist Distance (Feet) 15 Assistive Devices Assistive Device Gait Belt,Front Wheeled Walker Gait Deviations General Gait Pattern Wide Based Gait Factors Limiting Gait Function Factors Limiting Gait Function Decreased Activity Tolerance, Decreased Strength Comments Gait Comments pt ambulated in room with fww with CGA. She did well with ambulation with the fww. She does feel like she can do her stairs but felt fatigued after walking in room and did not wish to attempt stairs now . I offered to wheel her down to the stairs in a WC but she wanted to wait to attempt stairs. She demonstrated good balance and tolerance for gait with fww PT-Balance Assessment Sitting Balance and Reactions Static Sitting Balance Ability Good Dynamic Sitting Balance Ability Good Standing Balance and Reactions Static Standing Balance Ability Good Dynamic Standing Balance Ability Good Device Used fww M5 PT-IP Objective Assessments Start: 10/27/22 12:10 Freq: NEEDED Status: Active Protocol: Document 10/27/22 12:10 [facility] (Rec: 10/27/22 12:25 [facility] [id number]) Orientation Orientation/Cognition Level of Alertness Alert Safety Awareness Understands Safety Issues Memory Description No Deficits Noted Gross Range of Motion Upper Extremity ROM Assessment Within Functional Limits Lower Extremity ROM Assessment Within Functional Limits Strength Upper Extremity Strength Assessment Within Functional Limits Lower Extremity Strength Assessment Bilaterally Impaired Comments Strength Comments generalized LE Weakness and uses a cane at home for assistance, pt has history of LE neuropathy Coordination Assessment Gross Coordination Gross Coordination WNL Muscle Tone Muscle Tone WNL Yes M6 PT-IP Treatment Start: 10/27/22 12:10 Freq: NEEDED Status: Active Protocol: Document 10/27/22 12:10 [facility] (Rec: 10/27/22 12:25 [facility] [id number]) Physical Therapy Treatment Exercises Exercises Ankle Pumps Education Education Provided Safety M7 PT-IP Assessment and Plan Start: 10/27/22 12:10 Freq: NEEDED Status: Active Protocol: Document 10/27/22 12:10 [facility] (Rec: 10/27/22 12:25 [facility] [id number]) PT Summary Assessment and Plan Potential Rehabilitation Potential Excellent Status of Condition at Evaluation Stable Summary Impairments Strength,Balance,Bed Mobility, Transfers,Gait,Activity Tolerance Assessment Summary 62 year old female admitted with DKA diabetic ketoacidosis , feeling much better today and feeling that she can go home. She was able to ambulate in room approx 15 feet with CGA. Pt needs to be able to go up 2 sets of stairs to get to her main living area. I offered to wheel to to the stairs however she notes she felt to fatigued after bed mobility and ambulation and she wished to wait for stairs. Pt feels she can do her stairs now where as yesterday she did not think she would be able to . Pt has a cane at home but may benefit from a FWW for increased support until she is stronger. Goals Bed Mobility Goal Standby Assistance Transfer Goal Standby Assistance Gait Goal Contact Guard Assistance Gait Distance 25 Other Goals pt is able to ascend and descend stairs x 2 sets Days to Meet Goals 5 Frequency of Treatment Frequency Of Treatment Twice a Day Treatment Plan Physical Therapy Treatment Plan Bed Mobility Training,Transfer Training,Gait Training, Therapeutic Exercise Other Recommendations and Next Treatment work with patient on stair Focus training next visit Weight Bearing Status Weight Bearing Status Full Weight Bearing Recommendations To Nursing Amount of Assist Needed 1 Person Assist Discharge Recommendations PT Discharge Recommendations Home,Home with Assistance Equipment Needed for Home Before pt may benefit from a FWW for Discharge home until she is feeling increased strength
--- NOTE | 2022-10-27 14:39 | PT-IP ANOTE ---
Pt refused stair training, reporting that her will bring a mattress downstairs so she does not need to navigate stairs. Anticipates d/c this PM, states no further needs.
== END 2022-10-27 16:15 | disposition home or self-care (01) | DRG 638 ==
LOC: ED 14:35 → AC 14:40 → ICU 15:01 → AC 10-26 13:26
PROVIDERS: Admitting Provider Student in an Organized Health Care Education/Training Program; Emergency Provider Emergency Medicine; Referring Provider Emergency Medicine; Visit Provider Student in an Organized Health Care Education/Training Program
DX: E11.10 Type 2 diabetes mellitus with ketoacidosis without coma (principal); Z68.41 Body mass index [BMI] 40.0-44.9, adult; E78.5 Hyperlipidemia, unspecified; E66.01 Morbid (severe) obesity due to excess calories; K21.9 Gastro-esophageal reflux disease without esophagitis; E11.40 Type 2 diabetes mellitus with diabetic neuropathy, unspecified; E86.0 Dehydration; I10 Essential (primary) hypertension; Z79.84 Long term (current) use of oral hypoglycemic drugs; Z79.4 Long term (current) use of insulin
CPT/HCPCS: 0241U; 36415; 71045; 80048; 80053; 81001; 82009; 82805; 82947; 82962; 83036; 83605; 83690; 83735; 84145; 85025; 85610; 85730; 87040; 87633; 87797; 93005; 96361; 96365; 96375; 97116; 97161; 99284; 99285; J1644; J1815; J2405

== ENCOUNTER 2023-07-21 18:08 | Observation (INO) | payer OTHER, SELFPAY ==
[2022-10-25 14:50] VITALS: BMI 40.7
[2023-07-21] VITALS (16 sets, daily range): BP systolic 175–193; BP diastolic 72–85; PULSE 65–84; RESP 16–25; TEMP 36.6; O2SAT 93–99; BMI 49.3
--- NOTE | 2023-07-21 18:36 | DI.RAD.S_ITS ---
PROCEDURE: XR CHEST 1V INDICATIONS: Possible stroke TECHNIQUE: One view of the chest was acquired. COMPARISON: [facility], CR, XR CHEST 1V, 10/25/2022, 12:57. FINDINGS: Surgical changes and devices: None. Lungs and pleura: Lungs are clear. No pleural effusions or pneumothorax. Mediastinum: Mediastinal contours appear normal. Heart size is normal. Bones and chest wall: No suspicious bony lesions. Overlying soft tissues appear unremarkable. IMPRESSION: No acute cardiopulmonary pathology. Dictated by: Fred Morataya M.D. on 07/21/2023 at 19:03 Approved by: Fred Morataya M.D. on 07/21/2023 at 19:03
--- NOTE | 2023-07-21 18:36 | DI.CT.S_ITS ---
PROCEDURE: CT HEAD/BRAIN WO CON INDICATIONS: left leg weakness, LKW 1200 TECHNIQUE: Noncontrast 4.5 mm thick angled axial sections acquired from the foramen magnum to the vertex, with coronal and sagittal reformats. For radiation dose reduction, the following was used: automated exposure control, adjustment of mA and/or kV according to patient size. COMPARISON: None. FINDINGS: Image quality: Diagnostic. CSF spaces: Basal cisterns are patent. No extra-axial fluid collections. The ventricles are symmetric in size and shape. Brain: No intracranial bleeds or masses. There is cerebral volume loss for age, with resultant ventricular and sulcal prominence. There are periventricular and deep white matter chronic small vessel ischemic changes. There is intracranial internal carotid artery atherosclerosis. Skull and face: Calvarium and visualized facial bones appear intact, without suspicious lesions. Sinuses: Visualized sinuses and mastoids are clear. IMPRESSION: No acute intracranial pathology. Age related volume loss and mild white matter chronic small vessel ischemic changes. Dictated by: Fred Morataya M.D. on 07/21/2023 at 19:00 Approved by: Fred Morataya M.D. on 07/21/2023 at 19:01
[2023-07-21 18:46] LABS: Add Manual Diff / Slide Review NO; Basophils Absolute Auto 100 /uL (0-100); Basophils Percent Auto 1.4 % (0-2); Eosinophils Absolute Auto 100 /uL (0-450); Hematocrit 44.4 % (36-46); Hemoglobin 14.3 g/dL (12.0-16.0); Lymphocytes Absolute Auto 1900 /uL (1100-4500); Lymphocytes Percent Auto 26.9 % (25-40); Mean Corpuscular HGB Conc 32.3 % (30-36); Mean Corpuscular Hemoglobin 25.7 PG (26-34); Mean Corpuscular Volume 79.7 fL (80-100); Monocytes Absolute Auto 700 /uL (0-900); Monocytes Percent Auto 9.6 % (3-14); Neutrophils Absolute Auto 4200 /uL (1500-7000); Neutrophils Percent Auto 60.1 % (50-75); Platelet Count 205 X10^3/uL (150-400); Red Blood Cell Count 5.57 X10^6/uL (4.0-5.2); Red Cell Distribution Width 15.7 % (11.6-14.8)
[2023-07-21 18:49] LABS: INR 0.9 (0.9-1.3)
[2023-07-21 18:51] LABS: PTT Partial Thromboplastin Tim 35 SECONDS (25.1-36.5)
[2023-07-21 18:52] LABS: Alanine Aminotransferase 26 IU/L (<35); Albumin 3.7 g/dL (3.5-5.0); Albumin Globulin Ratio 1.4 (1.0-2.8); Alkaline Phosphatase 103 U/L (38-126); Aspartate Aminotransferase 24 IU/L (14-36); BUN Creatinine Ratio 29.8 (6-22); Bilirubin Total 0.5 mg/dL (0.2-1.3); Blood Urea Nitrogen 17 mg/dL (7-17); Calcium 8.9 mg/dL (8.4-10.2); Carbon Dioxide 32 mmol/L (22-32); Chloride 103 mmol/L (98-107); Creatine Kinase 36 U/L (30-135); Estimated Glomerular Filt Rate > 60 mL/min (>60); Globulin 2.7 g/dL (1.7-4.1); Glucose 271 mg/dL (80-110); HEMOLYSIS 17 (0-50); Magnesium 1.9 mg/dL (1.6-2.3); Potassium 4.3 mmol/L (3.4-5.1); Sodium 136 mmol/L (137-145); Total Protein 6.4 g/dL (6.3-8.2)
--- NOTE | 2023-07-21 18:58 | DI.CT.S_ITS ---
PROCEDURE: CT ANGIO HEAD AND NECK INDICATIONS: LLE, L HAND WEAKNESS TECHNIQUE: After the administration of intravenous contrast, 1 mm thick sections acquired from the aortic arch through the [place]. 3-dimensional tdspsvt-pcaspkwur-quvrbxckgk (MIP) and/or volume rendering reformats were acquired of the central intracranial vasculature and neck separately. For radiation dose reduction, the following was used: automated exposure control, adjustment of mA and/or kV according to patient size. COMPARISON: None. FINDINGS: Image quality: Diagnostic. BRAIN: CSF spaces: Ventricles are normal in size and shape. Basal cisterns are patent. No extra-axial fluid collections. Brain: No significant abnormality of the brain can be seen. No area of abnormal intracranial enhancement is seen. Skull and face: Calvarium and facial bones appear intact, without suspicious lesions. Orbits appear normal. Sinuses: Sinuses and mastoids are clear. HEAD CT ANGIOGRAPHY: Anterior circulation: Intracranial internal carotid arteries are normal in size and flow. The flow within the paired anterior cerebral arteries is normal and symmetric. The flow within the middle cerebral arteries is normal and symmetric. The anterior communicating artery is seen. No aneurysms are seen. Posterior circulation: Visualized portions of the vertebral arteries demonstrate normal caliber, and join to form a normal appearing basilar artery. Flow within the posterior cerebral arteries is normal and symmetric. No aneurysms are seen. NECK CT ANGIOGRAPHY: Carotid system: The great vessels demonstrate a conventional anatomy as they arise from the aortic arch. The origins of the common carotid arteries appear patent. The common carotid arteries demonstrate normal caliber and courses. The bifurcation regions are both widely patent. The internal carotid arteries demonstrate normal calibers and courses. Posterior circulation: The origins of the vertebral arteries both appear widely patent. The more superior extracranial portions of both vertebral arteries also demonstrate normal courses and calibers. They join to form a normal appearing basilar artery. Soft tissues: Enlarged thyroid lobe with heterogeneous contrast enhancement is seen. Bones: No suspicious bony lesions. Degenerative disc disease throughout cervical spine is noted more notably at C5-6 and C6-7 levels. IMPRESSION: 1. No area of abnormal intracranial enhancement. 2. No hemodynamically significant stenosis or aneurysm is seen in the intracranial circulation. 3. No hemodynamically significant stenosis is seen in bilateral neck arteries. 4. Incidentally noted is enlarged thyroid gland with heterogeneous enhancement which may indicate nodular goiter. Outpatient thyroid ultrasound can be done for follow-up. Any quantitative measurements of stenosis were performed using NASCET criteria. Dictated by: Fred Morataya M.D. on 07/21/2023 at 19:55 Approved by: Fred Morataya M.D. on 07/21/2023 at 19:57
--- NOTE | 2023-07-21 19:00 | ED.NEUROSD ---
HPI - Neuro Symptoms/Deficit General Chief Complaint: Neuro Symptoms/Deficit Stated Complaint: thinks shes had a stroke Time Seen by Provider: 07/21/23 18:16 Source: patient and family Mode of arrival: Wheelchair History of Present Illness HPI Narrative: 62-year-old female with history of hypertension, insulin dependent diabetes, hyperlipidemia presents by private vehicle from home for possible stroke. 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 After her students left she told her to bring her to the emergency department for evaluation. Last noted normal at approximately noon today. Denies numbness, speech difficulties, headache. On Anticoagulants: No Related Data Home Medications Medication Instructions Recorded Confirmed aspirin 81 mg tablet,delayed 81 mg PO QPM 10/03/17 07/21/23 release omega 0-nms-lpa-fish oil 1,000 mg 1 cap PO DAILY 10/03/17 07/21/23 (120 mg-180 mg) capsule (Fish Oil) amitriptyline 25 mg tablet 25 mg PO ONCE PM 07/21/23 07/21/23 metformin 500 mg tablet,extended 500 mg PO BID 07/21/23 07/21/23 release 24 hr omeprazole 20 mg capsule,delayed 40 mg PO QAM 07/21/23 07/22/23 release simvastatin 40 mg tablet 40 mg PO ONCE PM 07/21/23 07/21/23 valsartan 80 mg tablet 80 mg PO DAILY 07/21/23 07/21/23 insulin aspart U-100 100 unit/mL 30 unit SUBCUT QAM DM2 07/22/23 07/22/23 subcutaneous solution (Novolog U-100 Insulin aspart) insulin glargine U-300 conc 300 70 unit SUBCUT QAM 07/22/23 07/22/23 unit/mL (3 mL) subcutaneous pen (Toujeo Max U-300 SoloStar) Allergies Allergy/AdvReac Type Severity Reaction Status Date / Time Iodinated Contrast Media Allergy Severe Difficulty Verified 10/25/22 12:44 Breathing codeine [CODEINE] AdvReac Unknown NAUSEA/VOMI Verified 10/11/19 10:46 TTING Review of Systems Review of Systems Narrative: See HPI Hematologic/Lymphatic On Anticoagulants: No Patient History Medical History (Updated 07/21/23 @ 23:57 by Gayle Rodriguez MD) Diabetes Neuropathy Social History household members: spouse Smoking Status: Never smoker Smoking Status: Never smoker alcohol intake frequency: holidays/special occasions only Substance Use Type: does not use Exam Initial Vital Signs Initial Vital Signs: Vital Signs Temperature 97.9 F 07/21/23 18:31 Pulse Rate 69 07/21/23 18:31 Respiratory Rate 18 07/21/23 18:31 Blood Pressure 193/85 H 07/21/23 18:31 Pulse Oximetry 99 07/21/23 18:31 Oxygen Delivery Method Room Air 07/21/23 18:31 Const: Awake, alert, no acute distress Cardiac: regular rate, regular rhythm RESP: unlabored, clear bilaterally, no wheezing GI: Soft, nontender, nondistended, no rebound, no guarding MSK: Atraumatic, full range of motion, pulses equal Skin: Warm, Dry, intact, no rashes Neuro: AO x3, CN II-XII grossly intact, slight drift LLE, no ataxia Course Orders Ordered: ED Orders 07/21/23 18:34 Complete Blood Count AUTO DIFF Stat Comprehensive Metabolic Panel Stat Magnesium Stat PTT Partial Thromboplastin Mal Stat Prothrombin Time INR Stat Troponin & CK Cardiac Panel Stat 07/21/23 18:36 CT head/brain wo con Stat XR chest 1V Stat EKG-12 Lead Stat 07/21/23 18:58 CT angio head and neck Stat 07/21/23 20:45 Urinalysis and Microscopic Stat Urine Drug Screen, Rapid Stat Ondansetron HCl (Ondansetron 4 Mg/2 Ml Inj) 4 mg IV NOW PRN PRN Reason: Nausea And Vomiting Ondansetron HCl (Ondansetron 4 Mg Odt) 4 mg SL NOW PRN PRN Reason: Nausea And Vomiting Discontinued Medications Aspirin (Aspirin Ec 325 Mg Tablet) 325 mg PO NOW ONE Stop: 07/21/23 22:47 Last Admin: 07/21/23 23:24 Dose: 325 mg Documented By: PATRICIA Clopidogrel Bisulfate (Clopidogrel 75 Mg Tablet) 75 mg PO NOW ONE Stop: 07/21/23 22:47 Last Admin: 07/21/23 23:24 Dose: 75 mg Documented By: PATRICIA Diphenhydramine HCl (Diphenhydramine 50 Mg/Ml Vial) 50 mg IV NOW ONE Stop: 07/21/23 19:01 Last Admin: 07/21/23 19:12 Dose: Not Given Documented By: DEEJAY Lorazepam (Lorazepam 2 Mg/Ml Inj) 2 mg IV NOW ONE Stop: 07/21/23 19:08 Last Admin: 07/21/23 19:16 Dose: 2 mg Documented By: PATRICIA Methylprednisolone (Methylprednisolone 125 Mg/2 Ml Vial) 125 mg IV NOW ONE Stop: 07/21/23 19:01 Last Admin: 07/21/23 19:12 Dose: Not Given Documented By: DEEJAY Vital Signs Vital signs: Vital Signs - 8 hr 07/21/23 18:31 07/21/23 19:02 07/21/23 19:10 Temperature 97.9 F Pulse Rate 69 65 67 Respiratory Rate 18 25 H 21 Blood Pressure 193/85 H Pulse Oximetry 99 95 Oxygen Delivery Method Room Air Room Air 07/21/23 19:10 07/21/23 19:38 07/21/23 20:00 Temperature Pulse Rate 75 83 Respiratory Rate 19 Blood Pressure 186/72 H Pulse Oximetry 94 93 Oxygen Delivery Method Room Air Room Air 07/21/23 20:30 07/21/23 21:00 07/21/23 21:30 Temperature Pulse Rate 81 80 82 Respiratory Rate 18 21 20 Blood Pressure Pulse Oximetry 94 97 96 Oxygen Delivery Method Room Air Room Air Room Air 07/21/23 22:00 07/21/23 22:14 07/21/23 22:30 Temperature Pulse Rate 84 82 84 Respiratory Rate Blood Pressure Pulse Oximetry 98 95 Oxygen Delivery Method Room Air Room Air 07/21/23 22:31 07/21/23 22:31 07/21/23 23:00 Temperature Pulse Rate 83 82 Respiratory Rate 17 Blood Pressure 175/74 H Pulse Oximetry 98 96 Oxygen Delivery Method 07/21/23 23:01 07/21/23 23:01 07/21/23 23:30 Temperature Pulse Rate 79 81 Respiratory Rate 17 Blood Pressure 187/75 H Pulse Oximetry 96 97 Oxygen Delivery Method Room Air 07/21/23 23:31 Temperature Pulse Rate 80 Respiratory Rate 16 Blood Pressure Pulse Oximetry 97 Oxygen Delivery Method Room Air MDM - Neuro Symptoms/Deficit Lab Data 07/21/23 18:34 07/21/23 18:34 Labs: Lab Results 07/21/23 07/21/2324 Range/Units 18:34 20:45 20:45 WBC 7.0 (4.5-11.0) X10^3/uL RBC 5.57 H (4.0-5.2) X10^6/uL Hgb 14.3 (12.0-16.0) g/dL Hct 44.4 (36-46) % MCV 79.7 L (80-100) fL MCH 25.7 L (26-34) PG MCHC 32.3 (30-36) % RDW 15.7 H (11.6-14.8) % Plt Count 205 (150-400) X10^3/uL Neut % (Auto) 60.1 (50-75) % Lymph % (Auto) 26.9 (25-40) % [place] % (Auto) 9.6 (3-14) % Eos % (Auto) 2.0 (2-4) % Baso % (Auto) 1.4 (0-2) % Neut # (Auto) 4200 (3021-2022) /uL Lymph # (Auto) 1900 (1174-5316) /uL [place] # (Auto) 700 (0-900) /uL Eos # (Auto) 100 (0-450) /uL Baso # (Auto) 100 (0-100) /uL PT 10.0 (9.4-12.5) SECONDS INR 0.9 (0.9-1.3) APTT 35 (25.1-36.5) SECONDS Sodium 136 L (137-145) mmol/L Potassium 4.3 (3.4-5.1) mmol/L Chloride 103 (98-107) mmol/L Carbon Dioxide 32 (22-32) mmol/L BUN 17 (7-17) mg/dL Creatinine 0.57 (0.52-1.04) mg/dL Estimated GFR > 60 (>60) mL/min BUN/Creatinine Ratio 29.8 H (6-22) Glucose 271 H (80-110) mg/dL Calcium 8.9 (8.4-10.2) mg/dL Magnesium 1.9 (1.6-2.3) mg/dL Total Bilirubin 0.5 (0.2-1.3) mg/dL AST 24 (14-36) IU/L ALT 26 (<35) IU/L Alkaline Phosphatase 103 (38-126) U/L Total Creatine Kinase 36 (30-135) U/L Troponin I < 0.012 (0.01-0.034) ng/mL Total Protein 6.4 (6.3-8.2) g/dL Albumin 3.7 (3.5-5.0) g/dL Globulin 2.7 (1.7-4.1) g/dL Albumin/Globulin Ratio 1.4 (1.0-2.8) Urine Color Yellow Urine Appearance Clear Urine pH 5.5 Normal (4.5-8.0) Ur Specific [place] 1.020 (1.000-1.035) Urine Protein 3+ H (Negative) Urine Glucose (UA) 3+ H (Negative) g/dL Urine Ketones Trace H (NEGATIVE) Urine Occult Blood Trace-intact (Negative) Urine Nitrate Negative (Negative) Urine Bilirubin Negative (NEGATIVE) Urine Urobilinogen 0.2 (0.2) E.U./dL Ur Leukocyte Esterase Negative (NEGATIVE) Urine RBC 0-1/hpf (0-5/HPF) Urine WBC 1-5/hpf (0-5/HPF) Ur Squamous Epith Cells 10-30 /hpf H (0-5/HPF) Urine Bacteria Many (>30) H (None) Urine Yeast 0-1/hpf (None) Ur Culture Indicated? Cult not indicated Vol Urine Centrifuged 10ml (spun) U Opiates 300ng/mL cut Negative (Negative) Ur Oxycodone Screen Negative (Negative) Urine Methadone Screen Negative (Negative) Ur Barbiturates Screen Negative (Negative) U Tricyclic Antidepress Negative (Negative) Ur Phencyclidine Scrn Negative (Negative) Ur Amphetamines Screen Negative (Negative) U Methamphetamines Scrn Negative (Negative) Ur MDMA Scrn (Ecstasy) Negative (Negative) U Benzodiazepines Scrn Negative (Negative) Urine Cocaine Screen Negative (Negative) U Marijuana (THC) Screen Negative (Negative) Urine Specific [place] Normal (Normal) Ur Creatinine Normal (Normal) Point of Care Testing Glucose POC 283 MDM Narrative Medical decision making narrative: Left lower and left upper extremity weakness, last known well 12:00 p.m. Patient has very slight weakness of LLE, however L hand clumsiness not obvious on exam, however patient did notice this while trying to play piano. Outside of TPA or TNK window. Noncontrast CT brain is not show any acute abnormalities. CT angio of the head and neck also shows no acute stenosis or filling defects. Patient has had elevated blood pressures, however since she was here due to suspected stroke we will allow for permissive hypertension. She was given full-dose aspirin and a dose of Plavix. MRI came to evaluate the patient, she unfortunately does not fit into our MRI machine. Patient reassessed, she states that the left lower extremity weakness has resolved but she still feels that her left-hand is clumsy compared to her right hand. We will admit patient for repeat head CT in the morning as well as echocardiogram and stroke evaluation. Discharge Plan Departure Patient Disposition: Admitted as Observation Clinical Impression: Acute left-sided weakness Admit Date/Time: 07/21/23 23:57 Admit Provider: Thuan Perkins
[2023-07-21 19:04] LABS: Troponin I < 0.012 ng/mL (0.01-0.034)
[2023-07-21] MEDS: LORazepam 2 MG/ML INJ IV (19:16)
[2023-07-21 20:53] LABS: Appearance Urine UA CLEAR; Bilirubin Urine UA NEGATIVE (NEGATIVE); Color Urine UA YELLOW; Glucose Urine UA 3+ g/dL (Negative); Ketones Urine UA TRACE (NEGATIVE); Leukocyte Esterase Urine UA NEGATIVE (NEGATIVE); Nitrite Urine UA NEGATIVE (Negative); Occult Blood Urine UA TRACE-INTACT (Negative); Protein Urine UA 3+ (Negative); Urobilinogen Urine UA 0.2 E.U./dL (0.2)
[2023-07-21 20:54] LABS: pH Urine UA 5.5 (4.5-8.0)
[2023-07-21 20:56] LABS: UR Morphine/Opiate cutoff 300 Negative (Negative); Ur Creatinine Normal (Normal); Ur Specific Gravity Normal (Normal); Urine Amphetamines Negative (Negative); Urine Barbiturates Negative (Negative); Urine Benzodiazepines Negative (Negative); Urine Cocaine Negative (Negative); Urine MDMA Negative (Negative); Urine Methadone Negative (Negative); Urine Methamphetamines Negative (Negative); Urine Oxycodone Negative (Negative); Urine Phencyclidine Negative (Negative); Urine Tetrahydrocannabinol Negative (Negative); Urine Tricyclic Antidepressant Negative (Negative); Urine pH Normal (Normal)
[2023-07-21 21:00] LABS: Bacteria Urine Many (>30); Culture Indicated Urine Cult Not Indicated; RBC Urine 0-1/HPF (0-5/HPF); Squamous Epithelial Cell Urine 10-30 /HPF (0-5/HPF); Urine Volume 10mL (spun); WBC Urine 1-5/HPF (0-5/HPF)
[2023-07-21] MEDS: ASPIRIN EC 325 MG TABLET PO (23:24)
[2023-07-21] MEDS: CLOPIDOGREL 75 MG TABLET PO (23:24)
[2023-07-22] VITALS (9 sets, daily range): BP systolic 147–186; BP diastolic 69–95; PULSE 84–100; RESP 17–24; TEMP 35.6–36.2; O2SAT 93–97; BMI 49.3
--- NOTE | 2023-07-22 02:14 | DI.ECHO.S_ITS ---
[place] +---------+ Hospital +---------+ : : [address] : : : : [id number] : : : : Phone: [phone] Echocardiogram Report + :Name: ARUN POLANCO Study Date: 07/22/2023 Height: 67 in : :[facility] ReadingLocation: Weight: 315 lb : : Gender: Female BSA: 2.5 m2 : :: 1960 Age: 62 yrs BP: 156/69 mmHg: :Reason For Study: SUSPECTED STROKE : :Ordering Physician: YONAS MANE, : :RK TOVAR Performed By: Milly Bernardo : :Referring: RK RACHEL MD : + Interpretation Summary The left ventricle is normal in size. Left ventricular systolic function appears normal without focal wall motion abnormalities. The ejection fraction is estimated to be 60-65%. Diastolic parameters suggest a relaxation abnormality of the left ventricle, consistent with probable normal filling pressures. The right ventricle is normal in size and function. The left atrial size is normal. Injection of contrast documented no interatrial shunt. There is no significant valvular heart disease. The aortic root is normal size. Procedure: A two-dimensional transthoracic echocardiogram with color flow and Doppler was performed. The study quality was technically difficult. Comparison is made with the echocardiogram of 02/22/2021. The patient was in sinus rhythm with heart rates between 83-92 bpm during the exam. Left Ventricle: The left ventricle is normal in size. Left ventricular wall thickness is borderline increased. Left ventricular systolic function appears normal without focal wall motion abnormalities. The ejection fraction is estimated to be 60-65%. Diastolic parameters suggest a relaxation abnormality of the left ventricle, consistent with probable normal filling pressures. Right Ventricle: The right ventricle is normal in size and function. Atria: The left atrial size is normal. Right atrial size is normal. Injection of contrast documented no interatrial shunt. Mitral Valve: The mitral valve leaflets appear mildly thickened, but open well. There is mild mitral annular calcification. There is trace mitral regurgitation. Aortic Valve: The aortic valve opens well. There is no aortic valve stenosis. No aortic regurgitation is present. Tricuspid Valve: The tricuspid valve is normal in structure and function. There is trace tricuspid regurgitation. Pulmonic Valve: The pulmonic valve leaflets are thin and pliable; valve motion is normal. There is no pulmonic valvular regurgitation. There is no significant valvular heart disease. Great Vessels: The aortic root is normal size. The dimensions of the ascending aorta are normal. The IVC is of normal diameter and collapses greater than 50% with a sniff. This suggests a low right atrial pressure of 3 mm Hg. Pericardium/ Pleura There is no pericardial effusion. There is no pleural effusion. MMode/2D Measurements & Calculations LVIDd: 4.3 cm LVOT diam: 2.0 cm LVIDs: 2.9 cm Ao root diam: 3.1 cm FS: 31.7 % asc Aorta Diam: 3.1 cm IVSd: 1.1 cm LVPWd: 1.2 cm LV boles. diameter/BSA (cm/m^2): 1.8 LV sys. diameter/BSA (cm/m^2): 1.2 LA A2 area: 20.0 cm2 RA long axis: 4.9 cm LA A4 area: 17.3 cm2 RA area: 14.9 cm2 LA length (vol): 5.2 cm RA vol: 38.5 ml LA vol: 56.8 ml RA : 15.7 ml/m2 LA vol index: 23.1 ml/m2 IVC diam: 1.5 cm RVD1 (basal): 3.2 cm TAPSE: 2.1 cm Doppler Measurements & Calculations Ao V2 max: 145.2 cm/sec LVOT Max Surya: 115.1 cm/sec Ao V2 mean: 109.5 cm/sec LV V1 max P.3 mmHg Ao max P.4 mmHg LV V1 VTI: 24.0 cm Ao mean P.1 mmHg FANY(I,D): 2.4 cm2 Ao V2 VTI: 30.5 cm FANY(V,D): 2.5 cm2 sev ratio: 0.79 FANY indexed to BSA (cm^2/m^2): 0.99 MV E max surya: 83.3 cm/sec PA V2 max: 137.3 cm/sec MV A max surya: 95.6 cm/sec PA V2 mean: 100.9 cm/sec MV E/A: 0.87 PA mean P.6 mmHg Med Peak E' Surya: 7.3 cm/sec PA Accel Time: 0.13 sec E/E' med: 11.4 Lat Peak E' Surya: 7.9 cm/sec E/E' lat: 10.5 E/e' average: 10.9 MV dec time: 0.20 sec MVA(VTI): 2.5 cm2 MV V2 mean: 84.7 cm/sec SV(LVOT): 74.1 ml MV mean P.2 mmHg MV V2 VTI: 29.7 cm Reading Physician:02:29 PM
[2023-07-22] MEDS: AMITRIPTYLINE 25 MG TABLET PO (03:20)
--- NOTE | 2023-07-22 03:28 | P.HP_ITS ---
History of Present Illness History of Present Illness Date Patient Seen: 07/22/23 Chief complaint: thinks shes had a stroke Narrative: 62-year-old female with past medical history of type 2 diabetes, diabetic neuropathy, hypertension, hyperlipidemia, GERD, morbid obesity, hospitalization in 2022 for DKA, presented to ED 6 hours after she felt her left arm and hand to be clumsy and left leg weaker. 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 Upon arrival to ED her symptoms fluctuated, initially her leg weakness resolved then reappeared. Her left hand still does not feel right. Initial workup showing hypertension, unremarkable CTH and CTA head and neck. Can't fit into the MRI. Given ASA and Plavix. Placed in observation on telemetry with TIA vs CVA for repeat CTH, echocardiogram, PT, OT and ST evaluation. [facility] Medical History (Updated 07/22/23 @ 03:48 by Thuan Ryan MD) HLD (hyperlipidemia) HTN (hypertension) Diabetes Neuropathy Social History household members: spouse Smoking Status: Never smoker Meds Home Medications and Allergies Home Medications Medication Instructions Recorded Confirmed Type aspirin 81 mg tablet,delayed 81 mg PO QPM 10/03/17 07/21/23 History release omega 5-weg-oem-fish oil 1,000 mg 1 cap PO DAILY 10/03/17 07/21/23 History (120 mg-180 mg) capsule (Fish Oil) amitriptyline 25 mg tablet 25 mg PO ONCE PM 07/21/23 07/21/23 History metformin 500 mg tablet,extended 500 mg PO BID 07/21/23 07/21/23 History release 24 hr omeprazole 20 mg capsule,delayed 40 mg PO QAM 07/21/23 07/22/23 History release simvastatin 40 mg tablet 40 mg PO ONCE PM 07/21/23 07/21/23 History valsartan 80 mg tablet 80 mg PO DAILY 07/21/23 07/21/23 History insulin aspart U-100 100 unit/mL 30 unit SUBCUT QAM DM2 07/22/23 07/22/23 History subcutaneous solution (Novolog U-100 Insulin aspart) insulin glargine U-300 conc 300 70 unit SUBCUT QAM 07/22/23 07/22/23 History unit/mL (3 mL) subcutaneous pen (Toujeo Max U-300 SoloStar) Allergies Allergy/AdvReac Type Severity Reaction Status Date / Time Iodinated Contrast Media Allergy Severe Difficulty Verified 10/25/22 12:44 Breathing codeine [CODEINE] AdvReac Unknown NAUSEA/VOMI Verified 10/11/19 10:46 TTING Review of Systems Constitutional Comments: w/o sweats, fever, chills Eyes Comments: w/o recent vision changes Cardiovascular Comments: w/o palpitations or chest pain Respiratory Comments: w/o shortness of breath or cough Gastrointestinal Comments: w/o complaints Genitourinary Comments: w/o voiding difficulties or dysuria Neurologic Comments: chronic diabetic peripheral neuropathy with episodic neuropathic pain and numbness of feet Exam Vital Signs (past 8 hours): - 07/21/23 19:38 07/21/23 20:00 07/21/23 20:30 Temperature Pulse Rate 75 83 81 Respiratory Rate 19 18 Blood Pressure Pulse Oximetry 94 93 94 Oxygen Delivery Method Room Air Room Air Room Air Oxygen Flow Rate 07/21/23 21:00 07/21/23 21:30 07/21/23 22:00 Temperature Pulse Rate 80 82 84 Respiratory Rate 21 20 Blood Pressure Pulse Oximetry 97 96 Oxygen Delivery Method Room Air Room Air Oxygen Flow Rate 07/21/23 22:14 07/21/23 22:30 07/21/23 22:31 Temperature Pulse Rate 82 84 Respiratory Rate Blood Pressure 175/74 H Pulse Oximetry 98 95 Oxygen Delivery Method Room Air Room Air Oxygen Flow Rate 07/21/23 22:31 07/21/23 23:00 07/21/23 23:01 Temperature Pulse Rate 83 82 Respiratory Rate 17 Blood Pressure 187/75 H Pulse Oximetry 98 96 Oxygen Delivery Method Oxygen Flow Rate 07/21/23 23:01 07/21/23 23:30 07/21/23 23:31 Temperature Pulse Rate 79 81 80 Respiratory Rate 17 16 Blood Pressure Pulse Oximetry 96 97 97 Oxygen Delivery Method Room Air Room Air Oxygen Flow Rate 07/22/23 00:00 07/22/23 00:01 07/22/23 00:01 Temperature Pulse Rate 84 84 Respiratory Rate 18 Blood Pressure 185/73 H Pulse Oximetry 97 97 Oxygen Delivery Method Room Air Oxygen Flow Rate 07/22/23 00:01 07/22/23 00:30 07/22/23 00:31 Temperature Pulse Rate 91 H 89 Respiratory Rate 17 Blood Pressure Pulse Oximetry 94 97 Oxygen Delivery Method Room Air Room Air Oxygen Flow Rate 07/22/23 00:31 07/22/23 01:25 Temperature 96.8 F L Pulse Rate 85 Respiratory Rate 24 Blood Pressure 167/71 H 168/77 H Pulse Oximetry 96 Oxygen Delivery Method Oxygen Flow Rate 0 Oxygen Delivery Method Room Air Oxygen Flow Rate 0 Const Other: in no distress, laying in bed, at bedside HENMT Other: not congested, oral crowding Eyes Other: eomi, reactive, equal pupils Neck Other: short, supple Resp Other: normal respiratory effort Cardio Other: RRR GI Other: obese abdomen Skin Other: w/o rashes Neuro Other: Lt distal arm minimal weakness, 4+/5, impaired coordination and fine motor movements Extrem Other: w/o swelling Psych Other: appropriate mood, lucid Objective Labs 07/21/23 18:34 07/21/23 18:34 Labs: Laboratory Results - last 24 hr 07/21/23 07/21/23 07/21/23 18:34 20:45 20:45 WBC 7.0 RBC 5.57 H Hgb 14.3 Hct 44.4 MCV 79.7 L MCH 25.7 L MCHC 32.3 RDW 15.7 H Plt Count 205 Neut % (Auto) 60.1 Lymph % (Auto) 26.9 [place] % (Auto) 9.6 Eos % (Auto) 2.0 Baso % (Auto) 1.4 Neut # (Auto) 4200 Lymph # (Auto) 1900 [place] # (Auto) 700 Eos # (Auto) 100 Baso # (Auto) 100 PT 10.0 INR 0.9 APTT 35 Sodium 136 L Potassium 4.3 Chloride 103 Carbon Dioxide 32 BUN 17 Creatinine 0.57 Estimated GFR > 60 BUN/Creatinine Ratio 29.8 H Glucose 271 H Calcium 8.9 Magnesium 1.9 Total Bilirubin 0.5 AST 24 ALT 26 Alkaline Phosphatase 103 Total Creatine Kinase 36 Troponin I < 0.012 Total Protein 6.4 Albumin 3.7 Globulin 2.7 Albumin/Globulin Ratio 1.4 Urine Color Yellow Urine Appearance Clear Urine pH 5.5 Normal Ur Specific [place] 1.020 Urine Protein 3+ H Urine Glucose (UA) 3+ H Urine Ketones Trace H Urine Occult Blood Trace-intact Urine Nitrate Negative Urine Bilirubin Negative Urine Urobilinogen 0.2 Ur Leukocyte Esterase Negative Urine RBC 0-1/hpf Urine WBC 1-5/hpf Ur Squamous Epith Cells 10-30 /hpf H Urine Bacteria Many (>30) H Urine Yeast 0-1/hpf Ur Culture Indicated? Cult not indicated Vol Urine Centrifuged 10ml (spun) U Opiates 300ng/mL cut Negative Ur Oxycodone Screen Negative Urine Methadone Screen Negative Ur Barbiturates Screen Negative U Tricyclic Antidepress Negative Ur Phencyclidine Scrn Negative Ur Amphetamines Screen Negative U Methamphetamines Scrn Negative Ur MDMA Scrn (Ecstasy) Negative U Benzodiazepines Scrn Negative Urine Cocaine Screen Negative U Marijuana (THC) Screen Negative Urine Specific [place] Normal Ur Creatinine Normal Assessment & Plan Assessment and plan (1) TIA (transient ischemic attack): Status: Acute (2) Acute left-sided weakness: Status: Acute (3) HTN (hypertension): Status: Acute (4) HLD (hyperlipidemia): Status: Acute (5) Diabetes: Status: Acute (6) Diabetic neuropathy: Status: Acute Assessment & Plan narrative: 1. TIA, r/o CVA - has major risk factors for stroke, HTN, DM, mixed HLD - observation on telemetry - permissive HTN - had ASA and Plavix, continue statin and fish oil - CT and CTA non-revealing and unable to fit in MRI - repeating CTH - echocardiogram, lipid panel, A1C, TSH pending - resolving left hand and left leg weakness - PT, OT, ST assessment 2. HTN - Valsartan on hold for permissive HTN 3. Mixed HLD - statin, Fish Oil at home - lipid panel pending 4. DM - SS, lantus, CCD - metformin on hold (had CTA) 5. GERD - PPI 6. Morbid Obesity - BMI 49 - unable to fit into MRI DVT prophylaxis - Lovenox Quality VTE Deep Vein Thrombosis/Pulmonary Embolism Present on Admission: No
[2023-07-22 06:29] LABS: Add Manual Diff / Slide Review NO; Basophils Absolute Auto 100 /uL (0-100); Basophils Percent Auto 0.9 % (0-2); Eosinophils Absolute Auto 100 /uL (0-450); Eosinophils Percent Auto 1.3 % (2-4); Hematocrit 42.7 % (36-46); Hemoglobin 13.9 g/dL (12.0-16.0); Lymphocytes Absolute Auto 1800 /uL (1100-4500); Lymphocytes Percent Auto 25.9 % (25-40); Mean Corpuscular HGB Conc 32.5 % (30-36); Mean Corpuscular Hemoglobin 25.7 PG (26-34); Mean Corpuscular Volume 79.1 fL (80-100); Monocytes Absolute Auto 600 /uL (0-900); Monocytes Percent Auto 8.4 % (3-14); Neutrophils Absolute Auto 4300 /uL (1500-7000); Neutrophils Percent Auto 63.5 % (50-75); Platelet Count 194 X10^3/uL (150-400); Red Cell Distribution Width 16.3 % (11.6-14.8); White Blood Cell Count 6.8 X10^3/uL (4.5-11.0)
[2023-07-22 06:42] LABS: BUN Creatinine Ratio 29.8 (6-22); Blood Urea Nitrogen 14 mg/dL (7-17); Calcium 8.6 mg/dL (8.4-10.2); Carbon Dioxide 31 mmol/L (22-32); Chloride 104 mmol/L (98-107); Estimated Glomerular Filt Rate > 60 mL/min (>60); Glucose 284 mg/dL (80-110); HEMOLYSIS < 15 (0-50); Potassium 4.2 mmol/L (3.4-5.1); Sodium 136 mmol/L (137-145)
[2023-07-22 06:43] LABS: Cholesterol 208 mg/dL (140-199); HDL Cholesterol 39 mg/dL (40-60); LDL Cholesterol Calculated 143 mg/dL (<100); Triglycerides 128 mg/dL (35-150)
[2023-07-22 06:48] LABS: Hemoglobin A1C% w Est Avg Glu 11.3 % (4.0-6.0)
--- NOTE | 2023-07-22 07:33 | PC.NURSE ---
night time nanny RN note pt arrived from ER via w/c, ambulated with cane to bed with one assist, A&Ox4, flat affect, KHAN, slight weakness noted to L foot dorsal/pedal flexion, pt states baseline neuropathy to bilat feet, denies pain, call freire within reach, bed alarm on
[2023-07-22] MEDS: INSULIN LISPRO 100 UNIT/ML 3ML VIAL SUBCUT ×3 (08:33→17:23)
[2023-07-22] MEDS: FISH OIL 1,000 MG CAPSULE 1000 MG PO (08:34)
[2023-07-22] MEDS: ENOXAPARIN 40 MG/0.4 ML SYRINGE SUBCUT (08:34)
[2023-07-22] MEDS: INSULIN GLARGINE 100 UNIT/ML 3ML PEN 56 UNIT SUBCUT (08:34)
[2023-07-22] MEDS: CETIRIZINE 10 MG 1 EACH PO (10:10)
[2023-07-22] MEDS: OMEPRAZOLE 20 MG 40 EACH PO (10:10)
--- NOTE | 2023-07-22 10:47 | OT.IP.EVAL ---
Current Diagnoses Type 2 diabetes mellitus with diabetic neuropathy, unspecified (07/21/23) Type 2 diabetes mellitus without complications (07/21/23) Hyperlipidemia, unspecified (07/21/23) Transient cerebral ischemic attack, unspecified (07/21/23) Essential (primary) hypertension (07/21/23) Weakness (07/21/23) Past Medical History (Last Updated 07/22/23 @ 03:48 by Thuan Ryan MD) Diabetes HLD (hyperlipidemia) HTN (hypertension) Neuropathy Occupational Therapy Inpatient Evaluation/Re-Eval M3 OT- IP Subjective and Pain Start: 07/22/23 10:51 Freq: Status: Active Protocol: Document 07/22/23 10:51 [facility] (Rec: 07/22/23 11:11 [facility] [id number]) OT- Subjective Occupational Therapy Visit Type Type Treatment Note Visit Start Time 10:05 Visit Stop Time 10:47 Occupational Therapy Visit Comments Patient Comments Pt agreed to get up. Patient/Caregiver Goals TO go home. OT Pain Assessment Pain When Pain Assessed At Rest Pain Present Pain Present Denied Pain M4 OT- IP ADL's Start: 07/22/23 10:51 Freq: Status: Active Protocol: Document 07/22/23 10:51 [facility] (Rec: 07/22/23 11:11 [facility] [id number]) OT URP-Drym-Gkeoirl General Evaluation Self-Feeding Ability Independent OT ADL-Grooming General Evaluation Grooming Ability Independent Areas Needing Assistance Retrieving/Set-up of Grooming Items Comments OT Grooming Comments Able to do while standing with FWW OT ADL-Oral Care General Eval Oral Care Ability Independent Comments Oral Care Comments Able to do while standing at the sink with FWW. OT ADL-Dressing General Eval Lower Body Dressing Ability Minimal Assistance Comments OT Dressing Comments Pt able to do compression stocking for RLE and will need some assist for her LLE. OT ADL-Toileting General Evaluation Toileting Ability Standby Assistance Comments OT Toileting Comments Pt states has equipment to assist with wiping needs. OT ADL-Bathing Comments OT Bathing Comments Pt has a shower chair at home and can assist if needed. M5 OT- IP IADL's Start: 07/22/23 10:51 Freq: Status: Active Protocol: Document 07/22/23 10:51 [facility] (Rec: 07/22/23 11:11 [facility] [id number]) OT-Instrumental Activities of Daily Living Home Safety Awareness Awareness of Need for Assistance at Home Good Awareness Ability to Problem Solve Emergency Able to Problem Solve Situations Medication Management Medication Management Comments Pt did prior, pt would benefit from supervision from initially. Money Management Money Management Comments Pt did prior, pt would benefit from supervision from her initially. Meal Preparation Meal Preparation Comments Pt did prior, pt would benefit from supervision form initially. Sports Cartoonist Sports Cartoonist Comments Pt did prior, pt would benefit from supervision form initially. Driving Driving Concerns Identified Regarding Safety Driving Comments Pt agreed that she will not drive initially. M6 OT- IP Functional Cognition Start: 07/22/23 10:51 Freq: Status: Active Protocol: Document 07/22/23 10:51 [facility] (Rec: 07/22/23 11:11 [facility] [id number]) Cognitive Factors Limiting Selfcare Function Cognitive Ability Level of Alertness Alert Patient Orientation Name,Age,Birthday,Month,Date, Year,Day of Week,Place, Situation Attention Span Ability Capable of Focused Attention, Capable of Sustained Attention Ability to Follow Commands Able to Follow One Step Commands Safety Awareness No Deficits Noted Cognitive Comments Cognitive Assessment Comments Pt able to follow multiple commands for ADL and mobility needs. Pt scored 126 seconds on [place] Making Part B which implies significant impairment for visual attention, speed of processing, task switching, mental flexibility, and executive functioning. Pt scored well below 10th percentile for her age. Pt states realizes feeling a little slow for thinking and that she did not sleep well last night. OT- Vision and Hearing OT- Hearing Assessment OT- Hearing Assessment WFL OT- Vision Assessment Visual Acuity WFL Visual Attentiveness WFL Occular Pursuits WFL Visual Convergence WFL Visual Das WFL M7 OT- IP Mobility and Balance Start: 07/22/23 10:51 Freq: Status: Active Protocol: Document 07/22/23 10:51 [facility] (Rec: 07/22/23 11:11 [facility] [id number]) OT- Bed Mobility Assessment Supine to Sit Supine to Sit Assist Moderate Assistance OT-Transfer Assessment Sit to and From Stand Sit to and from Stand Contact Guard Assistance Transfers Transfer Ability Standby Assistance Technique Transfer Destination Bed Transfer Technique Stand Step Pivot Devices Transfer Assistive Devices Gait Belt,Front Wheeled Walker Comments Mobility Comments MODA to assist to pull up to sitting. CGA to stand and SBA with FWW to walk in the room. OT- Balance Assessment Sitting Balance and Reactions Static Sitting Balance Ability Normal Dynamic Sitting Balance Ability Good Standing Balance and Reactions Static Standing Balance Ability Good Dynamic Standing Balance Ability Good M8 OT- IP Objective Assessments Start: 07/22/23 10:51 Freq: Status: Active Protocol: Document 07/22/23 10:51 [facility] (Rec: 07/22/23 11:11 [facility] [id number]) OT Gross Range of Motion Upper Extremity Range of Motion ROM Impairments grossly WFL OT Strength Comments Strength Comments WFL for needs OT- Coordination Assessment Upper Extremity Finger to Nose Test Within Functional Limits Comments Coordination Comments 9 hole peg R hand 28sec. and L hand 36 second which both below 10th percentile left hand more so. 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 OT-Muscle Tone Assessment Muscle Tone WNL Yes M9 OT- IP Assessment and Plan Start: 07/22/23 10:51 Freq: Status: Active Protocol: Document 07/22/23 10:51 [facility] (Rec: 07/22/23 11:11 [facility] [id number]) OT Summary Assessment and Plan Potential Rehabilitation Potential Excellent Analytic Complexity at Evaluation Low Summary OT Impairments Balance,Functional Cognition, Functional Mobility,Bathing, Shower Transfers,Activity Tolerance Progress Towards Goals Progressing Toward Goals Assessment Summary Pt low complexity and here for R/O TIA versus CVA. Pt noted to have decreased coordination left hand more than right hand, decreased dynamic balance and now relying on FWW. Pt scored 126 seconds on [place] Making Part B which implies significant impairment for visual attention, speed of processing , task switching, mental flexibility, and executive functioning. Pt scored well below 10th percentile for her age. Pt states realizes feeling a little slow for thinking and that she did not sleep well last night. Pt has a supportive to be able to assist her with any needs at home. Pt to go home with assist. Pt states to be able to work on FMS on her own , otherwise may benefit from outpt OT. Goals Dressing Goal Independent Toileting Goal Independent Bathing Goal Independent Shower Transfer Goal Independent Days to Meet Goals 5 Frequency of Treatment Frequency Of Treatment Once a Day Treatment Plan OT Treatment Plan ADL Training,Functional Cognition Training,Functional Mobility,Patient/Family Education,Discharge Planning Discharge Recommendations OT Discharge Recommendations Home with Assistance Other Discharge Recommendations Possibly need outpt OT pending progress. Home Equipment Needs FWW Transportation Needs at Discharge Private Vehicle
--- NOTE | 2023-07-22 12:37 | PT-IP ANOTE ---
checked on pt x 2 this morning. pt first was working with OT. checked back on pt afterwards and pt was with director of diagnostic imaging for ECHO. will check on pt again this afternoon.
--- NOTE | 2023-07-22 14:28 | CM.DANOTE ---
Addendum entered by EBER Chery 07/22/23 16:39: Per hospitalist, pt to dc home this evening. No CM needs. HYACINTH Original Note: DCP Assesment Note Pt is a 62yo F here following potential TIA. She presented to the ED after left eye and left arm weakness. Per ED note, pt's weakness resolved in ED but pt was admitted for stroke evaluation and repeated CT. PCP [facility] Payer [facility] and self pay VETERINARY LABORATORY TECHNICIAN reviewed EMR. Per OT, rec home with assistance. PT pending. Per hospitalist, potential to dc home today. VETERINARY LABORATORY TECHNICIAN met with pt briefly in room. Pt was sleeping prior to dcp conversation, was drowsy but alert enough for cohesive conversation. Pt reports eager to go home. Pt had cane in room and reports uses it at baseline. Denies any CM needs. Reports either spouse or son Sina will transport home. Plan: anticipate home when stable, either today vs tomorrow. Spouse at home to assist, spouse or son to transport. No CM needs identified. CM team will follow as needed. EBER Chery Discharge Planning/Care Management CM Discharge Assessment Start: 07/22/23 14:26 Freq: Status: Active Protocol: Document 07/22/23 14:27 (Rec: 07/22/23 14:28 [id number]) Discharge Planning Assessment Assigned Dat Instructor EBER Oliver DPOA/Assigned Designee Name brain [facility]dez Contact Information [phone] Advance Directives? Yes Advance Directives on File Yes: per patient History Provided By Patient,Medical Record Prior Living Arrangements House Household Members spouse Type of transporation used prior to Drives own vehicle admit Independent with ADL's Yes Is patient alert and oriented? Yes DME Already Rented / Owned Cane Discharge Plan Home Transportation Arrangement spouse or son in POV Referrals Initiated None needed Whiteboard Updated in Patient Room with Yes name and ext. # of Dat Instructor Review Status In Process Please Provide Date Initial DC 07/22/23 Assessment Was Performed Next Review Type Continued Stay Review
--- NOTE | 2023-07-22 15:05 | PT.IIE ---
Current Diagnoses Type 2 diabetes mellitus with diabetic neuropathy, unspecified (07/21/23) Type 2 diabetes mellitus without complications (07/21/23) Hyperlipidemia, unspecified (07/21/23) Transient cerebral ischemic attack, unspecified (07/21/23) Essential (primary) hypertension (07/21/23) Weakness (07/21/23) Medical History (Last Updated 07/22/23 @ 03:48 by Thuan Ryan MD) Diabetes HLD (hyperlipidemia) HTN (hypertension) Neuropathy Physical Therapy Inpatient Evaluation/Re-Eval M1 PT/OT-IP Prior Functional Status Start: 07/22/23 16:21 Freq: NEEDED Status: Active Protocol: Document 07/22/23 15:05 AB (Rec: 07/22/23 16:42 AB [id number]) Medical Review Prior Functional Status Medical History Reviewed Yes Communication able to make needs known; able to respond to question but with slowness slow speech Mobility and Gait pt stated that she is modified independent with all mobilities and ambulation without AD indoors but uses a SPC for outdoor mobility; has h/o falls Activities of Daily Living and IADL's per OT note: Independent with ADL's including compressiong stocking 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 Social History Household Members spouse Living Arrangements House Number of Floors (Floors) Two Floors Number of Stairs To Enter/Railing? pt stays on main level of the house: has 2 steps R rail to porch/enter the house pt has 15 steps R rail to get to main level of the house Home Environment High Toilet,Walk in Shower Home Equipment Straight Cane,Shower Seat with Backrest,Hand Held Shower Additional Social History Comment pt stated that they will get a FWW for her to use and will also put in grab bars in the toilet and shower M2 PT-IP Current Condition Start: 07/22/23 16:21 Freq: NEEDED Status: Active Protocol: Document 07/22/23 15:05 AB (Rec: 07/22/23 16:42 AB [id number]) Physical Therapy Current Condition Current Condition Evaluation Date 07/22/23 Treatment Diagnosis TIA; r/o CVA; difficulty in walking Onset Date 07/21/23 M3 PT-IP Subjective Start: 07/22/23 16:21 Freq: NEEDED Status: Active Protocol: Document 07/22/23 15:05 AB (Rec: 07/22/23 16:42 AB [id number]) Subjective Physical Therapy Visit Type Type Initial Evaluation Visit Start Time 15:05 Visit Stop Time 15:48 Number of METAL TANK ERECTOR Visits 0 Physical Therapy Visit Comments Patient Comments agreeable to do PT M4 PT-IP Mobility and Gait Start: 07/22/23 16:21 Freq: NEEDED Status: Active Protocol: Document 07/22/23 15:05 AB (Rec: 07/22/23 16:42 AB [id number]) PT-Bed Mobility Assessment Supine to Sit Supine to Sit Independent Sit to Supine Sit to Supine Independent PT-Transfer Assessment Sit to and From Stand Sit to and from Stand Standby Assistance,1 Person Assistance,Use of Upper Extremities Equipment Transfer Assistive Device Gait Belt,Straight Cane,Front Wheeled Walker Orthotic/Prosthetic Devices or Brace: No Transfers Transfer Destination Bed,Chair Transfer Technique ambulated Transfer Ability Level of Assist Standby Assistance,Contact Guard Assistance Comments Mobility Comments pt sitting on the chair and agreeable to do PT. obtained PLOF and home set up from pt. pt completed sit to stand from the chair SBA and ambulated to EOB ~ 15 ft using fWW SBA. presents with wadding gait with decrease LE elevation and step length. pt also has bilateral LE ER with ankle inversion L>R. pt completed sit<>supine mod I. pt ambulated back to chair using SPC CGA . presents with unsteady very guarded gait. recommending use of FWW at this time and pt agreed. stated that she will get one for her to use. pt agreed to do stairs. pt ambulated in the hallway using FWW ~ 75 ft SBA. pt sat on w/c and educated on stair climbing. pt completed sit to stand from w/c SBA x 2 attempts to complete and cues to keep trunk forward for sit to stand. pt tends to lean back resulting in R feet sliding forward. pt completed up/down steps using R rail ascending SBA. pt repeated x 2 sets. educated pt regarding techniques for steadier ascending/descending steps. pt assisted back to the room. completed sit to stand from the w/c SBA but with initial posterior slight LOB but with recovery. educated pt again regading techniques for sit to stand. pt ambulated back to chair using fWW SBA. positioned pt on the chair. call light and table placed within reach. educated pt regarding safety and balance techniques. pt with chronic B feet neuropathy affecting mobility and educated strategies to adapt due BLE loss of sensation. pt understood. recommending outpt PT for balance and mobility and pt agreed. Gait Assessment Gait Gait Assistance Required: Standby Assistance,Contact Guard Assist Distance (Feet) 75 Able to Maintain Weight Bearing Status Yes During Gait Assistive Devices Assistive Device Gait Belt,Straight Cane,Front Wheeled Walker Orthotic/Prosthetic Devices or Brace: No Gait Deviations General Gait Pattern Decreased Stride Length, Decreased Feet Clearance,Wide Based Gait Factors Limiting Gait Function Factors Limiting Gait Function Decreased Activity Tolerance, Decreased Sensation,Decreased Strength,Limited Range of Motion,Poor Balance,Poor Safety Awareness Stair Climbing Assessment Evaluation Level of Assist On Stairs Standby Assistance Devices Stair Climbing Assistive Devices Right Railing Technique/Endurance Stair Climbing Direction Ascend and Descend Stair Climbing Technique Step to Step Number of Steps Climbed 3 Query Text: Stair Climbing Set # Repetitions (reps) 2 PT-Balance Assessment Sitting Balance and Reactions Static Sitting Balance Ability Normal Dynamic Sitting Balance Ability Good Standing Balance and Reactions Static Standing Balance Ability Fair Dynamic Standing Balance Ability Fair Device Used FWW M5 PT-IP Objective Assessments Start: 07/22/23 16:21 Freq: NEEDED Status: Active Protocol: Document 07/22/23 15:05 AB (Rec: 07/22/23 16:42 AB [id number]) Orientation Orientation/Cognition Level of Alertness Alert Orientation Name,Place,Situation Safety Awareness Decreased Safety Awareness Strength Lower Extremity Strength Hip 4-/5 Knee 4-/5 Sensation Assessment Sensation Sensation Description Numbness Comments Sensation Comments BLE : feet numbness Muscle Tone Muscle Tone WNL Yes M6 PT-IP Treatment Start: 07/22/23 16:21 Freq: NEEDED Status: Active Protocol: Document 07/22/23 15:05 AB (Rec: 07/22/23 16:42 AB [id number]) Physical Therapy Treatment Education Education Provided Safety M7 PT-IP Assessment and Plan Start: 07/22/23 16:21 Freq: NEEDED Status: Active Protocol: Document 07/22/23 15:05 AB (Rec: 07/22/23 16:42 AB [id number]) PT Summary Assessment and Plan Potential Rehabilitation Potential Fair Status of Condition at Evaluation Stable Summary Impairments Pain,ROM,Strength,Balance, Coordination,Sensation,Tone, Cognition,Bed Mobility, Transfers,Gait,Activity Tolerance Assessment Summary pt is a 62 y/o F who presented tot he ED due to L sided weakness. pt admitted fro TIA ; R/O CVA. pt requiring SBA for ambulation using fWW. Assessed ambulation using SPC requiring CGA and with increase unsteadiness compared to use of FWW. recommending use of FWW at this time and pt agreed. pt will require outpt PT to improve balance, ambulation and activity tolerance. Goals Transfer Goal Independent,Front Wheeled Walker Gait Goal Independent,Front Wheel Walker Gait Distance 300 Other Goals improve transfers and ambulation using LRAD ~ 300 ft mod I up/down 15 steps using R rail ascending mod I Days to Meet Goals 5 Frequency of Treatment Frequency Of Treatment Once a Day Treatment Plan Physical Therapy Treatment Plan Bed Mobility Training,Transfer Training,Gait Training, Therapeutic Exercise,Balance Retraining,Discharge Planning, Hot or Cold Pack,Neuromuscular Re-ed,Coordination Retraining ,Manual Therapy Recommendations To Nursing Amount of Assist Needed Standby Assistance Discharge Recommendations PT Discharge Recommendations Home with Assistance, Outpatient PT Equipment Needed for Home Before FWW Discharge Transportation Needs at Discharge Private Vehicle
--- NOTE | 2023-07-22 16:49 | P.DS_ITS ---
History of Present Illness History of Present Illness Chief complaint: thinks shes had a stroke Narrative: 62-year-old female with past medical history of type 2 diabetes, diabetic neuropathy, hypertension, hyperlipidemia, GERD, morbid obesity, hospitalization in 2022 for DKA, presented to ED 6 hours after she felt her left arm and hand to be clumsy and left leg weaker. 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 Upon arrival to ED her symptoms fluctuated, initially her leg weakness resolved then reappeared. Her left hand still does not feel right. Initial workup showing hypertension, unremarkable CTH and CTA head and neck. Can't fit into the MRI. Given ASA and Plavix. Placed in observation on telemetry with TIA vs CVA for repeat CTH, echocardiogram, PT, OT and ST evaluation. Discharge Providers Provider Date of admission: 07/21/23 23:57 Discharge Date: 07/22/23 Primary care physician: Jeff GUZMAN Provider Consults: 07/22/23 02:15 Consult to Occupational Therapy Evaluate & Treat Comment: Physician Instructions: Evaluate and treat Consult to Physical Therapy Evaluate & Treat Comment: Physician Instructions: Evaluate and Treat Discharge provider: Chas Sharma DO Summary Hospital Course Discharge Diagnosis: 1. possible TIA - has major risk factors for stroke, HTN, DM, mixed HLD - observation on telemetry - permissive HTN - had ASA and Plavix, continue statin and fish oil - CT and CTA non-revealing and unable to fit in MRI - echocardiogram showed EF 60%, no shunt, lipid panel with LDL 143, A1C 11%, TSH 1.7 -patient did not want to switch off simvastatin to high intensity statin - resolving left hand and left leg weakness, now gone - PT, OT, ST assessment cleared for home - continue plavix x21 days with aspirin 2. HTN - Valsartan on hold for permissive HTN 3. Mixed HLD - statin, Fish Oil at home - lipid panel pending 4. DM - SS, lantus, CCD - metformin on hold (had CTA) 5. GERD - PPI 6. Morbid Obesity - BMI 49 - unable to fit into MRI Hospital Course: Admitted for possible TIA. Placed on DAPT. Could not fit into MRI machine. CT/CTA negative. Echo reassuring. LDL 143 and A1c 11% which patient will address with PCP. She did not want to switch to high intensity statin and stay on simvastatin. She will address insulin dosing with PCP, of which she reports compliance. Discharged home after PT/OT cleared her. Exam Vital Signs (past 8 hours): - 07/22/23 12:39 07/22/23 15:54 Temperature 96.7 F L 97.0 F L Pulse Rate 100 H 92 H Respiratory Rate 18 18 Blood Pressure 176/95 H 186/79 H Pulse Oximetry 96 93 Oxygen Flow Rate 0 0 Oxygen Delivery Method Room Air Oxygen Flow Rate 0 Const Other: in no distress, laying in bed, at bedside HENMT Other: not congested, oral crowding Eyes Other: eomi, reactive, equal pupils Neck Other: short, supple Resp Other: normal respiratory effort Cardio Other: RRR GI Other: obese abdomen Skin Other: w/o rashes Neuro Other: no focal deficits Extrem Other: w/o swelling Psych Other: appropriate mood, lucid Objective Labs 07/22/23 06:12 07/22/23 06:12 Labs: Laboratory Results - last 24 hr 07/21/23 07/21/23 07/21/23 18:34 20:45 20:45 WBC 7.0 RBC 5.57 H Hgb 14.3 Hct 44.4 MCV 79.7 L MCH 25.7 L MCHC 32.3 RDW 15.7 H Plt Count 205 Neut % (Auto) 60.1 Lymph % (Auto) 26.9 [place] % (Auto) 9.6 Eos % (Auto) 2.0 Baso % (Auto) 1.4 Neut # (Auto) 4200 Lymph # (Auto) 1900 [place] # (Auto) 700 Eos # (Auto) 100 Baso # (Auto) 100 PT 10.0 INR 0.9 APTT 35 Sodium 136 L Potassium 4.3 Chloride 103 Carbon Dioxide 32 BUN 17 Creatinine 0.57 Estimated GFR > 60 BUN/Creatinine Ratio 29.8 H Glucose 271 H Hemoglobin A1c Calcium 8.9 Magnesium 1.9 Total Bilirubin 0.5 AST 24 ALT 26 Alkaline Phosphatase 103 Total Creatine Kinase 36 Troponin I < 0.012 Total Protein 6.4 Albumin 3.7 Globulin 2.7 Albumin/Globulin Ratio 1.4 Triglycerides Cholesterol LDL Cholesterol, Calc HDL Cholesterol TSH Urine Color Yellow Urine Appearance Clear Urine pH 5.5 Normal Ur Specific [place] 1.020 Urine Protein 3+ H Urine Glucose (UA) 3+ H Urine Ketones Trace H Urine Occult Blood Trace-intact Urine Nitrate Negative Urine Bilirubin Negative Urine Urobilinogen 0.2 Ur Leukocyte Esterase Negative Urine RBC 0-1/hpf Urine WBC 1-5/hpf Ur Squamous Epith Cells 10-30 /hpf H Urine Bacteria Many (>30) H Urine Yeast 0-1/hpf Ur Culture Indicated? Cult not indicated Vol Urine Centrifuged 10ml (spun) U Opiates 300ng/mL cut Negative Ur Oxycodone Screen Negative Urine Methadone Screen Negative Ur Barbiturates Screen Negative U Tricyclic Antidepress Negative Ur Phencyclidine Scrn Negative Ur Amphetamines Screen Negative U Methamphetamines Scrn Negative Ur MDMA Scrn (Ecstasy) Negative U Benzodiazepines Scrn Negative Urine Cocaine Screen Negative U Marijuana (THC) Screen Negative Urine Specific [place] Normal Ur Creatinine Normal 07/22/23 06:12 WBC 6.8 RBC 5.40 H Hgb 13.9 Hct 42.7 MCV 79.1 L MCH 25.7 L MCHC 32.5 RDW 16.3 H Plt Count 194 Neut % (Auto) 63.5 Lymph % (Auto) 25.9 [place] % (Auto) 8.4 Eos % (Auto) 1.3 L Baso % (Auto) 0.9 Neut # (Auto) 4300 Lymph # (Auto) 1800 [place] # (Auto) 600 Eos # (Auto) 100 Baso # (Auto) 100 PT INR APTT Sodium 136 L Potassium 4.2 Chloride 104 Carbon Dioxide 31 BUN 14 Creatinine 0.47 L Estimated GFR > 60 BUN/Creatinine Ratio 29.8 H Glucose 284 H Hemoglobin A1c 11.3 H Calcium 8.6 Magnesium Total Bilirubin AST ALT Alkaline Phosphatase Total Creatine Kinase Troponin I Total Protein Albumin Globulin Albumin/Globulin Ratio Triglycerides 128 Cholesterol 208 H LDL Cholesterol, Calc 143 H HDL Cholesterol 39 L TSH 1.70 Urine Color Urine Appearance Urine pH Ur Specific [place] Urine Protein Urine Glucose (UA) Urine Ketones Urine Occult Blood Urine Nitrate Urine Bilirubin Urine Urobilinogen Ur Leukocyte Esterase Urine RBC Urine WBC Ur Squamous Epith Cells Urine Bacteria Urine Yeast Ur Culture Indicated? Vol Urine Centrifuged U Opiates 300ng/mL cut Ur Oxycodone Screen Urine Methadone Screen Ur Barbiturates Screen U Tricyclic Antidepress Ur Phencyclidine Scrn Ur Amphetamines Screen U Methamphetamines Scrn Ur MDMA Scrn (Ecstasy) U Benzodiazepines Scrn Urine Cocaine Screen U Marijuana (THC) Screen Urine Specific [place] Ur Creatinine [facility] Medical History (Updated 07/22/23 @ 03:48 by Thuan Ryan MD) HLD (hyperlipidemia) HTN (hypertension) Diabetes Neuropathy Social History household members: spouse Smoking Status: Never smoker Discharge Plan Discharge Plan Patient Disposition: Home Provider Discharge Comment: You will be on plavix for 3 weeks due to your possible TIA. Your A1c was 11% so I would have this addressed with your PCP maame. Discharge orders & Medications Prescriptions: New clopidogrel [Plavix] 75 mg tablet 75 mg PO DAILY 21 Days Qty: 21 0RF simvastatin 40 mg tablet 40 mg PO BEDTIME Qty: 30 0RF Continued aspirin 81 mg tablet,delayed release (DR/EC) 81 mg PO QPM omega [id number] oil [Fish Oil] 1,000 mg (120 mg-180 mg) Capsule 1 cap PO DAILY amitriptyline 25 mg tablet 25 mg PO ONCE PM valsartan 80 mg tablet 80 mg PO DAILY metformin 500 mg tablet extended release 24 hr 500 mg PO BID omeprazole 20 mg capsule,delayed release(DR/EC) 40 mg PO QAM insulin aspart U-100 [Novolog U-100 Insulin aspart] 100 unit/mL solution 30 unit SUBCUT QAM Patient Comments: [NO ORIGINAL SIG] insulin glargine U-300 conc [Toujeo Max U-300 SoloStar] 300 unit/mL (3 mL) insulin pen 70 unit SUBCUT QAM Patient Comments: [NO ORIGINAL SIG] Discontinued simvastatin 40 mg tablet 40 mg PO ONCE PM Follow up/Referrals: ProviderJeff [Primary Care Provider] - Visit Report/Discharge Packet Instructions: DI for Transient Ischemic Attack, Clopidogrel Stand Alone Forms: Patient Portal/API, Stroke Signs & Symptoms Discharge Data Primary Care Provider: Jeff Raymundo Attending Provider: Thuan Perkins Admit Date/Time: 07/21/23 23:57 Quality VTE Deep Vein Thrombosis/Pulmonary Embolism Present on Admission: No
[2023-07-22] MEDS: ASPIRIN EC 81 MG TABLET PO (17:23)
--- NOTE | 2023-07-22 18:02 | PC.NURSE ---
Patient escorted out via wheelchair with all belongings by [employer] to discharge to home with her . Patient reports understanding of discharge instructions and has no further questions or concerns at this time./
== END 2023-07-22 18:07 | disposition home or self-care (01) ==
LOC: ED 23:57 → AC 23:58
PROVIDERS: Admitting Provider Internal Medicine; Emergency Provider Emergency Medicine; Referring Provider Emergency Medicine; Visit Provider Internal Medicine
DX: R53.1 Weakness (principal); I10 Essential (primary) hypertension; E11.40 Type 2 diabetes mellitus with diabetic neuropathy, unspecified; E78.2 Mixed hyperlipidemia; Z79.84 Long term (current) use of oral hypoglycemic drugs; Z79.4 Long term (current) use of insulin; K21.9 Gastro-esophageal reflux disease without esophagitis; E66.01 Morbid (severe) obesity due to excess calories; Z68.42 Body mass index [BMI] 45.0-49.9, adult
CPT/HCPCS: 36415; 70450; 70496; 70498; 71045; 80048; 80053; 80061; 80305; 81001; 82550; 82962; 83036; 83735; 84443; 84484; 85025; 85610; 85730; 93005; 93306; 96372; 96374; 97129; 97161; 97165; 97530; 97535; 99285; G0378; A9270; J1650; J1815; J2060; Q9967

== ENCOUNTER 2024-02-03 15:35 | Emergency (ER) | payer OTHER, SELFPAY ==
[2023-07-22 00:01] VITALS: BMI 49.3
[2024-02-03 16:03] VITALS: BP 161/71; PULSE 71; RESP 18; TEMP 36.7; O2SAT 97; BMI 47.7
--- NOTE | 2024-02-03 16:07 | DI.RAD.S_ITS ---
PROCEDURE: XR FOOT RT MIN 3V INDICATIONS: felt/heard a pop while walking today TECHNIQUE: 3 views of the foot were acquired. COMPARISON: [facility], CR, XR FOOT LT MIN 3V, 10/11/2019, 8:05. FINDINGS: Bones: Chronic appearing deformity involving 1st proximal phalangeal neck and distal shaft is seen. Moderate to severe 1st interphalangeal joint osteoarthritic changes also seen. No acute fracture or dislocation. Well-defined plantar calcaneal enthesophyte is seen. No suspicious bony lesions. Soft tissues: No tibiotalar joint effusion. Achilles tendon appears normal. IMPRESSION: No acute right foot fracture or dislocation. 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 Well-defined plantar calcaneal enthesophyte. Dictated by: Fred Morataya M.D. on 02/03/2024 at 16:50 Approved by: Fred Morataya M.D. on 02/03/2024 at 16:56
--- NOTE | 2024-02-03 16:31 | DI.RAD.S_ITS ---
PROCEDURE: XR ANKLE RT MIN 3V INDICATIONS: felt a pop/pain while walking TECHNIQUE: 3 views of the ankle were acquired. COMPARISON: None. FINDINGS: Bones: Acute oblique fracture involving distal fibular shaft/lateral malleolus is seen with dorsal and lateral displacement at fracture site. There is also minimally displaced transverse fracture through base of medial malleolus. No other fracture or dislocation is seen. There is widening of medial and lateral ankle mortise. Slight medial tilting of the talar dome in relation to distal tibia is seen. Well-defined plantar calcaneal enthesophyte is seen. No suspicious bony lesions. Soft tissues: No tibiotalar joint effusion. Achilles tendon appears normal. IMPRESSION: Acute slightly displaced bimalleolar fracture with disruption of ankle mortise as described above. Dictated by: Fred Morataya M.D. on 02/03/2024 at 17:00 Approved by: Fred Morataya M.D. on 02/03/2024 at 17:01
[2024-02-03 19:01] VITALS: BP 167/72; PULSE 78; O2SAT 99
--- NOTE | 2024-02-03 19:05 | ED.LOWEXIN ---
HPI - Extremity Injury (Lower) General Chief Complaint: Extremity Injury, Lower Stated Complaint: poss broken rt foot Time Seen by Provider: 02/03/24 18:47 Source: patient Mode of arrival: Wheelchair History of Present Illness HPI Narrative: Patient is a 63-year-old female. States she had a ?TIA? several months ago and since that has had quite a bit of mobility issues. States that she was here for evaluation of right foot and right ankle pain. She stated that she was coming out of the bathroom of her house. Stepped down on her right ankle and thought that she would actually stepped on something because she heard a crack. Has had discomfort with walking of the right ankle since then. She did not slip. There was no twisting injury. She did fall approximately 1 week ago and sustained some bruising to the toes on that foot but has been ambulatory since then. No other injuries from the event. She does have baseline neuropathy in her feet. Related Data Home Medications Medication Instructions Recorded Confirmed aspirin 81 mg tablet,delayed 81 mg PO QPM 10/03/17 07/21/23 release omega 1-xix-jpy-fish oil 1,000 mg 1 cap PO DAILY 10/03/17 07/21/23 (120 mg-180 mg) capsule (Fish Oil) amitriptyline 25 mg tablet 25 mg PO ONCE PM 07/21/23 07/21/23 metformin 500 mg tablet,extended 500 mg PO BID 07/21/23 07/21/23 release 24 hr omeprazole 20 mg capsule,delayed 40 mg PO QAM 07/21/23 07/22/23 release valsartan 80 mg tablet 80 mg PO DAILY 07/21/23 07/21/23 insulin aspart U-100 100 unit/mL 30 unit SUBCUT QAM DM2 07/22/23 07/22/23 subcutaneous solution (Novolog U-100 Insulin aspart) insulin glargine U-300 conc 300 70 unit SUBCUT QAM 07/22/23 07/22/23 unit/mL (3 mL) subcutaneous pen (Toujeo Max U-300 SoloStar) Previous Rx's Medication Instructions Recorded simvastatin 40 mg tablet 40 mg PO BEDTIME #30 tabs 07/22/23 hydrocodone 5 mg-acetaminophen 325 1 tab PO Q4-6H PRN pain #14 tabs 02/03/24 mg tablet Allergies Allergy/AdvReac Type Severity Reaction Status Date / Time Iodinated Contrast Media Allergy Severe Difficulty Verified 10/25/22 12:44 Breathing codeine [CODEINE] AdvReac Unknown NAUSEA/VOMI Verified 10/11/19 10:46 TTING Review of Systems Review of Systems Narrative: See HPI Patient History Medical History HLD (hyperlipidemia) HTN (hypertension) Diabetes Neuropathy Social History household members: spouse Smoking Status: Never smoker Smoking Status: Never smoker alcohol intake frequency: holidays/special occasions only Substance Use Type: does not use Exam Initial Vital Signs Initial Vital Signs: Vital Signs Temperature 98.1 F 02/03/24 16:03 Pulse Rate 71 02/03/24 16:03 Respiratory Rate 18 02/03/24 16:03 Blood Pressure 161/71 H 02/03/24 16:03 Pulse Oximetry 97 02/03/24 16:03 Oxygen Delivery Method Room Air 02/03/24 16:03 Cardio Pulses: dorsalis pedis present on the right Skin Other: Bruising to the 2nd 3rd and 4th toes of the right foot. Neuro Other: Decreased sensation to light touch what she states is baseline for her. Extrem Other: No proximal fibula tenderness in the. She does have mild tenderness to the lateral malleolus. No Achilles tenderness. No discomfort to the mid foot on the right. Procedures Orthopedic Splinting/Casting Injury #1: Side: right Lower Extremity Injury Location: ankle Lower Extremity Immobilizer: posterior splint and stirrup splint Post splinting neuro exam: no change Post splinting vascular exam: no change Placed by: Provider Course Orders Ordered: ED Orders 02/03/24 16:31 XR ankle RT min 3V Stat Discontinued Medications Hydrocodone Bitart/Acetaminophen (Hydrocodone/Acet 5/325 Prepack) 1 bottle MISC DIRECTED ONE Stop: 02/03/24 19:28 Last Admin: 02/03/24 19:40 Dose: 1 bottle Documented By: PINA Vital Signs Vital signs: Vital Signs - 8 hr 02/03/24 19:01 02/03/24 19:01 02/03/24 19:30 Pulse Rate 78 74 Respiratory Rate Blood Pressure 167/72 H Pulse Oximetry 99 99 02/03/24 19:31 02/03/24 19:31 Pulse Rate 72 Respiratory Rate 18 Blood Pressure 155/69 H Pulse Oximetry 99 MDM - Extremity Injury (Lower) Imaging Data Extremity x-ray #1: Radiologist's Impression: PROCEDURE: XR FOOT RT MIN 3V INDICATIONS: felt/heard a pop while walking today TECHNIQUE: 3 views of the foot were acquired. COMPARISON: [facility], , XR FOOT LT MIN 3V, 10/11/2019, 8:05. FINDINGS: Bones: Chronic appearing deformity involving 1st proximal phalangeal neck and distal shaft is seen. Moderate to severe 1st interphalangeal joint osteoarthritic changes also seen. No acute fracture or dislocation. Well-defined plantar calcaneal enthesophyte is seen. No suspicious bony lesions. Soft tissues: No tibiotalar joint effusion. Achilles tendon appears normal. IMPRESSION: No acute right foot fracture or dislocation. 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 Well-defined plantar calcaneal enthesophyte. Extremity x-ray #2: Radiologist's Impression: PROCEDURE: XR ANKLE RT MIN 3V INDICATIONS: felt a pop/pain while walking TECHNIQUE: 3 views of the ankle were acquired. COMPARISON: None. FINDINGS: Bones: Acute oblique fracture involving distal fibular shaft/lateral malleolus is seen with dorsal and lateral displacement at fracture site. There is also minimally displaced transverse fracture through base of medial malleolus. No other fracture or dislocation is seen. There is widening of medial and lateral ankle mortise. Slight medial tilting of the talar dome in relation to distal tibia is seen. Well-defined plantar calcaneal enthesophyte is seen. No suspicious bony lesions. Soft tissues: No tibiotalar joint effusion. Achilles tendon appears normal. IMPRESSION: Acute slightly displaced bimalleolar fracture with disruption of ankle mortise as described above. MDM Narrative Medical decision making narrative: She does have a right ankle fracture which is somewhat surprising given the mechanism that she describes. She does have neuropathy of her right foot and this is baseline for her. She was placed in a posterior splint with a stirrup. She does not feel that she could manage crutches very well. She does have a wheelchair at home. She understands she does need to be nonweightbearing. Recommended follow-up with orthopedic surgery. She was given return precautions. She expressed understanding and agreement with the plan. Discharge Plan Departure Patient Disposition: Home Clinical Impression: Ankle fracture, right Instructions: DI for Ankle Fracture, How to Take Care of Your Splint Activity Restrictions/Additional Instructions: The splint that was placed today needs to be treated like a cast. You need to keep it on and keep it clean keep it dry. You should be nonweightbearing on your right leg. Continue to take all of your medications as directed. You are going to need follow-up with Orthopedic surgery. Recommend that tomorrow you contact the orthopedic group on the [facility] and if they are unable to follow-up with you then you can contact the Orthopedic Department of the number provided below. Return to the emergency department for new or worsening symptoms. Prescriptions: New hydrocodone-acetaminophen 5-325 mg tablet 1 tab PO Q4-6H PRN (Reason: pain) Qty: 14 0RF No Action aspirin 81 mg tablet,delayed release (DR/EC) 81 mg PO QPM omega 9-azj-ghk-fish oil [Fish Oil] 1,000 mg (120 mg-180 mg) Capsule 1 cap PO DAILY amitriptyline 25 mg tablet 25 mg PO ONCE PM valsartan 80 mg tablet 80 mg PO DAILY metformin 500 mg tablet extended release 24 hr 500 mg PO BID omeprazole 20 mg capsule,delayed release(DR/EC) 40 mg PO QAM insulin aspart U-100 [Novolog U-100 Insulin aspart] 100 unit/mL solution 30 unit SUBCUT QAM Patient Comments: [NO ORIGINAL SIG] insulin glargine U-300 conc [Toujeo Max U-300 SoloStar] 300 unit/mL (3 mL) insulin pen 70 unit SUBCUT QAM Patient Comments: [NO ORIGINAL SIG] simvastatin 40 mg tablet 40 mg PO BEDTIME Qty: 30 0RF Referrals: Arsalan Ortega MD [Physician] - Provider,Jeff GUZMAN [Primary Care Provider] - Stand Alone Forms: Patient Portal/API/Survey
[2024-02-03 19:30] VITALS: PULSE 74; O2SAT 99
[2024-02-03 19:31] VITALS: BP 155/69; PULSE 72; RESP 18; O2SAT 99
[2024-02-03] MEDS: HYDROCODONE/ACET 5/325 PREPACK 1 BOTTLE MISC (19:40)
--- NOTE | 2024-02-04 10:38 | PC.NURSE ---
Pt called requesting that prescription for Vicodin be sent to another pharmacy. Prescription was listed as 'received' in our electronic prescribing system at the [facility] pharmacy. I called the [facility] pharmacy who stated they did have the script and were in the process of filling it. As this is the case, we can not recall it and send it somewhere else. I called pt's preferred phone number (confirmed as spouse) and left message stating above. Pt also received to go script last night upon discharge from ED.
== END 2024-02-03 20:14 | disposition home or self-care (01) ==
PROVIDERS: Emergency Provider Emergency Medicine
DX: S82.841A Displaced bimalleolar fracture of right lower leg, initial encounter for closed fracture (principal); X50.1XXA Overexertion from prolonged static or awkward postures, initial encounter
CPT/HCPCS: 73610; 73630; 99281; 99283

== ENCOUNTER 2024-02-25 12:05 | Day surgery (SDC) | payer OTHER, SELFPAY ==
[2023-07-22 00:01] VITALS: BMI 49.3
[2024-02-20 08:16] VITALS: BMI 47.0
[2024-02-25] VITALS (10 sets, daily range): BP systolic 144–174; BP diastolic 59–90; PULSE 62–75; RESP 12–20; TEMP 36.1–36.3; O2SAT 94–99; BMI 47.0
--- NOTE | 2024-02-25 | DI.RAD.S_ITS ---
PROCEDURE: XR ANKLE RT 2V INDICATIONS: ORIF RT ANKLE TECHNIQUE: 5 views of the ankle were acquired. COMPARISON: [facility] [place], CR, XR ANKLE 3+ VIEWS RIGHT, 02/24/2024, 11:19. [facility], CR, XR ANKLE RT MIN 3V, 02/03/2024, 16:35. FINDINGS: Plate and screw fixation at the distal fibula. Screw fixation at the medial malleolus. Anatomic alignment. IMPRESSION: Intraoperative guidance. Dictated by: Alexx Hills M.D. on 02/25/2024 at 23:16 Approved by: Alexx Hills M.D. on 02/25/2024 at 23:37
[2024-02-25] MEDS: ACETAMINOPHEN 325 MG TABLET 975 MG PO (13:26)
[2024-02-25] MEDS: LACTATED RINGERS 1,000 ML 42 ML IV ×2 (13:33→16:18)
[2024-02-25 13:49] LABS: COVID19 -Nasal RAPID Negative (Negative)
--- NOTE | 2024-02-25 13:55 | PM.PREOP ---
Pre-operative Note Interval Note History & Physical reviewed/Exam performed by Physician: Yes Changes to H&P: No
--- NOTE | 2024-02-25 14:02 | SUR.OPER ---
Supine on padded OR bed, head on pillow, lt arm elevated on blanket, secured on padded arm board at <90 degrees abduction,rt arm padded across chest and secured, safety belt abdomen, tape over blanket over lower leg. bump under rt hip.
--- NOTE | 2024-02-25 14:27 | SUR.PREOP ---
Time out 1403 Block start time 1406 . Monitoring initiated and maintained throughout procedure. Oxygen and medications given by anesthesiologist instructions. Patient remained stable throughout procedure, no adverse reactions noted. Block end time 1421[].
[2024-02-25] MEDS: CEFAZOLIN VIAL 3 GM in SODIUM CHLORIDE 0.9% 100 ML IV (14:40)
--- NOTE | 2024-02-25 16:59 | P.OP_ITS ---
Operative Date/Time/Diagnoses Date of procedure: 02/25/24 Time of procedure: 17:00 Pre-op diagnosis: ankle fracture, right, diabetic peripheral neuropathy, syndesmosis disruption, uncontrolled diabetes, BMI 47 Post-op diagnosis: same Procedure & Clinicians Procedure: Open reduction internal fixation trimalleolar ankle fracture right CPT code 93750 Open reduction internal fixation syndesmosis CPT code 82667 right Modifier 22 was used for this surgery for this patient with BMI of 47 and the knee sent malunion. This fracture was greater than 4-weeks old and had copious callus and required extra time -osteotomes and effort for positioning dissection and fracture exposure and mobilization. Same procedure as scheduled: Yes Indications: The patient is a 63-year-old female with uncontrolled diabetes. BMI of 47. She had 2 events over the last 6 weeks or so 1 a fall while out of state and then later another cracking sound several weeks ago. She was ultimately diagnosed with a displaced ankle fracture. There were some delays in her referral shoe was 1st evaluated by Orthopedic surgery by myself yesterday. She has a displaced trimalleolar ankle fracture she has diabetic peripheral neuropathy and uncontrolled diabetes. She has been indicated for open reduction internal fixation to restore alignment reduce the risk of posttraumatic arthritis and prolonged immobility. She does have risk factors for wound healing problems and infection. Ultimately the benefits of surgery outweigh the risks. The risks and benefits of the procedure have been discussed with the patient and given the opportunity to ask questions. The risks of surgery include but are not limited to infection, malunion, nonunion, persistence of pain, damage to nerves and blood vessels, posttraumatic arthritis, DVT, PE, complications and . The patient expressed a thorough understanding of the risks and benefits of surgery and has elected to proceed. Consent was signed. Surgeon: Lisa Warren Click Yes if Unassisted: Yes Anesthesia Type: General and Peripheral nerve block Operative Notes Findings: Displaced Hutchison B fibula and goal fracture with copious callus, nascent malunion Disruption syndesmosis displaced medial malleolus fracture Osteoporosis Closure Type: primary Specimen(s): none sent Prosthetic devices, grafts, tissues, transplants, or devices: Arthrex 6 hole lateral locking fibular plate with 2.7 distal locking screws 3.5 nonlocking screws in the shaft Syndesmotic fixation with 3 tetra cortical 3.5 cortical screws Medial malleolus fixation with 2 xx4.0 cannulated lag screws Estimated Blood Loss (mL): 25 Blood products transfused: none Tourniquet time (min): 63 Procedure in detail: The patient was seen in the preoperative area the site of surgery was marked informed consent confirmed this was the right ankle. She was brought back to the operating room and regional block was placed by the anesthesia team. All bony prominences well padded. A well-padded thigh tourniquet was applied. The right lower extremity was prepped and draped in standard sterile fashion a formal time-out procedure was performed confirming the patient's side and site of surgery and weight based antibiotic dosing. All were in agreement. Attention turned to the right ankle Esmarch was used for exsanguination and tourniquet raised on the thigh to 250 mm of mercury. The lateral and medial incisions were marked out on the skin. Surgery was started with medial malleolar exposure and reduction. A incision was made anteromedially along the medial malleolus and dissected through the skin and subcutaneous tissue. Care was taken to protect the saphenous neurovascular bundle. This was a nascent malunion. Level of the fracture was identified and the callus was removed to expose the displaced fracture. Fracture was mobilized and curetted. Bone was soft. K-wire was used as a joystick and then they pointed reduction clamp to reduce the fracture. K-wires were advanced into the tibia and checked on AP and lateral imaging. Two parallel K-wires were placed these were then overdrilled and 4.0 cannulated screws were applied. Next attention turned to the lateral malleolus fracture and a lateral fibular incision was made just off the posterior edge of the fibula to the level of the lateral malleolus and extending approximately 10 cm proximally. Dissection was taken through the skin and subcutaneous tissue. Again there was copious callus formation from the nascent malunion. Peroneal tendons were retracted posteriorly. Dissection was brought down on the lateral cortex of the fibula. The rongeur was used to take down the callus at the level of the fracture site and once the callus was taken down an osteotome was used to delineate the fracture. Osteotomes and rongeur were used to mobilize the distal fracture once this was mobile reduction was attempted using reduction clamps. The bone was very osteoporotic. Therefore a locking plate was utilized. The K-wires were used to hold the reduction of the distal fibula to the talus to try to gain length. Because of the softness of the bone this was collapsing through the fracture site as I tried to get full length back. The locking plate was fit to the bone and secured distally with 2.7 locking screws. Proximally 3.5 cortical screws were applied. There was a disruption of the syndesmosis this was reduced with thumb pressure then a K-wire and 3 tetra cortical screws were applied due to this patient's known neuropathy known uncontrolled diabetic status and syndesmotic injury. Final x-rays with AP mortise and lateral were obtained demonstrate appropriate reduction and fixation and implant placement. Tourniquet was released hemostasis was achieved. Deep tissues were closed with 2-0 Vicryl and subcutaneous with 4-0 Monocryl and then 2-0 and 3-0 nylon were applied. A well- padded splint was applied with Xeroform gauze Webril bulky Mares cotton and a posterior and stirrup splint. The patient was awoken from anesthesia and taken to recovery room in good condition there were no immediate complications from this procedure. Counts were correct. Complications: none Post-operative Condition: stable Disposition: PACU Plan for aftercare: Weightbearing for 3 months for neuropathic ankle fracture Aspirin 325 b.i.d. for DVT prophylaxis Follow up in Orthopedic Clinic 3 weeks
== END 2024-02-25 17:52 | disposition home or self-care (01) ==
PROVIDERS: Referring Provider Orthopaedic Surgery Foot and Ankle Surgery; Visit Provider Orthopaedic Surgery Foot and Ankle Surgery
PROC: 0SSF04Z Reposition Right Ankle Joint with Internal Fixation Device, Open Approach (ICD-10-PCS; CPT 27814; principal; 2024-02-25 13:45)
DX: S82.841A Displaced bimalleolar fracture of right lower leg, initial encounter for closed fracture (principal); E11.42 Type 2 diabetes mellitus with diabetic polyneuropathy; G89.18 Other acute postprocedural pain; E66.01 Morbid (severe) obesity due to excess calories; Z68.42 Body mass index [BMI] 45.0-49.9, adult; W18.30XA Fall on same level, unspecified, initial encounter; Y92.002 Bathroom of unspecified non-institutional (private) residence as the place of occurrence of the external cause; Z11.52 Encounter for screening for COVID-19; Z79.4 Long term (current) use of insulin
CPT/HCPCS: 27814; 27829; 64450; 73600; 76000; 82962; 87635; C1713; J0330; J0690; J2250; J2405; J2704; J3010; J3490

== ENCOUNTER → 2024-04-30 09:07 | Outpatient (CLI) | payer OTHER, SELFPAY ==
[2023-07-22 00:01] VITALS: BMI 49.3
[2024-04-30 10:10] LABS: Hematocrit 41.1 % (36-46); Hemoglobin 13.2 g/dL (12.0-16.0); Mean Corpuscular HGB Conc 32.1 % (30-36); Mean Corpuscular Hemoglobin 24.9 PG (26-34); Mean Corpuscular Volume 77.6 fL (80-100); Platelet Count 208 X10^3/uL (150-400); Red Blood Cell Count 5.29 X10^6/uL (4.0-5.2); Red Cell Distribution Width 15.7 % (11.6-14.8); White Blood Cell Count 6.3 X10^3/uL (4.5-11.0)
[2024-04-30 10:23] LABS: Hemoglobin A1C% w Est Avg Glu 7.6 % (4.0-6.0)
[2024-04-30 10:35] LABS: Alanine Aminotransferase 16 IU/L (<35); Albumin 3.5 g/dL (3.5-5.0); Albumin Globulin Ratio 1.6 (1.0-2.8); Alkaline Phosphatase 86 U/L (38-126); Aspartate Aminotransferase 19 IU/L (14-36); BUN Creatinine Ratio 40.2 (6-22); Bilirubin Total 0.2 mg/dL (0.2-1.3); Blood Urea Nitrogen 37 mg/dL (7-17); Calcium 9.1 mg/dL (8.4-10.2); Carbon Dioxide 36 mmol/L (22-32); Chloride 96 mmol/L (98-107); Estimated Glomerular Filt Rate > 60 mL/min (>60); Globulin 2.2 g/dL (1.7-4.1); Glucose 336 mg/dL (80-110); HEMOLYSIS < 15 (0-50); Potassium 4.3 mmol/L (3.4-5.1); Sodium 136 mmol/L (137-145); Total Protein 5.7 g/dL (6.3-8.2)
== END ==
PROVIDERS: Referring Provider Obstetrics & Gynecology Gynecologic Oncology; Visit Provider Obstetrics & Gynecology Gynecologic Oncology
DX: C54.1 Malignant neoplasm of endometrium (principal)
CPT/HCPCS: 36415; 80053; 83036; 85027

== ENCOUNTER 2024-08-24 07:10 | Emergency (ER) | payer OTHER, SELFPAY ==
[2023-07-22 00:01] VITALS: BMI 49.3
[2024-08-24 07:16] VITALS: BP 195/77; PULSE 61; RESP 14; TEMP 36.1; O2SAT 99
--- NOTE | 2024-08-24 09:21 | ED.SKABFB ---
HPI - Skin/Abscess/Foreign Bdy General Chief complaint: Skin/Abscess/Foreign Body Stated complaint: Cellulitis On both bottom of legs Time Seen by Provider: 08/24/24 09:14 Source: patient, RN notes reviewed and old records reviewed Mode of arrival: Wheelchair Limitations: no limitations History of Present Illness HPI narrative: 64-year-old female history of diabetes with neuropathy, hypertension, dyslipidemia, prior TIA presents with complaint of bilateral cellulitis on her lower extremities. Patient states they have been there for months but has been slowly worsening. She states no fevers no chest pain, no shortness of breath no nausea or vomiting no other GI or urinary symptoms. She states it feels sort of like a sunburn. She notes she was pretty significant neuropathy in her feet does have some sensation in her lower extremities. Notes that blisters have formed over the last several weeks. She states seems like there was more scabbing in the over the weekend but the redness has not been spreading over the weekend. She presents today because she was saw her daughter over the weekend who was very concerned. Patient has had cellulitis in the past she was required antibiotics for it in the past has been followed with the wound care. She states it is not quite that bad at this point. Patient states she has not allergy to an IV antibiotic but no other antibiotic allergies. She has not been wearing her compression stockings because she thought she might injury of the skin for the past several weeks. She does not feel there has been a significant increase in swelling in her lower extremities. Related Data Home Medications Medication Instructions Recorded Confirmed aspirin 81 mg tablet,delayed 81 mg PO QPM 10/03/17 02/25/24 release omega 1-qqa-tvb-fish oil 1,000 mg 1 cap PO DAILY 10/03/17 07/21/23 (120 mg-180 mg) capsule (Fish Oil) amitriptyline 25 mg tablet 25 mg PO ONCE PM 07/21/23 02/25/24 metformin 500 mg tablet,extended 500 mg PO BID 07/21/23 02/25/24 release 24 hr omeprazole 20 mg capsule,delayed 40 mg PO QAM 07/21/23 02/25/24 release valsartan 80 mg tablet 80 mg PO DAILY 07/21/23 02/25/24 insulin aspart U-100 100 unit/mL 30 unit SUBCUT QAM DM2 07/22/23 02/25/24 subcutaneous solution (Novolog U-100 Insulin aspart) insulin glargine U-300 conc 300 70 unit SUBCUT QAM 07/22/23 02/25/24 unit/mL (3 mL) subcutaneous pen (Toujeo Max U-300 SoloStar) sitagliptin phos 50 mg-metformin 1 tab PO BEDTIME 02/25/24 02/25/24 ER 500 mg tablet,extended rel 24h mp (Janumet XR) Previous Rx's Medication Instructions Recorded simvastatin 40 mg tablet 40 mg PO BEDTIME #30 tabs 07/22/23 hydrocodone 5 mg-acetaminophen 325 1 tab PO Q4-6H PRN pain #14 tabs 02/03/24 mg tablet doxycycline hyclate 100 mg tablet 100 mg PO BID 10 days #20 tabs 08/24/24 Allergies Allergy/AdvReac Type Severity Reaction Status Date / Time Iodinated Contrast Media Allergy Severe Difficulty Verified 08/24/24 07:16 Breathing codeine [CODEINE] AdvReac Unknown NAUSEA/VOMI Verified 08/24/24 07:16 TTING Review of Systems Review of Systems ROS Unobtainable: All systems reviewed & are unremarkable except as noted in HPI and below Patient History Medical History HLD (hyperlipidemia) HTN (hypertension) Diabetes Neuropathy Social History household members: spouse Smoking Status: Unknown if ever smoked alcohol intake: current Smoking Status: Unknown if ever smoked alcohol intake frequency: holidays/special occasions only Exam Narrative Exam Narrative: GENERAL: Alert and oriented x three, female in mild distress HEENT: Head normocephalic, atraumatic, EOMI, pupils reactive, face symmetric, moist mucous membranes NECK: Supple, full range of motion CARDIOVASCULAR: Regular rate and rhythm without murmurs, rubs or gallops. RESPIRATORY: Breath sounds equal bilaterally, no wheezes rales or rhonchi. ABDOMEN: Soft, nontender. Normoactive bowel sounds all 4 quadrants. No guarding or rebound, rigidity, no mass : No CVA tenderness EXTREMITIES: Normal range of motion, no clubbing. Patient has mild edema bilaterally. Patient has patchy erythema over her shins and calf but it was not circumferential is warm to touch.. Left greater than right. There are some areas of blister and scabbing. There was no weeping. Patient is nontender to touch. Has normal range of motion. Cap refills less than 2 seconds. There is sparing of her feet. Neurovascularly intact. NEUROLOGICAL: Cranial nerves II through XII grossly intact. Moving all extremities SKIN: Warm, dry, no petechiae, no rashes or lesions. Initial Vital Signs Initial Vital Signs: Vital Signs Temperature 97.0 F L 08/24/24 07:16 Pulse Rate 61 08/24/24 07:16 Respiratory Rate 14 08/24/24 07:16 Blood Pressure 195/77 H 08/24/24 07:16 Pulse Oximetry 99 08/24/24 07:16 Oxygen Delivery Method Room Air 08/24/24 07:16 Course Vital Signs Vital signs: Vital Signs - 8 hr 08/24/24 10:00 Temperature 97.7 F Pulse Rate 65 Respiratory Rate 18 Blood Pressure 194/77 H Pulse Oximetry 95 Oxygen Delivery Method Room Air MDM - Skin/Abscess/Foreign Bdy MDM Narrative Medical decision making narrative: Discussed with patient she was has not noticed significant increase in swelling in her lower extremities, does not appear to have bilateral lower extremity cellulitis has not been using her compression stockings for the last couple of weeks because she felt like they were quite scratchy discussed using nonstick to the areas of blister with George wrap and then compression stockings over. We did discuss obtaining lab and imaging but patient defers. Has had this scenario before does not think that she requires that at this time we will start oral antibiotics. She was nontoxic. We will see if we can send referral for wound care as she was seen them in the past but have her follow up with primary care in the next week for rechecked. Patient feels comfortable with this plan. Discharge Plan Departure Patient Disposition: Home Clinical Impression: Bilateral cellulitis of lower leg Instructions: DI for Cellulitis -- Adult Activity Restrictions/Additional Instructions: Follow up with your primary care, call for an appointment. I have also sent your information to wound care please call to see if you can set up follow up with them as well. Take oral antibiotics until completed. Prescription sent to I would recommend using nonstick dressings to the areas of blisters with the George wrap and then wear your compression stockings over this. Elevate your legs as much as you are able. Please return for fevers, rapidly worsening redness, increasing changes to the skin or blistering, chest pain or shortness of breath, new pain, any purulent discharge or other new or concerning changes. Prescriptions: New doxycycline hyclate 100 mg tablet 100 mg PO BID 10 Days Qty: 20 0RF No Action hydrocodone-acetaminophen 5-325 mg tablet 1 tab PO Q4-6H PRN (Reason: pain) Qty: 14 0RF aspirin 81 mg tablet,delayed release (DR/EC) 81 mg PO QPM omega 7-min-xau-fish oil [Fish Oil] 1,000 mg (120 mg-180 mg) Capsule 1 cap PO DAILY amitriptyline 25 mg tablet 25 mg PO ONCE PM valsartan 80 mg tablet 80 mg PO DAILY metformin 500 mg tablet extended release 24 hr 500 mg PO BID omeprazole 20 mg capsule,delayed release(DR/EC) 40 mg PO QAM insulin aspart U-100 [Novolog U-100 Insulin aspart] 100 unit/mL solution 30 unit SUBCUT QAM Patient Comments: [NO ORIGINAL SIG] insulin glargine U-300 conc [Toujeo Max U-300 SoloStar] 300 unit/mL (3 mL) insulin pen 70 unit SUBCUT QAM Patient Comments: [NO ORIGINAL SIG] simvastatin 40 mg tablet 40 mg PO BEDTIME Qty: 30 0RF Janumet XR 50-500 mg tablet, ER multiphase 24 hr 1 tab PO BEDTIME Referrals: ProviderJeff [Primary Care Provider] - Stand Alone Forms: Patient Portal/API/Survey
--- NOTE | 2024-08-24 09:56 | PC.NURSE ---
[facility] referral signed by was faxed to [phone] and labeled with a patient Identification sticker and placed in medical records by DELBERT Jain/SHANNEN at [id number] 08/24/24.
[2024-08-24 10:00] VITALS: BP 194/77; PULSE 65; RESP 18; TEMP 36.5; O2SAT 95
== END 2024-08-24 10:04 | disposition home or self-care (01) ==
PROVIDERS: Emergency Provider Emergency Medicine
DX: L03.116 Cellulitis of left lower limb (principal); L03.115 Cellulitis of right lower limb
CPT/HCPCS: 99281